=== PATIENT | male | born 1960 | race Caucasian/White ===

== ENCOUNTER → 2020-05-25 09:09 | Outpatient (BNVA) | payer OTHER, SELFPAY | PROVIDERS: PCP Internal Medicine; Referring Provider Internal Medicine; Visit Provider Orthopaedic Surgery | DX: Z76.89 Persons encountering health services in other specified circumstances (principal) ==

== ENCOUNTER → 2020-05-31 12:32 | Outpatient (BNVA) | payer OTHER, SELFPAY | PROVIDERS: PCP Internal Medicine; Visit Provider Orthopaedic Surgery | DX: Z76.89 Persons encountering health services in other specified circumstances (principal) ==

== ENCOUNTER → 2020-06-07 13:31 | Outpatient (BNVA) | payer OTHER, SELFPAY | PROVIDERS: PCP Internal Medicine; Visit Provider Physician Assistant | DX: Z76.89 Persons encountering health services in other specified circumstances (principal) ==

== ENCOUNTER 2020-06-11 15:03 | Outpatient (REF) | payer OTHER, SELFPAY | END 2020-06-11 15:04 | disposition home or self-care (01) | LOC: HO.LNP 15:03 | PROVIDERS: Visit Provider Physician Assistant | DX: M16.31 Unilateral osteoarthritis resulting from hip dysplasia, right hip (principal) | CPT/HCPCS: 94060; 94727; 94729 ==

== ENCOUNTER 2020-07-03 09:57 | Outpatient (REF) | payer OTHER, SELFPAY ==
[2020-07-03 11:05] LABS: MANUAL DIFF FLAG NO
[2020-07-03 11:10] LABS: Basophils Percent Auto 0.5 % (0-2); Eosinophils Absolute Auto 0.1 X10*3/uL (0.0-0.4); Eosinophils Percent Auto 1.6 % (0-4); Imm Gran Abs Auto 0.01 X10*3/uL (0.00-0.03); Imm Gran Pct Auto 0.2 % (0.0-0.4); Lymphocytes Absolute Auto 1.7 X10*3/uL (1.2-4.9); Lymphocytes Percent Auto 37.7 % (20-40); Mean Corpuscular Hemoglobin 29.6 pg (27.0-33.0); Mean Corpuscular Volume 87.2 fL (80-98); Monocytes Absolute Auto 0.4 X10*3/uL (0.1-1.2); Monocytes Percent Auto 8.6 % (2-11); Neutrophils Absolute Auto 2.3 X10*3/uL (2.0-8.3); Neutrophils Percent Auto 51.4 % (45-73); Platelet Count 179 X10*3/uL (160-400); White Blood Count 4.4 X10*3/uL (4.8-10.8)
[2020-07-03 11:44] LABS: Anion Gap 12 (12-20); Blood Urea Nitrogen 15 mg/dL (9-16); Calcium 9.1 mg/dL (8.4-10.2); Carbon Dioxide 27 mmol/L (22-29); Chloride 102 mmol/L (96-108); Estimated Glomerular Filt Rate > 60; Glucose Random 97 mg/dL (60-115); Potassium 4.3 mmol/l (3.3-5.1); Sodium 137 mmol/L (135-145)
[2020-07-10 13:59] LABS: Hematocrit 44.1 % (42-52)
[2020-07-10 14:01] LABS: Mean Platelet Volume 9.4 fL (9.4-12.4); Red Blood Count 5.06 X10*6/uL (4.60-5.80)
== END 2020-07-03 09:58 | disposition home or self-care (01) ==
LOC: HO.LAB 09:57
PROVIDERS: Physician Assistant; PCP Internal Medicine; Visit Provider Orthopaedic Surgery
DX: Z01.812 Encounter for preprocedural laboratory examination (principal)
CPT/HCPCS: 36415; 80048; 85025; 86850

== ENCOUNTER 2020-07-09 06:13 | Inpatient (IN) | payer OTHER, SELFPAY ==
[2020-06-11 11:57] VITALS: BP 153/96; PULSE 72; RESP 20; O2SAT 99; BMI 37.5
--- NOTE | 2020-06-11 12:49 | HO.ANESPROP2 ---
HPI - Anesthesia Eval Consult details Narrative: 59yo M for R KALEIGH PCP Cleared Pt cx'd DOS d/t infection risk. To be rescheduled after abx. [facility] Past Medical History Medical History (Updated 06/11/20 @ 12:50 by Talisha Perry) Arthritis Elevated cholesterol LIANNA on CPAP Seasonal allergies Skin cancer Surgical History Surgical History History of bilateral carpal tunnel release History of total right knee replacement History of vasectomy Hx of colonoscopy Hx of esophagogastroduodenoscopy Hx of nasal septoplasty S/P lumbar microdiscectomy S/P skin cancer resection Social History Social History Are you a primary morning caregiver to a significant other at home: No Do you presently have visiting nurse or other home services: No Smoking Status: Never smoker Use of substances other than those prescribed or required for medical reasons: No Have you been hit, kicked, punched, or otherwise hurt by someone within the past year? If so, by whom?: No Advance Directives: No Advance Directives Information Provided: No Recently lost weight without trying: No Narrative Narrative: No recent illness >4 mets with walking Meds Allergies Allergy/AdvReac Type Severity Reaction Status Date / Time seasonal Allergy Unknown nasal Uncoded 06/08/20 12:56 congestion, affects hearing morphine AdvReac Unknown O2 dropped Uncoded 06/08/20 12:56 Home Medications Medication Instructions Recorded Confirmed Type fexofenadine 180 mg PO DAILY 06/08/20 06/08/20 History ibuprofen [Motrin] 800 mg PO Q12H PRN 06/08/20 06/08/20 History rosuvastatin 1 tab PO BEDTIME 06/08/20 06/08/20 History Exam Exam Date and Time: June 11, 2020 1249 Height,Weight and Vital Signs: Height 5 ft 8 in Weight 112.037 kg Last Vital Signs Pulse 72 06/11/20 11:57 Resp 20 06/11/20 11:57 BP 153/96 H 06/11/20 11:57 Pulse Ox 99 06/11/20 11:57 Pertinent Lab Results Pertinent Lab Results: Laboratory Tests 06/11/20 06/11/20 14:13 14:13 WBC 5.5 Hgb 14.9 Hct 43.9 Plt Count 191 Sodium 140 Potassium 4.5 Chloride 103 BUN 20 H Creatinine 1.01 Narrative Narrative: EKG 06/11/20: NSR, nonspecific T wave abn ECHO 2015: LVEF 60-65% Exercise Stress 2015: no evidence of ischemic ekg changes Airway Mallampati Class: III TM Dist: >3cm Neck ROM: Full Loose/Missing/Broken Teeth: No (Left lower permanent bridge) Heart: RRR Lungs: CTAB Assessment and Plan Assessment Anesthesia Assessment: Anesthesia Plan Discussed and PAT Visit
--- NOTE | 2020-06-11 14:08 | ECG_ITS ---
Test Reason : HIP SURG ANESTHESIA Blood Pressure : / mmHG Vent. Rate : 061 BPM Atrial Rate : 061 BPM P-R Int : 166 ms QRS Dur : 082 ms QT Int : 428 ms P-R-T Axes : 029 042 015 degrees QTc Int : 430 ms Normal sinus rhythm Nonspecific T wave abnormality Inferior leads Borderline ECG When compared with ECG of 10-OCT-2013 21:49, No significant changes seen Referred By: Penelope Mehta Electronically Signed By:KURTIS BATISTA MD
[2020-06-11 14:28] LABS: MANUAL DIFF FLAG NO
[2020-06-11 14:34] LABS: Basophils Percent Auto 0.5 % (0-2); Eosinophils Absolute Auto 0.1 X10*3/uL (0.0-0.4); Eosinophils Percent Auto 1.5 % (0-4); Hematocrit 43.9 % (42-52); Hemoglobin 14.9 g/dl (14.0-18.0); Imm Gran Abs Auto 0.01 X10*3/uL (0.00-0.03); Imm Gran Pct Auto 0.2 % (0.0-0.4); Lymphocytes Percent Auto 35.8 % (20-40); Mean Corpuscular HGB Conc 33.9 g/dl (31.0-36.0); Mean Corpuscular Hemoglobin 30.3 pg (27.0-33.0); Mean Corpuscular Volume 89.2 fL (80-98); Mean Platelet Volume 9.5 fL (9.4-12.4); Monocytes Absolute Auto 0.5 X10*3/uL (0.1-1.2); Monocytes Percent Auto 8.4 % (2-11); Neutrophils Percent Auto 53.6 % (45-73); Platelet Count 191 X10*3/uL (160-400); Red Blood Count 4.92 X10*6/uL (4.60-5.80); Red Cell Distribution Width 12.4 % (11.0-16.0); White Blood Count 5.5 X10*3/uL (4.8-10.8)
[2020-06-11 14:58] LABS: Anion Gap 13 (12-20); Blood Urea Nitrogen 20 mg/dL (9-16); Calcium 8.5 mg/dL (8.4-10.2); Carbon Dioxide 29 mmol/L (22-29); Chloride 103 mmol/L (96-108); Creatinine Clr Calc Pharmacy 96.8; Estimated Glomerular Filt Rate > 60; Glucose Random 92 mg/dL (60-115); Potassium 4.5 mmol/l (3.3-5.1); Sodium 140 mmol/L (135-145)
[2020-06-12 08:31] LABS: MRSA Nasal PCR POSITIVE (Negative); SA Nasal PCR POSITIVE (Negative)
--- NOTE | 2020-06-14 21:49 | HP_ITS ---
DATE OF SERVICE: 06/18/2020 HISTORY OF PRESENT ILLNESS: The patient is scheduled for right total hip by Dr. Singh on 06/18/2020. His past history, previous surgeries include vasectomy, lumbar disk deviated septum, left carpal tunnel, and right total knee replacement. Major illnesses have been dyslipidemia, allergic rhinitis, and degenerative joint disease. REVIEW OF SYSTEMS: HEENT: He is not having any headaches. No problem with his vision or hearing. No sore throat or sinus trouble. CARDIORESPIRATORY: Denies any chest pain, cough, or shortness of breath. GI: No nausea or vomiting. No diarrhea or constipation. No heartburn. : No dysuria. He has nocturia x1. BONE AND JOINT: He complained of pain over the right hip and he has pain with ambulation. ENDOCRINE: No diabetes or thyroid problems. DERMATOLOGIC: No rashes. NEUROLOGIC: No history of syncope or seizures. Operations have included vasectomy, lumbar disk deviated septum, left carpal tunnel, and right total hip replacement. MEDICATIONS: His medications at home have been Crestor 10 mg daily for dyslipidemia, Mucinex for occasional bronchitis, and he has been using some Motrin, but he has stopped that recently. SOCIAL HISTORY: He is . Lives with his . He does not smoke and has a few drinks of alcohol a week. 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 His mother at 80 of GI bleed. Father at 62 of stroke and heart attack. He has 2 daughters and a son alive and well. PHYSICAL EXAMINATION: GENERAL: Shows a 59-year-old man. He is alert, in no acute distress. HEENT: His pupils were equal and reactive. Sclerae, non-icteric. Throat, normal. NECK: Supple without nodes. LUNGS: Clear. HEART: Regular. No murmurs. ABDOMEN: Nontender. No masses. EXTREMITIES: Without cyanosis or edema. He has some limitation of motion with external rotation of the right hip. SKIN: Without rash. GENITALIA AND RECTAL: Done at the time of his physical last August were normal. NEUROLOGIC: Exam was normal. The patient is medically cleared for right total hip, did have a cardiogram, it showed some minor nonspecific ST-T, it is basically unchanged from 08/18/2019. His labs showed a hemoglobin of 14.9, hematocrit of 43.9, white count of 5500, and platelets are 191,000. His electrolytes were normal. BUN 20 and creatinine 1.01. Random sugar was 92 and calcium was 8.5. The patient is medically cleared for right hip replacement by Dr. Singh on 06/18/2020. MD TIMMY Lundberg/SARAH / [id number]
[2020-06-18 06:03] VITALS: BP 140/82; PULSE 63; RESP 18; TEMP 36.2; O2SAT 96
[2020-06-18] MEDS: Lactated Ringers 1,000 ML 100 ML IVCONT (06:38)
[2020-06-18] MEDS: oxyCODONE HCl ER 10 MG TAB.ER.12H PO (06:39)
[2020-06-18 06:47] LABS: SARS COV2 PCR INHOUSE NEGATIVE (Negative)
--- NOTE | 2020-06-18 07:45 | PC.NURSE ---
pt surgery cancelled by dr shah will f/u in a few weeks when healed and will be on abx ptaware of plan of care
--- NOTE | 2020-07-04 09:15 | P.CONAN_ITS ---
Documented by User: Talisha Herbertney 07/04/20 09:21 HPI - Anesthesia Eval Consult details Narrative: 59yo M for Hip Total Replacement right Cx'd 06/18/20 d/t rash/infx risk on operative leg. Completed course of abx. [facility] Past Medical History Medical History Arthritis Elevated cholesterol High cholesterol LIANNA on CPAP Seasonal allergies Skin cancer Family History Family History Father No problems noted. Mother No problems noted. Surgical History Surgical History History of bilateral carpal tunnel release History of total right knee replacement History of total right knee replacement History of vasectomy Hx of colonoscopy Hx of esophagogastroduodenoscopy Hx of nasal septoplasty S/P lumbar microdiscectomy S/P skin cancer resection Social History Social History Are you a primary acute care certified nursing assistant to a significant other at home: No Do you presently have visiting nurse or other home services: No Smoking Status: Never smoker Use of substances other than those prescribed or required for medical reasons: No Have you been hit, kicked, punched, or otherwise hurt by someone within the past year? If so, by whom?: No Advance Directives: No Advance Directives Information Provided: No Recently lost weight without trying: No Current occupational status: retired Narrative Narrative: No recent illness >4 mets with walking Meds Allergies Allergy/AdvReac Type Severity Reaction Status Date / Time morphine Allergy respiratory Verified 07/03/20 11:20 seasonal Allergy Unknown nasal Uncoded 07/03/20 11:20 congestion, affects hearing morphine AdvReac Unknown O2 dropped Uncoded 07/03/20 11:20 Home Medications Medication Instructions Recorded Confirmed Type aspirin 81 mg tablet,delayed 81 mg PO DAILY 05/31/20 07/03/20 History release fexofenadine 180 mg tablet 180 mg PO DAILY 05/31/20 07/03/20 History ibuprofen 800 mg tablet 800 mg PO Q8H 05/31/20 07/03/20 History rosuvastatin 10 mg tablet 10 mg PO BEDTIME 05/31/20 07/03/20 History fexofenadine 180 mg PO DAILY 06/08/20 06/08/20 History ibuprofen [Motrin] 800 mg PO Q12H PRN 06/08/20 06/08/20 History rosuvastatin 1 tab PO BEDTIME 06/08/20 06/08/20 History Exam Exam Date and Time: July 04, 2020914 Height,Weight and Vital Signs: Height 5 ft 8 in Weight 112.037 kg Last Vital Signs Temp 97.2 F 06/18/20 06:03 Pulse 63 06/18/20 06:03 Resp 18 06/18/20 06:03 BP 140/82 H 06/18/20 06:03 Pulse Ox 96 06/18/20 06:03 Pertinent Lab Results Pertinent Lab Results: Laboratory Tests 06/11/20 06/11/20 06/11/20 14:13 14:13 14:13 WBC 5.5 RBC 4.92 Hgb 14.9 Hct 43.9 MCV 89.2 MCH 30.3 MCHC 33.9 RDW 12.4 Plt Count 191 MPV 9.5 Immature Gran % (Auto) 0.2 Neut % (Auto) 53.6 Lymph % (Auto) 35.8 Sunflower % (Auto) 8.4 Eos % (Auto) 1.5 Baso % (Auto) 0.5 Lymph # (Auto) 2.0 Sunflower # (Auto) 0.5 Eos # (Auto) 0.1 Baso # (Auto) 0.0 Abs Immat Gran (auto) 0.01 Absolute Neuts (auto) 3.0 Absolute Nucleated RBC 0.000 Nucleated RBC % (auto) 0.0 Sodium 140 Potassium 4.5 Chloride 103 Carbon Dioxide 29 Anion Gap 13 BUN 20 H Creatinine 1.01 Estim Creat Clear Calc 96.8 Estimated GFR > 60 Random Glucose 92 Calcium 8.5 Nasal Screen MRSA (PCR) Nasal S. aureus Screen Nasal MRSA/S.aureus Interp Coronavirus (PCR) Blood Type O Positive Antibody Screen NEGATIVE 06/11/20 06/18/20 07/03/20 Unknown 05:38 10:50 WBC RBC Hgb Hct MCV MCH MCHC RDW Plt Count MPV Immature Gran % (Auto) Neut % (Auto) Lymph % (Auto) Sunflower % (Auto) Eos % (Auto) Baso % (Auto) Lymph # (Auto) Sunflower # (Auto) Eos # (Auto) Baso # (Auto) Abs Immat Gran (auto) Absolute Neuts (auto) Absolute Nucleated RBC Nucleated RBC % (auto) Sodium Potassium Chloride Carbon Dioxide Anion Gap BUN Creatinine Estim Creat Clear Calc Estimated GFR Random Glucose Calcium Nasal Screen MRSA (PCR) POSITIVE A Nasal S. aureus Screen POSITIVE A Nasal MRSA/S.aureus Interp SEE NOTE Coronavirus (PCR) NEGATIVE Blood Type O Positive Antibody Screen NEGATIVE Narrative Narrative: EKG 06/11/20: NSR, nonspecific T wave abn ECHO 2014: LVEF 60-65% Exercise Stress 2015: no evidence of ischemic ekg changes Airway Mallampati Class: III Neck ROM: Full Loose/Missing/Broken Teeth: No (LL perm bridge) Heart: RRR Lungs: CTAB Other: Exam performed at [facility] 06/11/20. Assessment and Plan Assessment Anesthesia Assessment: Anesthesia Plan Discussed, [facility] Visit (06/11/20) and Chart Reviewed Documented by User: Abelardo Nava MD 07/09/20 07:32 [facility] Past Medical History Medical History Arthritis Elevated cholesterol High cholesterol LIANNA on CPAP Seasonal allergies Skin cancer Family History Family History Father No problems noted. Mother No problems noted. Surgical History Surgical History History of bilateral carpal tunnel release History of total right knee replacement History of total right knee replacement History of vasectomy Hx of colonoscopy Hx of esophagogastroduodenoscopy Hx of nasal septoplasty S/P lumbar microdiscectomy S/P skin cancer resection Social History Social History Are you a primary acute care certified nursing assistant to a significant other at home: No Do you presently have visiting nurse or other home services: No Smoking Status: Never smoker Use of substances other than those prescribed or required for medical reasons: No Have you been hit, kicked, punched, or otherwise hurt by someone within the past year? If so, by whom?: No Advance Directives: No Advance Directives Information Provided: No Recently lost weight without trying: No Current occupational status: retired Meds Allergies Allergy/AdvReac Type Severity Reaction Status Date / Time morphine Allergy respiratory Verified 07/03/20 11:20 seasonal Allergy Unknown nasal Uncoded 07/03/20 11:20 congestion, affects hearing morphine AdvReac Unknown O2 dropped Uncoded 07/03/20 11:20 Home Medications Medication Instructions Recorded Confirmed Type aspirin 81 mg tablet,delayed 81 mg PO DAILY 05/31/20 07/03/20 History release fexofenadine 180 mg tablet 180 mg PO DAILY 05/31/20 07/03/20 History ibuprofen 800 mg tablet 800 mg PO Q8H 05/31/20 07/03/20 History rosuvastatin 10 mg tablet 10 mg PO BEDTIME 05/31/20 07/03/20 History fexofenadine 180 mg PO DAILY 06/08/20 06/08/20 History ibuprofen [Motrin] 800 mg PO Q12H PRN 06/08/20 06/08/20 History rosuvastatin 1 tab PO BEDTIME 06/08/20 06/08/20 History Assessment and Plan Assessment Anesthesia Assessment: Anesthesia Plan Discussed and Chart Reviewed Final Anesthetic Review NPO: Yes ASA Class: III Final Preanesthetic Review: No Changes in Pt Med Stat, Meds/Allgs Chart Reviewed, Consent Obtained/Reviewed and Anes Risks/Benef Reviewed Patient Risk: Intermediate Procedure Risk: Intermediate Anesthetic Plan Anesthetic Plan: GA and Regional Block Disposition: Standard PACU
[2020-07-09] VITALS (19 sets, daily range): BP systolic 110–132; BP diastolic 60–81; PULSE 54–69; RESP 12–20; TEMP 36.1–37; O2SAT 95–100
[2020-07-09 06:51] LABS: COVID-19 Test Negative (Negative); IDNOW Serial# 9DD0AD1C
[2020-07-09] MEDS: oxyCODONE HCl ER 10 MG TAB.ER.12H PO (06:53)
--- NOTE | 2020-07-09 07:02 | PC.NURSE ---
patient has a right lower leg scratch that is scabbed and healed. patient states he was seen on thursday to check the wound. ok to proceed per patient. text instrum just to verify.
[2020-07-09] MEDS: Lactated Ringers 1,000 ML 100 ML IVCONT ×2 (07:09→14:16)
--- NOTE | 2020-07-09 07:15 | PC.NURSE ---
instrum aware ok to proceed
--- NOTE | 2020-07-09 07:58 | PC.NURSE ---
patient receving nerve block.
--- NOTE | 2020-07-09 08:10 | MHC.SHP ---
Pre-Procedural Eval Section A The patient is an INPATIENT: No Changes since office visit: No Cold of Flu in the past 2 weeks, No New Medical Problems, No Changes in Medication and No Patient answered all questions The History & Physical has been completed within 30 days and I have reviewed it.: Yes Section B Chief Complaint: RIGHT TOTAL HIP ARTHROPLASTY Allergies: Allergies Allergy/AdvReac Type Severity Reaction Status Date / Time morphine Allergy respiratory Verified 07/03/20 11:20 seasonal Allergy Unknown nasal Uncoded 07/03/20 11:20 congestion, affects hearing morphine AdvReac Unknown O2 dropped Uncoded 07/03/20 11:20 Plan Patient has been examined and remains a candidate for the planned procedure
--- NOTE | 2020-07-09 08:25 | PC.NURSE ---
called kris mendez rn at [facility] to verify when he last took his asa and plavix and waas 07/04 per visiting rn.
--- NOTE | 2020-07-09 08:26 | PC.NURSE ---
labs being drawn at this time.
--- NOTE | 2020-07-09 08:43 | PC.NURSE ---
patients surgery is delayed due to vancomycin infusing. 2grams takes two hours per pharmacy
--- NOTE | 2020-07-09 11:08 | PM.PRCOR ---
Brief Operative Note Date of procedure: 07/09/20 Pre-op diagnosis: oa right hip Post-op diagnosis: same Procedure: RIGHT KALEIGH Anesthesia: GETA and regional Surgeon: Delisa Singh Electrical Engineering Designer: Penelope Mehta Estimated blood loss (mL): 150 Condition: stable Disposition: PACU
[2020-07-09] MEDS: HYDROmorphone HCl 0.5 MG/0.5 ML SYRINGE 0.25 MG IVPUSH ×4 (11:41→11:56)
[2020-07-09] MEDS: HYDROmorphone HCl 0.5 MG/0.5 ML SYRINGE IVPUSH ×2 (12:01→12:11)
--- NOTE | 2020-07-09 13:07 | OP_ITS ---
SURGEON: Delisa Singh MD PREOPERATIVE DIAGNOSIS: Osteoarthritis/hip dysplasia, right hip. POSTOPERATIVE DIAGNOSIS: Osteoarthritis/hip dysplasia, right hip. PROCEDURE PERFORMED: Right total hip arthroplasty - Maxim Accolade II, size 4 x 132 femur, 58 mm revision Tritanium acetabulum, 36 mm x 0 mm BIOLOX head, 36 mm x 0 acetabular liner. ESTIMATED BLOOD LOSS: COMPLICATIONS: ANESTHESIA: ASSISTANTS: ALFONZO West. SPECIMENS: CLINICAL NOTE: This gentleman has had ongoing problem with pain and discomfort involving his right hip. He had failed nonoperative management. Therefore, after explaining the risks, benefits, and alternatives and answering all his questions, it was mutually agreed upon to carry out the following procedure. DESCRIPTION OF PROCEDURE: Under a fascia diana block as well as general anesthetic, the patient was placed in the left lateral decubitus position with the right hip up. The right hip was then prepped and draped in standard fashion with the right leg free. Surgical time-out was then performed. The patient was identified, procedure confirmed, site confirmed. Medical analogy and history reviewed. Preoperative antibiotics were given. Standard DVT prophylaxis was in place. All other items were discussed and agreed upon. A standard anterolateral approach to the hip was carried out, taken down through subcutaneous tissues. Hemostasis was achieved along the way using electrocautery, brought us down to the level of fascia diana, which was divided along the length of the incision. This brought us to the abductor musculature with the anterior two-thirds were taken through the tendon directly onto the trochanter and elevated off the capsule down to the level of the acetabulum. Capsulectomy was then performed. The hip was dislocated. It was resected according to the preoperative templating. We then turned our attention to the acetabulum. There was an abundant amount of soft tissue, capsular inflammatory tissue as well as labrum, this was all removed. The floor was identified. It was noted that it was superior and lateral and we would have to medialize it somewhat. Starting with a 5 mm reamer, it was sequentially reamed up to a 57 mm depth. This had good coverage anterior and posteriorly, a little uncovered superiorly. However, fully seated, had circumferential bleeding. A trial reduction was performed with the 57 mm trial. This showed good purchase and excellent alignment. Therefore, the 58 mm revision acetabulum was selected and brought up on the table. The acetabulum was thoroughly irrigated. The permanent component was brought up on the table, and was inserted with excellent purchase and fully seated. The 0 degree trial liner was put into place for a 36 mm head. We then turned our attention to the femur. Box osteotome was used to lateralize the canal. The T-reamer was used to sound the canal. It was sequentially broached from a 0 to a 4, where the 4 was just a little bit proud, but it had excellent fit and fill and rotational control and that was what we had templated preoperatively. The reduction was performed with the 132 degree collar and the standard head for 36 mm. It was located, had excellent leg lengths, full range of motion, and stability, and therefore the size 4 Accolade II x 136 femur with the 36 mm standard BIOLOX head and the 36 mm 0 degree acetabular liner was selected and brought up on the table. All the trial components were removed after the hip was dislocated. The acetabulum was thoroughly irrigated. The permanent liner was tapped into place. Turning our attention to the femur. It was thoroughly irrigated. The permanent components were brought up on the table. It was press-fit into place as the broach had been. The Otto taper was cleaned and dried. The head was tapped into place. Final reduction was then performed demonstrating the hip had excellent leg lengths, stability, had full range of motion. Therefore, we proceeded to closure. Wound was thoroughly irrigated. The abductor musculature repaired with #2 Dexon. Fascia idana was closed with #2 Quill suture. Subcutaneous tissue was approximated using interrupted 2-0 Dexon. Skin was closed with jay. Sterile dressing was then applied. The patient's anesthesia was then reversed and transferred supine to the room bed, then taken to recovery room in good condition. Intraoperatively, there was a second unit of tranexamic acid given at the time of closure as there was 150 mL blood loss. No intraoperative transfusions or complications. MD BHUPINDER Shultz/SARAH / [id number]
[2020-07-09] MEDS: Acetaminophen 325 MG TABLET 650 MG PO ×2 (16:06→21:45)
[2020-07-09] MEDS: oxyCODONE HCl Immed Release 5 MG TABLET 10 MG PO ×2 (16:06→21:45)
[2020-07-09] MEDS: Ketorolac Tromethamine 15 MG/ML VIAL IVPUSH ×2 (16:06→21:45)
[2020-07-09] MEDS: 0.9 % Sodium Chloride Flush 3 ML SYRINGE IVFLUSH (21:47)
[2020-07-10] VITALS (8 sets, daily range): BP systolic 107–156; BP diastolic 48–78; PULSE 60–78; RESP 18–71; TEMP 36.3–36.6; O2SAT 98–100; BMI 37.5
[2020-07-10] MEDS: Lactated Ringers 1,000 ML 100 ML IVCONT (02:41)
[2020-07-10] MEDS: Acetaminophen 325 MG TABLET 650 MG PO ×4 (03:23→22:09)
[2020-07-10] MEDS: Ketorolac Tromethamine 15 MG/ML VIAL IVPUSH ×4 (03:23→22:10)
[2020-07-10] MEDS: oxyCODONE HCl Immed Release 5 MG TABLET 10 MG PO ×4 (03:24→22:10)
--- NOTE | 2020-07-10 05:37 | PC.NURSE ---
PATIENT IS POST OP DAY #1RIGHT TOTAL HIP, SLEPT WELL, AQUACEL DSG C-D-I WITH SMALL OLD STAIN AND GENERALIZED HIP AND THIGH EDEMA. SCHEDULED PAIN MEDICATIONS ORDERED SEQUENTIAL STOCKINGS ON BILAT, VSS.
[2020-07-10 06:51] LABS: Hematocrit 31.3 % (42-52); Hemoglobin 10.7 g/dl (14.0-18.0)
--- NOTE | 2020-07-10 07:00 | XR_ITS ---
EXAMINATION: XR HIP, RIGHT CLINICAL INFORMATION: Postop COMPARISON: Previous x-ray most recent January 2020 TECHNIQUE: Two views of the right hip and one view of the pelvis. FINDINGS: There is a new right hip replacement in satisfactory position. No fracture or dislocation is seen. Bones of the pelvis are unremarkable. There are postoperative changes to the soft tissues. XR/XR hip RT w PEL1V IMPRESSION: Satisfactory appearance of right hip replacement.
--- NOTE | 2020-07-10 07:46 | HO.POSTANES ---
Post Anesthesia Evaluation Post Anesthesia Evaluation Vital Signs: Vital Signs Temp Pulse Resp BP Pulse Ox 07/10/20 07:41 97.8 F 60 18 135/63 99 07/10/20 04:00 97.9 F 69 71 H 107/48 L 100 07/09/20 23:55 98.2 F 67 20 132/60 100 07/09/20 19:54 98.1 F 69 20 113/72 100 Anesthesia: General Mental Status: Awake Pain Control: Satisfactory Nausea/Vomiting: None Hydration: Adequate Anesthesia-Related Issues: No Anes. Related Issues
--- NOTE | 2020-07-10 07:57 | PM.PNORT ---
Subjective Subjective Date of Service: 07/10/20 Interval history: POD1 s/p RTHA resting in bed. Pt. states he has significant pain with movement but is manageable when laying in bed. No overnight events. Physical Exam Vital Signs: Vital Signs: Last Vital Signs Temp 97.8 F 07/10/20 07:41 Pulse 60 07/10/20 07:41 Resp 18 07/10/20 07:41 BP 135/63 07/10/20 07:41 Pulse Ox 99 07/10/20 07:41 Body Mass Index 37.5 Const: General: cooperative, healthy appearing and no acute distress Resp: Effort & Inspection: normal respiratory effort and able to speak in complete sentences Cardio: Rate: regular rate Peripheral pulses: Peripheral pulses 2+ throughout GI: Inspection: Yes normal to inspection Palpation (GI): Soft to palpation Skin: General skin exam: no rashes or lesions noted Extrem: Other: No ecchymosis, redness, or drainage. Dressing is clean dry and intact. NVI Progress Note: A&P Assessment and plan (1) Status post right knee replacement: Status: Acute Assessment and Plan: Continue pain mgmnt Begin ASA for dvt ppx begin PT for RT KALEIGH Dispo planning-Pending PT eval, pain mgmnt Fall Risk Details Current Medications: Current Medications Generic Name Dose Route Start Last Admin Trade Name Luis Eq PRN Reason Stop Dose Admin Acetaminophen 650 mg 07/09/20 15:07 07/10/20 03:23 Acetaminophen 325 Mg Tablet PO 650 mg Q6H ALFRED Administration Aspirin 325 mg 07/10/20 22:00 Aspirin 325 Mg Tablet PO BID ALFRED Hydromorphone HCl 0.5 mg 07/09/20 11:55 07/09/20 12:11 Hydromorphone Hcl 0.5 Mg/0.5 Ml Syringe IVPUSH 0.5 mg Q5M PRN Administration Pain, Severe (Pain Scale 7-10) Hydromorphone HCl 0.5 mg 07/09/20 15:07 Hydromorphone Hcl 0.5 Mg/0.5 Ml Syringe IVPUSH Q4H PRN Pain, Severe (Pain Scale 7-10) Ketorolac Tromethamine 15 mg 07/09/20 16:00 07/10/20 03:23 Ketorolac Tromethamine 15 Mg/Ml Vial IVPUSH 15 mg Q6H ALFRED Administration Naloxone HCl 0.2 mg 07/09/20 15:07 Naloxone Hcl 0.4 Mg/Ml Vial IVPUSH Q2M PRN Excessive sedation or RR < 8 Ondansetron HCl 4 mg 07/09/20 15:07 Ondansetron Hcl 4 Mg/2 Ml Vial IVPUSH Q8H PRN Nausea and Vomiting Oxycodone HCl 10 mg 07/09/20 16:00 07/10/20 03:24 Oxycodone Hcl Immed Release 5 Mg Tablet PO 10 mg Q6H ALFRED Administration Sodium Chloride 3 ml 07/09/20 16:00 07/09/20 21:47 0.9 % Sodium Chloride Flush 3 Ml Syringe IVFLUSH 3 ml QSHIFT ALFRED Administration Time Spent With Patient Time: Total time spent is greater than 50% in coordination of care (as documented) at patient's floor/unit and/or counseling patient: Time with patient: 15 - 24 minutes
--- NOTE | 2020-07-10 10:19 | MHC.CM.PN ---
nurse client care consultant note - electronic medical record reviewed case discussed with staff nurse patient lives with his and two adult children patient is active ,independent in all adls and mobility, without any devices. 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 he confirmed his pcp dr zahra coyle and reported that he will be discharged home and requested the [facility] for home physical theap[facility] as he had them the last time. referra iniated to them discharge plan home with his family with the [facility] for home physical thearpy transportation family pcp dr zahra coyle patient to call for hospital discharge follow up orthopedic surgeon isabella up per discharge instructions
[2020-07-10] MEDS: 0.9 % Sodium Chloride Flush 3 ML SYRINGE IVFLUSH ×2 (10:31→17:49)
[2020-07-10] MEDS: HYDROmorphone HCl 0.5 MG/0.5 ML SYRINGE IVPUSH (13:05)
[2020-07-10] MEDS: Aspirin 325 MG TABLET PO (22:09)
[2020-07-11] VITALS: BP 119/58; PULSE 74; RESP 16; O2SAT 98
[2020-07-11] MEDS: 0.9 % Sodium Chloride Flush 3 ML SYRINGE IVFLUSH ×2 (00:14→07:38)
[2020-07-11 03:49] VITALS: BP 134/60; PULSE 70; RESP 14; TEMP 37; O2SAT 100
[2020-07-11] MEDS: oxyCODONE HCl Immed Release 5 MG TABLET 10 MG PO ×2 (03:52→09:24)
[2020-07-11] MEDS: Acetaminophen 325 MG TABLET 650 MG PO ×2 (03:53→09:24)
[2020-07-11] MEDS: Ketorolac Tromethamine 15 MG/ML VIAL IVPUSH ×2 (03:53→09:23)
[2020-07-11 07:16] VITALS: BP 153/77; PULSE 75; RESP 18; TEMP 36.3; O2SAT 99
[2020-07-11 08:15] VITALS: BP 153/77; PULSE 75; O2SAT 99
[2020-07-11] MEDS: Aspirin 325 MG TABLET PO (09:23)
--- NOTE | 2020-07-11 11:06 | MHC.CM.PN ---
NURSE TEMPORARY ADMINISTRATIVE ASSISTANT NOTE EECTRONIC MEDICAL RECORD REVIEWED AND WITH CASE DISCUSSED WITH STAFF NURSE , PATIENT JOSÉ BE DISCHAERGED HOME TODAY PAPERWORK REVIEWED WITH HIM. DISCHARGE HOME WITH AND FAMILY ALFREDA MAZARIEGOS FOR HOME PHYSICA THEKRYSTAL TO START TM[facility] PCP DR IHRO ARZOLA PATIENT TO CALL FOR [facility] FOLLOW UP ORTHOPEDIC SURGICAL FLLOW UP PER DISCHARGE INSTRUCTIONS TRANSPORTATION /FAMILY
--- NOTE | 2020-07-11 15:10 | P.DS_ITS ---
DS: Providers Provider Date of admission: 07/09/20 06:13 Primary care physician: Tom Coyle MD DS: Diagnosis Discharge Diagnosis (1) Status post right knee replacement: Status: Acute Problem details: Mr Feliciano is a 59-year-old gentleman who presented to our office with ongoing right hip pain. He was found have osteoarthritis of the right hip and continued to have difficulty with daily activities therefore he had consented to move forward with right total hip arthroplasty. DS: Medications Discharge Medications Home Medications: Home Medications Medication Instructions Recorded Confirmed aspirin 81 mg tablet,delayed 81 mg PO DAILY 05/31/20 07/03/20 release fexofenadine 180 mg tablet 180 mg PO DAILY 05/31/20 07/03/20 ibuprofen 800 mg tablet 800 mg PO Q8H 05/31/20 07/03/20 rosuvastatin 10 mg tablet 10 mg PO BEDTIME 05/31/20 07/03/20 fexofenadine 180 mg PO DAILY 06/08/20 06/08/20 ibuprofen 800 mg PO Q12H PRN 06/08/20 06/08/20 rosuvastatin 1 tab PO BEDTIME 06/08/20 06/08/20 Previous Rx's Medication Instructions Recorded acetaminophen 650 mg PO Q6H 30 Days #240 tab 07/11/20 aspirin 325 mg PO BID 30 Days #60 tab 07/11/20 docusate sodium [Colace] 100 mg PO BID 30 Days #60 cap 07/11/20 oxycodone 10 mg PO Q6H 7 Days #28 tab 07/11/20 DS: Summary Hospital Course Hospital Course: The patient underwent a successful right total hip arthroplasty he was transferred to PACU and then to the floor where he recovered during his stay his vitals were stable afebrile at 97.3. Labs unremarkable hemoglobin 10.7 hematocrit 31.3. Postop day 1 he was started on aspirin 325 mg p.o. b.i.d. for DVT prophylaxis he also received physical therapy and occupational therapy services twice a day. Prior to discharge his Aquacel dressing was changed his incision was clean dry and intact new Aquacel dressing applied and the plan is to be discharged home with VNA services. Time Spent with Patient Time attestation: Total time spent providing and/or coordinating discharge services: Physical Exam Vital Signs: Vital Signs: Last Vital Signs Temp 97.3 F 07/11/20 07:16 Pulse 75 07/11/20 08:15 Resp 18 07/11/20 07:16 BP 153/77 H 07/11/20 08:15 Pulse Ox 99 07/11/20 08:15 Body Mass Index 37.5 Const: General: cooperative, healthy appearing and no acute distress Resp: Effort & Inspection: normal respiratory effort and able to speak in complete sentences Cardio: Rate: regular rate Peripheral pulses: Peripheral pulses 2+ throughout GI: Inspection: Yes normal to inspection Palpation (GI): Soft to palpation Skin: General skin exam: no rashes or lesions noted Extrem: Other: Right hip incision clean dry and intact. Sloane intact. No erythema, mild swelling. DS: Data Data Completed and Pending Completed studies during hospitalization [Text1]: Pending at discharge 07/09/20 10:39 Surgical [PTH] Routine Labs on day of discharge: 06/11/20 MRSA Nasal Screen Routine 06/11/20 14:08 ECG 12 lead EKG Routine 06/11/20 14:13 Type and Screen Routine Basic Metabolic Panel Routine Complete Blood Count Auto Diff Routine 06/18/20 05:28 Providone-Iodine Solution 5% nasal swab .Both Nares x2 pre-op Surgical prep, hair removal PREOP 06/18/20 05:29 Acetaminophen [Ofirmev] 1,000 mg in 100 ml IV PREOP oxyCODONE HCl ER [OxyCONTIN] 10 mg PO PREOP ONE vancomycin HCL 1,500 mg 0.9 % Sodium Chloride [Ns] 250 ml IV PREOP 06/18/20 05:30 Lactated Ringers [Lr] 1,000 ml IVCONT 100 mls/hr 06/18/20 05:38 SARS COV2 PCR INHOUSE Routine 06/18/20 Breakfast NPO Diet 07/03/20 10:50 Type and Screen Routine 07/09/20 06:11 Acetaminophen [Ofirmev] 1,000 mg in 100 ml IV PREOP Gabapentin [Neurontin] 600 mg PO PREOP ONE oxyCODONE HCl ER [OxyCONTIN] 10 mg PO PREOP ONE 07/09/20 06:11 Providone-Iodine Solution 5% nasal swab .Both Nares x2 pre-op Surgical prep, hair removal PREOP 07/09/20 06:15 Lactated Ringers [Lr] 1,000 ml IVCONT 100 mls/hr 07/09/20 06:17 COVID-19 ID NOW (Garza) Stat 07/09/20 06:49 Gabapentin [Neurontin] 300 mg .ROUTE .STK-MED ONE 07/09/20 06:50 Acetaminophen [Ofirmev] 1,000 mg in 100 ml IV As directed 07/09/20 07:00 vancomycin HCL 2,000 mg 0.9 % Sodium Chloride [Ns] 500 ml IV PREOP 07/09/20 07:23 Lidocaine HCl 2 % MPF [Xylocaine 2 % MPF] 5 ml .ROUTE .STK-MED ONE Rocuronium [place] [Zemuron] 100 mg IV .STK-MED ONE propofoL [Diprivan] 200 mg IVPUSH .STK-MED ONE 07/09/20 07:24 fentaNYL citrate/PF [Sublimaze] 50 mcg .ROUTE .STK-MED ONE 07/09/20 07:40 Midazolam HCl/PF [Versed] 2 mg .ROUTE .STK-MED ONE 07/09/20 09:36 HYDROmorphone HCl [Dilaudid] 2 mg .ROUTE .STK-MED ONE 07/09/20 09:39 Labetalol HCL [Normodyne] 100 mg .ROUTE .STK-MED ONE 07/09/20 09:55 hydrALAZINE HCl [Apresoline] 20 mg .ROUTE .STK-MED ONE 07/09/20 10:39 Surgical [PTH] Routine 07/09/20 10:51 ondansetron HCL [Zofran] 4 mg .ROUTE .STK-MED ONE 07/09/20 10:55 Transfer Order Routine 07/09/20 10:56 Sugammadex Sodium [Bridion] 200 mg IVPUSH .STK-MED ONE 07/09/20 11:06 Continuous pulse oximetry CONT Vital Signs Q1H Vital Signs Q5MIN HYDROmorphone HCl [Dilaudid] 0.25 mg IVPUSH Q5M PRN 07/09/20 11:39 HYDROmorphone HCl [Dilaudid] 0.5 mg .ROUTE .STK-MED ONE 07/09/20 11:53 HYDROmorphone HCl [Dilaudid] 0.5 mg .ROUTE .STK-MED ONE 07/09/20 11:55 HYDROmorphone HCl [Dilaudid] 0.5 mg IVPUSH Q5M PRN 07/09/20 12:02 HYDROmorphone HCl [Dilaudid] 0.5 mg .ROUTE .STK-MED ONE 07/09/20 15:07 Acetaminophen [Tylenol] 650 mg PO Q6H HYDROmorphone HCl [Dilaudid] 0.5 mg IVPUSH Q4H PRN Naloxone HCl [Narcan] 0.2 mg IVPUSH Q2M PRN ondansetron HCL [Zofran] 4 mg IVPUSH Q8H PRN 07/09/20 15:07 Apply ice pack .as needed Incentive Spirometry NOW Reinforce wound dressing NEEDED Straight Urinary Catheterization NEEDED Vital Signs Q4H Occupational Therapy Eval & Treat NEEDED Physical Therapy Eval & Treat NOW 07/09/20 16:00 0.9 % Sodium Chloride Flush [NS Flush] 3 ml IVFLUSH QSHIFT Ketorolac Tromethamine [Toradol] 15 mg IVPUSH Q6H oxyCODONE HCl Immed Release [Roxicodone] 10 mg PO Q6H 07/09/20 19:00 vancomycin HCL 2,000 mg 0.9 % Sodium Chloride [Ns] 500 ml IV POSTOP 07/09/20 19:26 vancomycin HCL 1,000 mg .ROUTE .STK-MED ONE 07/10/20 06:05 Hemoglobin and Hematocrit DAILY@0600 07/10/20 07:00 XR hip RT w PEL1V Routine 07/10/20 07:43 Code Status Routine 07/10/20 22:00 Aspirin 325 mg PO BID Laboratory Last Values WBC 5.5 X10*3/uL (4.8-10.8) 06/11/20 14:13 RBC 4.92 X10*6/uL (4.60-5.80) 06/11/20 14:13 Hgb 10.7 g/dl (14.0-18.0) L D 07/10/20 06:05 Hct 31.3 % (42-52) L D 07/10/20 06:05 MCV 89.2 fL (80-98) 06/11/20 14:13 MCH 30.3 pg (27.0-33.0) 06/11/20 14:13 MCHC 33.9 g/dl (31.0-36.0) 06/11/20 14:13 RDW 12.4 % (11.0-16.0) 06/11/20 14:13 Plt Count 191 X10*3/uL (160-400) 06/11/20 14:13 MPV 9.5 fL (9.4-12.4) 06/11/20 14:13 Immature Gran % (Auto) 0.2 % (0.0-0.4) 06/11/20 14:13 Neut % (Auto) 53.6 % (45-73) 06/11/20 14:13 Lymph % (Auto) 35.8 % (20-40) 06/11/20 14:13 [place] % (Auto) 8.4 % (2-11) 06/11/20 14:13 Eos % (Auto) 1.5 % (0-4) 06/11/20 14:13 Baso % (Auto) 0.5 % (0-2) 06/11/20 14:13 Lymph # (Auto) 2.0 X10*3/uL (1.2-4.9) 06/11/20 14:13 [place] # (Auto) 0.5 X10*3/uL (0.1-1.2) 06/11/20 14:13 Eos # (Auto) 0.1 X10*3/uL (0.0-0.4) 06/11/20 14:13 Baso # (Auto) 0.0 X10*3/uL (0.0-0.2) 06/11/20 14:13 Abs Immat Gran (auto) 0.01 X10*3/uL (0.00-0.03) 06/11/20 14:13 Absolute Neuts (auto) 3.0 X10*3/uL (2.0-8.3) 06/11/20 14:13 Absolute Nucleated RBC 0.000 X10*3/uL (0.0-0.012) 06/11/20 14:13 Nucleated RBC % (auto) 0.0 /100WBC (0.0-0.2) 06/11/20 14:13 Sodium 140 mmol/L (135-145) 06/11/20 14:13 Potassium 4.5 mmol/l (3.3-5.1) 06/11/20 14:13 Chloride 103 mmol/L (96-108) 06/11/20 14:13 Carbon Dioxide 29 mmol/L (22-29) 06/11/20 14:13 Anion Gap 13 (12-20) 06/11/20 14:13 BUN 20 mg/dL (9-16) H 06/11/20 14:13 Creatinine 1.01 mg/dL (0.5-1.4) 06/11/20 14:13 Estim Creat Clear Calc 96.8 06/11/20 14:13 Estimated GFR > 60 06/11/20 14:13 Random Glucose 92 mg/dL (60-115) 06/11/20 14:13 Calcium 8.5 mg/dL (8.4-10.2) 06/11/20 14:13 Nasal Screen MRSA (PCR) POSITIVE (Negative) A 06/11/20 Unknown Nasal S. aureus Screen POSITIVE (Negative) A 06/11/20 Unknown Nasal MRSA/S.aureus Interp SEE NOTE 06/11/20 Unknown Coronavirus (PCR) NEGATIVE (Negative) 06/18/20 05:38 COVID-19 ([facility]) Negative (Negative) 07/09/20 06:17 COVID-19 Clin Com See Note 07/09/20 06:17 Blood Type O Positive 07/03/20 10:50 Antibody Screen NEGATIVE 07/03/20 10:50 Discharge Plan Discharge Patient Disposition: Home Health Service Referrals: [facility] [Outside] - 1 Day (referral to [facility] physical [facility] (they will start tomorrow/if you do not hear from them by 12 noon the day after discharge then please call them at [phone] nicolas coyle please call him for post hospital discharge follow up orthopedic surgeron follow up per discharge instructions transportation famiy ) Penelope Mehta PA-C [Physician [employer]] - (f/u with orthopedics in 2 weeks) Tom Coyle MD [Primary Care Provider] - Discharge Medications: New acetaminophen 325 mg Tablet 650 mg PO Q6H 30 Days Qty: 240 RF: 0 aspirin 325 mg Tablet 325 mg PO BID 30 Days Qty: 60 RF: 0 oxycodone 10 mg tablet 10 mg PO Q6H 7 Days Qty: 28 RF: 0 docusate sodium [Colace] 100 mg capsule 100 mg PO BID 30 Days Qty: 60 RF: 0 Continued fexofenadine 180 mg Tablet 180 mg PO DAILY RF: 0 rosuvastatin 10 mg tablet 1 tab PO BEDTIME RF: 0 rosuvastatin 10 mg tablet 10 mg PO BEDTIME RF: 0 fexofenadine [Jana Allergy] 180 mg tablet 180 mg PO DAILY RF: 0 Held ibuprofen 800 mg Tablet 800 mg PO Q12H PRN (Reason: Pain) RF: 0 Hold Instructions: Resume on 08/15/20. aspirin [Adult Low Dose Aspirin] 81 mg tablet,delayed release (DR/EC) 81 mg PO DAILY RF: 0 Hold Instructions: Resume on 08/15/20. ibuprofen 800 mg tablet 800 mg PO Q8H RF: 0 Hold Instructions: Resume on 08/15/20. Discharge Orders: Discharge Order (Routine); Ordered 07/11/20 Ordered By: Penelope Mehta Diet: regular diet Activity on Discharge: Use cane or walker Discharge Date/Time: 07/11/20 12:50 Activity Restrictions/Additional Instructions: * Physical Therapy for Total hip arthroplasty: no precautions, gait training, ROM, strength * Limit stair climbing * No showering, no tub bath-keep dressing clean, dry and intact * No driving x6 weeks * Continue Aspirin 325mg tabs twice a day x 4 weeks * Follow up with [facility] Orth[facility] in 2 weeks Visit Report Forms: Patient Portal Discharge page Care Plan Goals: Restore function of right hip Health Concerns: None Plan of Treatment: Physical Therapy Pain management DVT prophylaxis
== END 2020-07-11 12:50 | disposition home health service (06) | DRG 324 ==
LOC: HO.SSSA 06:15 → HO.S3 11:16
PROVIDERS: Physician Assistant; Admitting Provider Orthopaedic Surgery; PCP Internal Medicine; Visit Provider Orthopaedic Surgery
PROC: 0SR90JA Replacement of Right Hip Joint with Synthetic Substitute, Uncemented, Open Approach (ICD-10-PCS; CPT 27130; principal; 2020-07-09 07:30)
DX: M16.11 Unilateral primary osteoarthritis, right hip (principal); E78.00 Pure hypercholesterolemia, unspecified; G47.33 Obstructive sleep apnea (adult) (pediatric); Z20.828 Contact with and (suspected) exposure to other viral communicable diseases; Z99.89 Dependence on other enabling machines and devices; Z79.899 Other long term (current) drug therapy
CPT/HCPCS: 36415; 73502; 80048; 85014; 85018; 85025; 86850; 86900; 86901; 87635; 87640; 87641; 88305; 88311; 93005; 97110; 97116; 97162; 97166; 97535; C1776; J0131; J1170; J1885; J2250; J2405; J3010; J3370; U0003

== ENCOUNTER → 2020-07-16 12:56 | Outpatient (BNVA) | payer OTHER, SELFPAY | PROVIDERS: PCP Internal Medicine; Visit Provider Physician Assistant | DX: Z76.89 Persons encountering health services in other specified circumstances (principal) ==

== ENCOUNTER → 2020-07-26 10:15 | Outpatient (BNVA) | payer OTHER, SELFPAY | PROVIDERS: PCP Internal Medicine; Visit Provider Physician Assistant | DX: Z76.89 Persons encountering health services in other specified circumstances (principal) ==

== ENCOUNTER → 2020-08-28 12:22 | Outpatient (BNVA) | payer OTHER, SELFPAY | PROVIDERS: PCP Internal Medicine; Visit Provider Orthopaedic Surgery ==

== ENCOUNTER 2020-08-29 14:49 | Outpatient (REF) | payer SELFPAY ==
[2020-08-30 08:57] LABS: SARS COV2 IgG Negative (Negative)
== END 2020-08-29 14:50 | disposition home or self-care (01) ==
LOC: HO.LNC 14:49
PROVIDERS: Visit Provider Pathology Anatomic Pathology & Clinical Pathology
DX: Z13.89 Encounter for screening for other disorder (principal)
CPT/HCPCS: 36415; 86769

== ENCOUNTER 2020-09-11 08:21 | Outpatient (REF) | payer OTHER, SELFPAY ==
[2020-09-11 11:10] LABS: MANUAL DIFF FLAG NO
[2020-09-11 11:16] LABS: Basophils Percent Auto 0.5 % (0-2); Eosinophils Absolute Auto 0.1 X10*3/uL (0.0-0.4); Eosinophils Percent Auto 2.9 % (0-4); Hematocrit 37.2 % (42-52); Hemoglobin 12.1 g/dl (14.0-18.0); Lymphocytes Absolute Auto 1.3 X10*3/uL (1.2-4.9); Lymphocytes Percent Auto 34.9 % (20-40); Mean Corpuscular HGB Conc 32.5 g/dl (31.0-36.0); Mean Corpuscular Volume 86.1 fL (80-98); Mean Platelet Volume 9.7 fL (9.4-12.4); Monocytes Absolute Auto 0.4 X10*3/uL (0.1-1.2); Monocytes Percent Auto 9.3 % (2-11); Neutrophils Percent Auto 52.4 % (45-73); Platelet Count 202 X10*3/uL (160-400); Red Blood Count 4.32 X10*6/uL (4.60-5.80); Red Cell Distribution Width 12.7 % (11.0-16.0); White Blood Count 3.8 X10*3/uL (4.8-10.8)
[2020-09-11 11:45] LABS: Alanine Aminotransferase 24 U/L (0-40); Alkaline Phosphatase 63 U/L (39-117); Anion Gap 13 (12-20); Aspartate Amino Transferase 24 U/L (5-37); Bilirubin Total 0.4 mg/dL (0.0-1.0); Blood Urea Nitrogen 13 mg/dL (9-16); Calcium 8.4 mg/dL (8.4-10.2); Carbon Dioxide 24 mmol/L (22-29); Chloride 107 mmol/L (96-108); Cholesterol 160 mg/dL; Estimated Glomerular Filt Rate > 60; Glucose Fasting 79 mg/dL (60-99); HDL Cholesterol 47 mg/dL; LDL Cholesterol Calculated 85 mg/dl; Sodium 140 mmol/L (135-145); Total Protein 6.6 g/dL (6.5-8.0); Triglycerides 140 mg/dL
== END 2020-09-11 08:22 | disposition home or self-care (01) ==
LOC: HO.HMGCLDS 08:21
PROVIDERS: PCP Internal Medicine; Visit Provider Internal Medicine
DX: Z00.00 Encounter for general adult medical examination without abnormal findings (principal); E78.5 Hyperlipidemia, unspecified; R53.83 Other fatigue
CPT/HCPCS: 36415; 80053; 80061; 84153; 85025

== ENCOUNTER 2020-10-26 08:51 | Outpatient (REF) | payer OTHER, SELFPAY ==
--- NOTE | ~2020-10-26 | XR_ITS ---
EXAMINATION: XR HIP, RIGHT CLINICAL INFORMATION: M25.551 - Pain in right hip COMPARISON: Radiographs right hip 07/10/2020. TECHNIQUE: AP pelvis x2 views along with AP and frog lateral views of the right hip. There are a total of 4 views. FINDINGS: There is a right hip prosthesis. The hardware is intact. There is no fracture, dislocation, osteolysis, or destructive process. There are degenerative changes in the lower lumbar spine. Incidental whiskering is present at the lateral aspect iliac crests. The SI joints, pubis, and left hip are unremarkable. Bowel gas normal. Surgical clips overlying scrotum. XR/XR hip RT min 2V IMPRESSION: 1. Right hip prosthesis. Harward intact. No osteolysis. 2. Degenerative changes lower lumbar spine.
== END 2020-10-26 08:52 | disposition home or self-care (01) ==
LOC: HO.HOSX 08:51
PROVIDERS: Visit Provider Orthopaedic Surgery
DX: Z47.1 Aftercare following joint replacement surgery (principal); Z96.641 Presence of right artificial hip joint
CPT/HCPCS: 73502

== ENCOUNTER 2021-09-18 09:16 | Outpatient (REF) | payer OTHER, SELFPAY ==
[2021-09-18 11:22] LABS: MANUAL DIFF FLAG NO
[2021-09-18 11:26] LABS: Basophils Percent Auto 0.7 % (0-2); Eosinophils Absolute Auto 0.1 X10*3/uL (0.0-0.4); Eosinophils Percent Auto 1.7 % (0-4); Hematocrit 44.2 % (42.0-52.0); Hemoglobin 14.8 g/dl (14.0-18.0); Imm Gran Abs Auto 0.01 X10*3/uL (0.00-0.03); Imm Gran Pct Auto 0.2 % (0.0-0.4); Lymphocytes Absolute Auto 1.6 X10*3/uL (1.2-4.9); Lymphocytes Percent Auto 38.8 % (20-40); Mean Corpuscular HGB Conc 33.5 g/dl (31.0-36.0); Mean Corpuscular Hemoglobin 29.1 pg (27.0-33.0); Mean Corpuscular Volume 86.8 fL (80.0-98.0); Mean Platelet Volume 9.5 fL (9.4-12.4); Monocytes Absolute Auto 0.4 X10*3/uL (0.1-1.2); Monocytes Percent Auto 10.4 % (2-11); Neutrophils Absolute Auto 1.9 x10*3/uL (2.0-8.3); Neutrophils Percent Auto 48.2 % (45-73); Platelet Count 182 X10*3/uL (160-400); Red Blood Count 5.09 X10*6/uL (4.60-5.80); Red Cell Distribution Width 12.4 % (11.0-16.0)
[2021-09-18 14:05] LABS: Alanine Aminotransferase 32 U/L (0-40); Albumin Level 4.3 g/dL (3.5-5.0); Alkaline Phosphatase 57 U/L (39-117); Anion Gap 10 (12-20); Aspartate Amino Transferase 25 U/L (5-37); Bilirubin Total 0.7 mg/dL (0.0-1.0); Carbon Dioxide 28 mmol/L (22-29); Chloride 104 mmol/L (96-108); Cholesterol 199 mg/dL; Estimated Glomerular Filt Rate > 60; Glucose Fasting 98 mg/dL (60-99); HDL Cholesterol 41 mg/dL; LDL Cholesterol Calculated 129 mg/dl; Potassium 4.1 mmol/L (3.3-5.1); Sodium 138 mmol/L (135-145); Total Protein 7.2 g/dL (6.5-8.0); Triglycerides 149 mg/dL
[2021-09-18 15:06] LABS: Blood Urea Nitrogen 14 mg/dL (9-16); Calcium 9.2 mg/dL (8.4-10.2)
== END 2021-09-18 09:17 | disposition home or self-care (01) ==
LOC: HO.HMGCLDS 09:16
PROVIDERS: PCP Internal Medicine; Visit Provider Internal Medicine
DX: Z00.00 Encounter for general adult medical examination without abnormal findings (principal); Z12.5 Encounter for screening for malignant neoplasm of prostate; I26.99 Other pulmonary embolism without acute cor pulmonale; R53.83 Other fatigue; E78.00 Pure hypercholesterolemia, unspecified
CPT/HCPCS: 36415; 80053; 80061; 84153; 85025

== ENCOUNTER 2021-10-18 09:37 | Outpatient (REF) | payer OTHER, SELFPAY ==
--- NOTE | ~2021-10-18 | XR_ITS ---
EXAMINATION: XR SHOULDER, RIGHT XR SHOULDER, LEFT CLINICAL INFORMATION: Bilateral shoulder pain. COMPARISON: Reports from right shoulder radiographs dated 03/10/2011 and left shoulder MRI dated 10/11/2007. TECHNIQUE: AP, scapular Y, and axillary views of the right and left shoulder. FINDINGS: RIGHT SHOULDER: No acute fracture or dislocation. Mild acromioclavicular and glenohumeral osteoarthritis. Corticated probable unfused osteophyte adjacent to the acromioclavicular joint. No concerning lytic or blastic osseous lesion. LEFT SHOULDER: No acute fracture or dislocation. [id number] acromioclavicular and mild glenohumeral osteoarthritis. No concerning lytic or blastic osseous lesion. No abnormal soft tissue calcification. XR/XR shoulder RT min 2V IMPRESSION: RIGHT SHOULDER: Mild acromioclavicular and glenohumeral osteoarthritis. LEFT SHOULDER: [id number] acromioclavicular and mild glenohumeral osteoarthritis.
--- NOTE | ~2021-10-18 | XR_ITS ---
EXAMINATION: XR SHOULDER, RIGHT XR SHOULDER, LEFT CLINICAL INFORMATION: Bilateral shoulder pain. COMPARISON: Reports from right shoulder radiographs dated 03/10/2011 and left shoulder MRI dated 10/11/2007. TECHNIQUE: AP, scapular Y, and axillary views of the right and left shoulder. FINDINGS: RIGHT SHOULDER: No acute fracture or dislocation. Mild acromioclavicular and glenohumeral osteoarthritis. Corticated probable unfused osteophyte adjacent to the acromioclavicular joint. No concerning lytic or blastic osseous lesion. LEFT SHOULDER: No acute fracture or dislocation. [id number] acromioclavicular and mild glenohumeral osteoarthritis. No concerning lytic or blastic osseous lesion. No abnormal soft tissue calcification. XR/XR shoulder LT min 2V IMPRESSION: RIGHT SHOULDER: Mild acromioclavicular and glenohumeral osteoarthritis. LEFT SHOULDER: [id number] acromioclavicular and mild glenohumeral osteoarthritis.
--- NOTE | ~2021-10-18 | XR_ITS ---
EXAMINATION: XR PELVIS CLINICAL INFORMATION: This is a 61-year-old male who status post right hip replacement. Pain. COMPARISON: Comparison is made to a previous study dated 10/26/2020. TECHNIQUE: AP view of the pelvis. FINDINGS: The patient is status post bipolar right hip prosthesis. No periprosthetic lucency is demonstrated. On the single view of the prosthesis appears to be anatomic. Minimal osteoarthritic changes are noted in the left hip. No fracture or dislocation is seen. There is a possible portal venous with radiopaque density superimposed over the lower abdomen. Clinical correlation is suggested. Degenerative changes are noted in the lower lumbar spine. XR/XR pelvis 1-2V IMPRESSION: 1. The patient is status post right hip prosthesis. 2. Minimal osteophytic changes in the left hip.
== END 2021-10-18 09:38 | disposition home or self-care (01) ==
LOC: HO.HOSX 09:37
PROVIDERS: Visit Provider Orthopaedic Surgery
DX: R29.898 Other symptoms and signs involving the musculoskeletal system (principal); M25.511 Pain in right shoulder; M25.512 Pain in left shoulder; Z96.641 Presence of right artificial hip joint
CPT/HCPCS: 72170; 73030

== ENCOUNTER 2021-12-20 10:22 | Day surgery (SDC) | payer OTHER, SELFPAY ==
[2021-12-16 09:59] VITALS: BMI 42.5
--- NOTE | 2021-12-19 10:17 | P.CONAN_ITS ---
Documented by User: Talisha Perry NP 12/19/21 10:21 HPI - Anesthesia Eval Consult details Narrative: 61yo M for Colonoscopy PMFSH Active Problems Active Problems: All Active Problems (Updated 10/18/21 @ 11:16 by Enoch Gonzalez MD) Shoulder weakness (Acute) Status post total hip replacement, right (Acute) Past Medical History Medical History Arthritis Elevated cholesterol High cholesterol LIANNA on CPAP Osteoarthritis of right hip joint due to dysplasia Seasonal allergies Skin cancer Family History Family History Father No problems noted. Mother No problems noted. Surgical History Surgical History (Updated 12/20/21 @ 11:19 by Tess Cam RN) H/O total hip arthroplasty History of bilateral carpal tunnel release History of total right knee replacement History of total right knee replacement History of vasectomy Hx of colonoscopy Hx of esophagogastroduodenoscopy Hx of nasal septoplasty S/P lumbar microdiscectomy S/P skin cancer resection Status post right knee replacement Social History Social History Are you a primary childcare center administrator to a significant other at home: No Do you presently have visiting nurse or other home services: No Patient Tobacco Use Status: Never used Tobacco Use of substances other than those prescribed or required for medical reasons: No Are you DNR?: No Advance Directives: No Advance Directives Information Provided: Yes Recently lost weight without trying: No service: Yes Current occupational status: employed and retired Meds Allergies Allergy/AdvReac Type Severity Reaction Status Date / Time morphine Allergy Intermediate respiratory Verified 12/16/21 09:58 rate dropped seasonal Allergy Unknown nasal Uncoded 07/03/20 11:20 congestion, affects hearing Home Medications Medication Instructions Recorded Confirmed Last Taken Type rosuvastatin 10 mg tablet 10 mg PO BEDTIME 05/31/20 07/03/20 Unknown History Exam Exam Date and Time: December 19, 2021 1017 Height,Weight and Vital Signs: Height 5 ft 7.5 in Weight 125.191 kg Pertinent Lab Results Pertinent Lab Results: Laboratory Tests 09/18/21 09/18/21 09:23 09:23 WBC 4.0 L Hgb 14.8 Hct 44.2 Plt Count 182 Sodium 138 Potassium 4.1 Chloride 104 Carbon Dioxide 28 BUN 14 Creatinine 0.91 Assessment and Plan Assessment Anesthesia Assessment: Chart Reviewed Documented by User: Jose Layton MD 12/20/21 11:36 [facility] Past Medical History Medical History Arthritis Elevated cholesterol High cholesterol LIANNA on CPAP Osteoarthritis of right hip joint due to dysplasia Seasonal allergies Skin cancer Family History Family History Father No problems noted. Mother No problems noted. Family history of problems with anesthesia: No Surgical History Surgical History (Updated 12/20/21 @ 11:19 by Tess Cam, KEESHA) H/O total hip arthroplasty History of bilateral carpal tunnel release History of total right knee replacement History of total right knee replacement History of vasectomy Hx of colonoscopy Hx of esophagogastroduodenoscopy Hx of nasal septoplasty S/P lumbar microdiscectomy S/P skin cancer resection Status post right knee replacement History of Problems with Anesthesia: No Social History Social History Are you a primary childcare center administrator to a significant other at home: No Do you presently have visiting nurse or other home services: No Patient Tobacco Use Status: Never used Tobacco Use of substances other than those prescribed or required for medical reasons: No Are you DNR?: No Advance Directives: No Advance Directives Information Provided: Yes Recently lost weight without trying: No service: Yes Current occupational status: employed and retired Meds Allergies Allergy/AdvReac Type Severity Reaction Status Date / Time morphine Allergy Intermediate respiratory Verified 12/16/21 09:58 rate dropped seasonal Allergy Unknown nasal Uncoded 07/03/20 11:20 congestion, affects hearing Home Medications Medication Instructions Recorded Confirmed Last Taken Type rosuvastatin 10 mg tablet 10 mg PO BEDTIME 05/31/20 07/03/20 Unknown History Exam Airway Mallampati Class: III TM Dist: >3cm Neck ROM: Full Loose/Missing/Broken Teeth: No Heart: [id number] Lungs: cta b/l Assessment and Plan Assessment Anesthesia Assessment: Anesthesia Plan Discussed Final Anesthetic Review Family History of Problems with Anesthesia: No History of Problems with Anesthesia: No NPO: Yes ASA Class: II Final Preanesthetic Review: No Changes in Pt Med Stat, Meds/Allgs Chart Reviewed, Consent Obtained/Reviewed and Anes Risks/Benef Reviewed Patient Risk: Intermediate Procedure Risk: Intermediate Assessment/Block/Sedation in SS: Assess/Block/Sedation-SS Anesthetic Plan Anesthetic Plan: MAC: and Agree w/ Assess. and Plan Disposition: Standard PACU
[2021-12-20 11:25] VITALS: BP 136/85; PULSE 62; RESP 16; TEMP 36.7; O2SAT 97
[2021-12-20] MEDS: Lactated Ringers 1,000 ML 100 ML IVCONT (11:34)
--- NOTE | 2021-12-20 11:40 | MHC.SHP ---
Pre-Procedural Eval Section A Date of Service: 12/20/21 The patient is an INPATIENT: No Changes since office visit: No Cold of Flu in the past 2 weeks, No New Medical Problems, No Changes in Medication and No Patient answered all questions The History & Physical has been completed within 30 days and I have reviewed it.: Yes Section B Chief Complaint: screening Allergies: Allergies Allergy/AdvReac Type Severity Reaction Status Date / Time morphine Allergy Intermediate respiratory Verified 12/16/21 09:58 rate dropped seasonal Allergy Unknown nasal Uncoded 07/03/20 11:20 congestion, affects hearing Plan I have reviewed the history and physical and performed a pertinent physical examination on my patient. No changes have occurred unless specified.
[2021-12-20 12:15] VITALS: BP 94/52; PULSE 58; RESP 16; TEMP 36.6; O2SAT 98
--- NOTE | 2021-12-20 12:17 | P.BOP_ITS ---
Brief Operative Note Date of Service: 12/20/21 Pre-op diagnosis: screening Post-op diagnosis: same Procedure: colonoscopy Surgeon: Eligio Guillen Anesthesia: MAC Was an Crusher And Binder Operator used for this Procedure?: No Estimated blood loss (mL): 5 Pathology: other Condition: stable Disposition: PACU
[2021-12-20 12:30] VITALS: BP 117/86; PULSE 56; RESP 18; O2SAT 99
[2021-12-20 12:45] VITALS: BP 128/75; PULSE 56; RESP 18; TEMP 36.7; O2SAT 99
--- NOTE | 2021-12-20 23:38 | OP_ITS ---
SURGEON: Eligio Guillen MD INDICATIONS: Colon cancer screening. PREOPERATIVE DIAGNOSIS: POSTOPERATIVE DIAGNOSIS: PROCEDURE PERFORMED: Colonoscopy to the terminal ileum with snare polypectomy and biopsy. ESTIMATED BLOOD LOSS: COMPLICATIONS: ANESTHESIA: ASSISTANTS: SPECIMENS: MEDICATIONS: Monitored anesthesia care. DESCRIPTION OF PROCEDURE: History and physical performed. The risks and benefits of the procedure were explained to the patient. Informed consent was obtained. The patient was placed in left lateral decubitus position. A digital rectal exam was performed and was found to be normal. The Olympus pediatric video colonoscope was introduced into the rectum and advanced to the cecum without difficulty. The cecum was identified by transillumination, palpation, and identification of ileocecal valve. Examination was performed. The scope was removed. He tolerated the procedure well and was taken to recovery in stable condition. FINDINGS: The terminal ileum was examined and appeared normal. Multiple polyps were present, 3 were removed with a snare. All measured 10 mm or less. The 10 mm polyp was in the cecum. Two transverse colon polyps measured less than 10 mm and a final polyp at 20 cm was removed with biopsy forceps, this measured less than 5 mm. The quality of prep was good. Retroflexed examination showed moderate-sized internal hemorrhoids. IMPRESSION: Colon polyps. RECOMMENDATION: Follow up biopsy results. MD HARINI Benoit/SARAH / [id number]
== END 2021-12-20 13:28 | disposition home or self-care (01) ==
PROVIDERS: PCP Internal Medicine; Visit Provider Internal Medicine Gastroenterology
PROC: 0DJD8ZZ Inspection of Lower Intestinal Tract, Via Natural or Artificial Opening Endoscopic (ICD-10-PCS; CPT 45378; principal; 2021-12-20 11:30)
DX: Z12.11 Encounter for screening for malignant neoplasm of colon (principal); Z86.010 Personal history of colon polyps; D12.0 Benign neoplasm of cecum; D12.3 Benign neoplasm of transverse colon; K63.5 Polyp of colon; K64.8 Other hemorrhoids; K21.9 Gastro-esophageal reflux disease without esophagitis; M16.11 Unilateral primary osteoarthritis, right hip; M47.9 Spondylosis, unspecified; G47.33 Obstructive sleep apnea (adult) (pediatric); E78.00 Pure hypercholesterolemia, unspecified; J30.2 Other seasonal allergic rhinitis; Z85.828 Personal history of other malignant neoplasm of skin; Z79.899 Other long term (current) drug therapy; Z99.89 Dependence on other enabling machines and devices; Z88.8 Allergy status to other drugs, medicaments and biological substances; Z96.651 Presence of right artificial knee joint
CPT/HCPCS: 45385; 45380; 88305

== ENCOUNTER 2023-06-12 11:34 | Emergency (ER) | payer OTHER, SELFPAY ==
--- NOTE | ~2023-06-12 | XR_ITS ---
EXAMINATION: XR SHOULDER, RIGHT CLINICAL INFORMATION: Right shoulder pain COMPARISON: 10/18/2021 TECHNIQUE: AP external rotation, Grashey, scapular Y, and axillary views of the right shoulder. FINDINGS: The bones and soft tissues are normal. No fracture. Glenohumeral joint is unremarkable in acromioclavicular joint with spurring but maintained anatomic with normal joint space. No abnormal soft tissue calcifications. XR/XR shoulder RT min 2V IMPRESSION: Degenerative changes in the right AC joint.
[2023-06-12 12:24] VITALS: BP 160/79; PULSE 67; RESP 18; TEMP 36.8; O2SAT 95; BMI 40.7
--- NOTE | 2023-06-12 12:25 | ED_ITS ---
HPI - General Adult General Chief complaint: Extremity Injury, Upper Stated complaint: R SHOULDER INJ Time Seen by Provider: 06/12/23 12:48 Source: patient Mode of arrival: ambulatory Limitations: no limitations History of Present Illness HPI narrative: Patient is a 62-year-old male presenting to the emergency department for evaluation of sudden-onset right shoulder pain 1 hour prior to arrival. He reports wall leaf blowing he attempted to place a backpack over his shoulder and he felt a sudden popping sensation and initiation of the pain. pain is exacerbated with With any movement of the shoulder joint, has point tenderness over the AC joint. denies numbness, tingling, cold sensation to the distal extremity or hand. Full AROM to the digits wrist and elbow. Related Data Home Medications Medication Instructions Recorded Confirmed rosuvastatin 10 mg tablet 10 mg PO BEDTIME 05/31/20 07/03/20 Previous Rx's Medication Instructions Recorded docusate sodium 100 mg capsule 100 mg PO BID 30 days #60 caps 07/11/20 (Colace) oxycodone 5 mg tablet 5 mg PO Q6H PRN pain #10 tabs 06/12/23 Allergies Allergy/AdvReac Type Severity Reaction Status Date / Time morphine Allergy Intermediate respiratory Verified 06/12/23 12:28 rate dropped seasonal Allergy Unknown nasal Uncoded 07/03/20 11:20 congestion, affects hearing Review of Systems Review of Systems: Yes all other systems are reviewed and are negative [facility] Past Medical History Attestation statement: The following information was validated with the patient. Source: old records reviewed Medical History Osteoarthritis of right hip joint due to dysplasia High cholesterol Arthritis Seasonal allergies Skin cancer LIANNA on CPAP Elevated cholesterol Surgical History H/O total hip arthroplasty Status post right knee replacement History of total right knee replacement S/P skin cancer resection History of bilateral carpal tunnel release S/P lumbar microdiscectomy Hx of nasal septoplasty History of vasectomy Hx of colonoscopy History of total right knee replacement Hx of esophagogastroduodenoscopy Family History Family History Father No problems noted. Mother No problems noted. Social History Social History Are you a primary director of career services to a significant other at home: No Do you presently have visiting nurse or other home services: No Patient Tobacco Use Status: Never used Tobacco service: Yes Current occupational status: employed and retired Physical Exam ED Vital Signs: Vital Signs - 24 hr 06/12/23 12:24 06/12/23 12:37 Temperature 98.2 F 98.3 F Pulse Rate 67 68 Respiratory Rate 18 16 Blood Pressure 160/79 H 165/85 H Pulse Oximetry 95 98 Oxygen Delivery Method Room Air Room Air BMI result Body Mass Index 40.7 Appearance: Alert.?Oriented to person, place and time. No acute distress.?Normal affect. Neck: Normal inspection.? Neck supple.?? CVS: Heart sounds normal. Normal heart rate and rhythm.? Pulses normal.?? Respiratory: No respiratory distress.? Lung sounds clear to auscultation bilaterally?? Skin: Skin warm and dry.? Normal skin color.? Extremities: No upper extremity edema, obvious deformity, 2+ radial pulse bilaterally. No erythema warmth. Has point tenderness over the right AC joint. No obvious deformity. Neuro: Moves all extremities spontaneously. Sensation intact bilaterally. Ambulates with normal steady gait. Course Course Course Narrative: This is a rapid medical exam: Additional HPI, ROS, PE not included below will be deferred to primary provider. Patient is a 62-year-old male presenting to the emergency department with complaint of right shoulder pain which began 1 hour ago. Reports he was leaf-blowing his yard and went to throw the backpack over his shoulder when he felt a pop sensation and pain. Reports has been unable to lift his right arm since. Denies any numbness or tingling, full ROM to fingers of right hand. Did not take any OTC medications prior to arrival. Plan: x-ray, medicate with Tylenol/ibuprofen Medications Administered Discontinued Medications Generic Name Dose Route Start Last Admin Trade Name Luis Eq PRN Reason Stop Dose Admin Acetaminophen 975 mg 06/12/23 12:27 06/12/23 12:30 Acetaminophen 325 Mg Tablet PO 06/12/23 12:28 975 mg ONCE ONE Administration Ibuprofen 600 mg 06/12/23 12:27 06/12/23 12:30 Ibuprofen 600 Mg Tablet PO 06/12/23 12:28 600 mg ONCE ONE Administration Oxycodone HCl 5 mg 06/12/23 13:53 06/12/23 14:13 Oxycodone Hcl Immed Release 5 Mg Tablet PO 06/12/23 13:54 5 mg ONCE ONE Administration Medical Decision Making Medical Decision Making MDM Narrative: Patient is a 62-year-old male who presents emergency department for evaluation of right shoulder pain after injury prior to arrival. No obvious deformity upon examination, has point tenderness over the AC joint, the extremity is neurovascularly intact distally. XR imaging was obtained which reveals no acut e fracture dislocation, There are degenerative changes to the AC joint. medicated with oxycodone while in the emergency department with some improvement. advised outpatient follow-up with primary care provider /Orthopedics. Reviewed worrisome signs and symptoms that would warrant re- evaluation emergency department. All questions answered. Differential Diagnosis Differential Diagnoses: The differential diagnosis associated with the presentation includes ( see narrative above for further detail) Independent Interpretation I performed an independent interpretation of an: Plain X-Ray ( I personally interpreted XR imaging and agree with radiologist impression, no evidence of acu te fracture or dislocation.) Radiology Impression Discussion of test interpretation with radiology: I have reviewed the radiologist's reading. Radiologist Impression: XR/XR shoulder RT min 2V IMPRESSION: Degenerative changes in the right AC joint. External Record Review External record reviewed: Outpatient record and Other ([facility]) Prescription Management I considered prescription management with: Pain Medication Discharge Plan Discharge Clinical Impression: Acromioclavicular joint arthritis Qualifiers: Laterality: right Qualified Code(s): M19.011 - Primary osteoarthritis, right shoulder Patient Disposition: Home, Self-Care Additional Instructions: a prescription for oxycodone was sent to your pharmacy this is for severe pain unrelieved by acetaminophen. This is a narcotic medication, can be addictive, it can make you drowsy. He should not drive, drink alcohol, or work while taking this medication. Please contact Orthopedics to arrange for a follow-up visit, in addition to follow-up with your primary care provider for persistent symptoms. He can return back to emergency department any new or worsening symptoms or concerns. Prescriptions: New oxycodone 5 mg tablet 5 mg PO Q6H PRN (Reason: pain) Qty: 10 0RF Rx Instructions: Partial Fill upon patient request. No Action docusate sodium [Colace] 100 mg capsule 100 mg PO BID 30 Days Qty: 60 0RF rosuvastatin 10 mg tablet 10 mg PO BEDTIME
[2023-06-12] MEDS: Acetaminophen 325 MG TABLET 975 MG PO (12:30)
[2023-06-12] MEDS: Ibuprofen 600 MG TABLET PO (12:30)
[2023-06-12 12:37] VITALS: BP 165/85; PULSE 68; RESP 16; TEMP 36.8; O2SAT 98
--- NOTE | 2023-06-12 12:40 | PC.NURSE ---
vss and up to date. pt to xray at this time.
[2023-06-12] MEDS: oxyCODONE HCl Immed Release 5 MG TABLET PO (14:13)
--- NOTE | 2023-06-12 14:14 | PC.NURSE ---
medication administered per provider order.
== END 2023-06-12 15:24 | disposition home or self-care (01) ==
PROVIDERS: Emergency Provider Emergency Medicine; PCP Internal Medicine
DX: M19.011 Primary osteoarthritis, right shoulder (principal); M25.511 Pain in right shoulder; Z79.899 Other long term (current) drug therapy
CPT/HCPCS: 73030; 99283

== ENCOUNTER 2023-06-18 10:01 | Outpatient (AMB) | payer OTHER, SELFPAY ==
--- NOTE | 2023-06-18 10:07 | A.OFFVIS_ITS ---
Intake Intake Visit Reasons: New Prob- right shoulder injury 06/12/23 Intake Note: Aquilino is a 62 year old right hand dominant male who presents today as a new patient with complaints of right shoulder pain. Patient reports that on 06/12/23 while doing yardwork he went to put on a leaf blowing backpack when he felt a pop in the right shoulder with immediate onset of pain. He was given a temporary script for Oxycodone. Patient reports that he is having continued constatn pain. Denies numbness and tingling. He is taking ibuprofen and tylenol with mild relief. ALso utilized ice application with temporary releif. He was given a sling but he is very uncomfotable in this and finds no releif with immobilization. 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 He says while leaf blowing on 06/12/23, he attempted to put a backpack over his shoulder and felt a painful popping sensation. He was seen in the ED and given a sling & a prescription for Oxycodone. He complains today of pain with any use of his shoulder. He finds mild relief from Tylenol, NSAIDs, or icing. He has not been using his sling, he found it uncomfortable and that it did not help his pain. 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 [facility] Medical History Osteoarthritis of right hip joint due to dysplasia High cholesterol Arthritis Seasonal allergies Skin cancer LIANNA on CPAP Elevated cholesterol Surgical History H/O total hip arthroplasty Status post right knee replacement History of total right knee replacement S/P skin cancer resection History of bilateral carpal tunnel release S/P lumbar microdiscectomy Hx of nasal septoplasty History of vasectomy Hx of colonoscopy History of total right knee replacement Hx of esophagogastroduodenoscopy Family History Father No problems noted. Mother No problems noted. 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 Review of Systems Const All systems reviewed & are unremarkable except as noted in HPI and below Physical Exam Const General: no acute distress, alert and awake Orientation/consciousness: patient oriented x3 HEENT Head: Yes normocephalic and Yes atraumatic Eyes EOM: EOMs intact bilaterally Resp Effort & Inspection: normal respiratory effort and able to speak in complete sentences Cardio Jugular venous distension: no JVD Skin General skin exam: turgor normal Rashes: no rashes Neuro General: patient oriented x3 Extrem Other: Right Shoulder: + drop arm 4/5 EC TTP bicipital groove passive ROM: 45/90/120/S1 Psych Appearance: grossly normal Affect: normal affect Attitude: cooperative Results Reviewed Results Reviewed: I personally reviewed relevant radiographs Degenerative changes in the right AC joint. Assessment & Plan Assessment & Plan (1) Internal derangement of right shoulder: Code(s): M24.811 - Other specific joint derangements of right shoulder, not elsewhere classified Plan This is a 62 year old man with right shoulder and S/P injury on 06/12/23. He has pain with daily activity, and only mild relief from OTC medication or ice. 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 His exam and history is concerning for internal derangement. An MRI was ordered. Orders: Orders MR shoulder RT wo con 06/18/23 M24.811 - Other specific joint derangements of right shoulder, not elsewhere classified Coding Level of Care Code Est Pt Level 4 (56584) Diagnoses Internal derangement of right shoulder M24.811
== END 2023-06-18 10:50 | disposition home or self-care (01) ==
PROVIDERS: PCP Internal Medicine; Visit Provider Orthopaedic Surgery
DX: M24.811 Other specific joint derangements of right shoulder, not elsewhere classified (principal)
CPT/HCPCS: 99214

== ENCOUNTER → 2023-06-18 10:01 | Outpatient (BNVA) | payer OTHER, SELFPAY | PROVIDERS: PCP Internal Medicine; Visit Provider Orthopaedic Surgery ==

== ENCOUNTER 2023-06-26 12:13 | Outpatient (AMB) | payer OTHER, SELFPAY ==
[2023-06-26 12:28] VITALS: BMI 40.7
--- NOTE | 2023-06-26 12:28 | A.OFFVIS_ITS ---
Intake Vital Signs 06/26/23 12:28 Height 5 ft 7 in Weight 260 lb BMI 40.7 Intake Visit Reasons: OV-Review MRI RT shoulder Intake Note: Aquilino is a 62 year old right hand dominant male who presents today for an MRI review of the right shoulder. Allergies morphine Allergy (Intermediate, Verified 06/12/23 12:28) respiratory rate dropped seasonal Allergy (Unknown, Uncoded 07/03/20 11:20) nasal congestion, affects hearing HPI OV-Review MRI RT shoulder HPI Details Aquilino is a 62 year old man who presents for an MRI review of his right shoulder. He complains today of pain with any use of his shoulder, overhead activity and at night are more painful. He says he only sleeps for ~2 hours at a time at night before the pain wakes him up. He finds mild relief from Tylenol, NSAIDs, or icing. He says he tripped and fell yesterday, catching himself with his right arm. This made his pain worse. 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 [facility] Medical History Osteoarthritis of right hip joint due to dysplasia High cholesterol Arthritis Seasonal allergies Skin cancer LIANNA on CPAP Elevated cholesterol Surgical History H/O total hip arthroplasty Status post right knee replacement History of total right knee replacement S/P skin cancer resection History of bilateral carpal tunnel release S/P lumbar microdiscectomy Hx of nasal septoplasty History of vasectomy Hx of colonoscopy History of total right knee replacement Hx of esophagogastroduodenoscopy Family History Father No problems noted. Mother No problems noted. 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 Review of Systems Const All systems reviewed & are unremarkable except as noted in HPI and below Physical Exam Vital Signs: BMI result Body Mass Index 40.7 Const General: no acute distress, alert and awake Orientation/consciousness: patient oriented x3 HEENT Head: Yes normocephalic and Yes atraumatic Eyes EOM: EOMs intact bilaterally Resp Effort & Inspection: normal respiratory effort and able to speak in complete sentences Cardio Jugular venous distension: no JVD Skin General skin exam: turgor normal Rashes: no rashes Neuro General: patient oriented x3 Extrem Other: 40deg ER Passive ROM is full but active abduction to 70 and 4-/5 with empty can testing Psych Appearance: grossly normal Affect: normal affect Attitude: cooperative Results Reviewed Results Reviewed: I personally reviewed relevant MR images 1. Moderate central cuff tendinopathy with full-thickness tear anterior and supraspinatus tendon. 2. Moderate to advanced AC degenerative change 3. Subscapularis tendinopathy with intrasubstance degeneration 4. Mild fraying and irregularity mid posterior labrum Assessment & Plan Assessment & Plan (1) Internal derangement of right shoulder: Code(s): M24.811 - Other specific joint derangements of right shoulder, not elsewhere classified Plan: This is a 62 year old man with a right full-thickness supraspinatus tendon tear, in a setting of moderate-severe ACJ OA, S/P injury on 06/12/23. He has pain with daily activity, and only mild relief from OTC medication or ice. 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 I discussed his diagnosis and treatment options. I recommend a right shoulder RTC repair. I discussed the risks, benefits, and alternatives including, but not limited to, the risk of pain, infection, stiffness, need for further surgery as well as potential medical complications such as blood clots, pulmonary embolism and cardiac complications. I discussed the recovery timeline and process as well as the importance of PT. Aquilino is a good candidate for this surgery, and he wishes to proceed with this decision. He will speak with Denise to schedule this procedure. Plan Scribed for Enoch Gonzalez MD by Marv Rabago, medical clinic manager, on 06/26/23 at 12:45 PM, EST. Coding Level of Care Code Est Pt Level 4 (77088) Diagnoses Internal derangement of right shoulder M24.811
== END 2023-06-26 13:16 | disposition home or self-care (01) ==
PROVIDERS: PCP Internal Medicine; Visit Provider Orthopaedic Surgery
DX: M24.811 Other specific joint derangements of right shoulder, not elsewhere classified (principal)
CPT/HCPCS: 99214

== ENCOUNTER → 2023-06-26 12:13 | Outpatient (BNVA) | payer OTHER, SELFPAY | PROVIDERS: PCP Internal Medicine; Visit Provider Orthopaedic Surgery ==

== ENCOUNTER 2023-06-30 08:51 | Day surgery (SDC) | payer OTHER, SELFPAY ==
--- NOTE | 2023-06-29 09:35 | HO.ANESPROP2 ---
Documented by User: Talisha Perry NP 06/29/23 09:36 HPI - Anesthesia Eval Consult details Narrative: 62yo M for Right Arthroscopic Rotator Cuff Repair PMFSH Active Problems Active Problems: All Active Problems (Updated 06/18/23 @ 10:29 by Enoch Gonzalez MD) Internal derangement of right shoulder (Acute) Shoulder weakness (Acute) Status post total hip replacement, right (Acute) Past Medical History Medical History 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 Mother No problems noted. Family history of problems with anesthesia: No Surgical History Surgical History H/O total hip arthroplasty Status post right knee replacement History of total right knee replacement S/P skin cancer resection History of bilateral carpal tunnel release S/P lumbar microdiscectomy Hx of nasal septoplasty History of vasectomy Hx of colonoscopy History of total right knee replacement Hx of esophagogastroduodenoscopy History of Problems with Anesthesia: No Social History Social History Are you a primary director medicare sales to a significant other at home: No Do you presently have visiting nurse or other home services: No Patient Tobacco Use Status: Never used Tobacco service: Yes Current occupational status: employed and retired 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 Meds Allergies Allergy/AdvReac Type Severity Reaction Status Date / Time morphine Allergy Intermediate respiratory Verified 06/12/23 12:28 rate dropped seasonal Allergy Unknown nasal Uncoded 07/03/20 11:20 congestion, affects hearing Home Medications Medication Instructions Recorded Confirmed Last Taken Type rosuvastatin 10 mg tablet 10 mg PO BEDTIME 05/31/20 07/03/20 Unknown History Assessment and Plan Assessment Anesthesia Assessment: Chart Reviewed Final Anesthetic Review Family History of Problems with Anesthesia: No History of Problems with Anesthesia: No Documented by User: Addison García MD 06/30/23 08:35 [facility] Past Medical History Medical History 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 Mother No problems noted. Surgical History Surgical History H/O total hip arthroplasty Status post right knee replacement History of total right knee replacement S/P skin cancer resection History of bilateral carpal tunnel release S/P lumbar microdiscectomy Hx of nasal septoplasty History of vasectomy Hx of colonoscopy History of total right knee replacement Hx of esophagogastroduodenoscopy Social History Social History Are you a primary director medicare sales to a significant other at home: No Do you presently have visiting nurse or other home services: No Patient Tobacco Use Status: Never used Tobacco service: Yes Current occupational status: employed and retired 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 Meds Allergies Allergy/AdvReac Type Severity Reaction Status Date / Time morphine Allergy Intermediate respiratory Verified 06/12/23 12:28 rate dropped seasonal Allergy Unknown nasal Uncoded 07/03/20 11:20 congestion, affects hearing Home Medications Medication Instructions Recorded Confirmed Last Taken Type rosuvastatin 10 mg tablet 10 mg PO BEDTIME 05/31/20 07/03/20 Unknown History Exam Airway Mallampati Class: II TM Dist: >3cm Neck ROM: Limited Heart: rrr Lungs: cta Assessment and Plan Assessment Anesthesia Assessment: Anesthesia Plan Discussed Final Anesthetic Review NPO: Yes ASA Class: III Final Preanesthetic Review: No Changes in Pt Med Stat, Meds/Allgs Chart Reviewed, Consent Obtained/Reviewed and Anes Risks/Benef Reviewed Patient Risk: Intermediate Procedure Risk: Intermediate Anesthetic Plan Anesthetic Plan: GA and Neuraxial Block: Disposition: Standard PACU
[2023-06-30 09:02] VITALS: BMI 42.6
[2023-06-30 09:15] VITALS: BP 159/89; PULSE 69; RESP 16; TEMP 36; O2SAT 95
--- NOTE | 2023-06-30 09:35 | MHC.SHP ---
Pre-Procedural Eval Section A Date of Service: 06/30/23 The patient is an INPATIENT: No Changes since office visit: No Cold of Flu in the past 2 weeks, No New Medical Problems, No Changes in Medication and No Patient answered all questions The History & Physical has been completed within 30 days and I have reviewed it.: Yes Section B Chief Complaint: Other specific joint derangements of right shoulde Allergies: Allergies Allergy/AdvReac Type Severity Reaction Status Date / Time morphine Allergy Intermediate respiratory Verified 06/12/23 12:28 rate dropped seasonal Allergy Unknown nasal Uncoded 07/03/20 11:20 congestion, affects hearing Plan I have reviewed the history and physical and performed a pertinent physical examination on my patient. No changes have occurred unless specified. Time Spent With Patient Time: Total time managing care of this patient today ____ minutes.
[2023-06-30] MEDS: Lactated Ringers 1,000 ML 100 ML IVCONT (09:42)
--- NOTE | 2023-06-30 13:41 | PM.OP ---
Brief Operative Note Date of Service: 06/30/23 Pre-op diagnosis: Right rtc tear Post-op diagnosis: same Procedure: Right rtc repair Implants: Feliz and Nephew medial row double loaded x 3 Feliz [employer] Nephew knotless lateral row 5.5 x 2 Surgeon: Enoch Gonzalez MD Anesthesia: GETA and regional Was an Small Business Consultant used for this Procedure?: Yes Small Business Consultant: Penelope Mehta Estimated blood loss (mL): 20 IV fluids (mL): 1,000 Pathology: none sent Condition: stable Disposition: PACU
[2023-06-30 14:03] VITALS: BP 108/56; PULSE 69; RESP 17; TEMP 36.3; O2SAT 95
[2023-06-30 14:05] VITALS: BP 109/65; PULSE 64; RESP 16; O2SAT 96
[2023-06-30 14:10] VITALS: BP 115/60; PULSE 60; RESP 17; O2SAT 95
[2023-06-30 14:20] VITALS: BP 138/72; PULSE 61; RESP 17; O2SAT 95
[2023-06-30 14:35] VITALS: BP 130/76; PULSE 58; RESP 16; TEMP 36.7; O2SAT 98
--- NOTE | 2023-07-10 16:20 | W.PM.OPN ---
Operative Note Operative Note Date of Service: 07/30/23 Narrative: Brief Operative Note Date of Service: 06/30/23 Pre-op diagnosis: Right rtc tear Post-op diagnosis: same Procedure: Right rtc repair Implants: Feliz and Nephew medial row double loaded x 3 Feliz [employer] Nephew knotless lateral row 5.5 x 2 Surgeon: Enoch Gonzalez MD Anesthesia: GETA and regional Was an Zone Maintenance Technician used for this Procedure?: Yes Zone Maintenance Technician: Penelope Mehta Estimated blood loss (mL): 20 IV fluids (mL): 1,000 Pathology: none sent Condition: stable Disposition: PACU Procedure in detail: Patient was brought to the operating room and placed the the beach chair position. All bony prominences were well padded and the limb was prepped and draped in standard sterile fashion. A time out was called to identify proper site, proper procedure and proper surgeon. IV antibiotics per weight were administered. I began by making a posterolateral stab incision with a 15 blade. A blunt trochar was placed into the glenohumeral joint and I insufflated the joint with saline and a 30 degree arthroscope was placed. I established an outside- in anterior portal just distal to the biceps tendon. I then began my inspection of the glenohumeral joint. There was a small Type 1 SLAP tear at the biceps anchor. There were minimal cartilage changes at the inferior glenoid without humeral head changes. There was a full thickness undersurface RTC tear. The subcapularis was intact. I debrided the loose cartilage of the glenoid and the degenerative labral tearing. I then removed the trochar and entered the subacromial space. A direct lateral portal was then established and I performed a bursectomy. The cuff was then examined. There was a full thickness tear of the supra and infraspinatus with mild retraction. The tear was mobile. I placed two medial row double loaded anchors after using a tap just adjacent to the articular cartilage and then brought the suture limbs ( 8) through the medial cuff. I then debrided the bare area down to bleeding bone and, using a cross bridge configuration, brought 4 limbs to each of two lateral 5.0 anchors. This re-approximated the cuff anatomy anatomically. I performed and anterior decompression with a nikole. Once I was satisfied with the repair final images were captured and I removed all instrumentation. Portals were closed with nylon. Patient was placed in an abduction sling, extubated and brought to the recovery room in stable condition. There were no known complications.
== END 2023-06-30 15:49 | disposition home or self-care (01) ==
PROVIDERS: PCP Internal Medicine; Visit Provider Orthopaedic Surgery
PROC: (CPT 29827; principal; 2023-06-30 11:00)
DX: M24.811 Other specific joint derangements of right shoulder, not elsewhere classified (principal); E78.00 Pure hypercholesterolemia, unspecified; G47.33 Obstructive sleep apnea (adult) (pediatric); Z99.89 Dependence on other enabling machines and devices; E66.9 Obesity, unspecified; Z68.41 Body mass index [BMI] 40.0-44.9, adult
CPT/HCPCS: 29827; C1713; J0171; J0665; J0690; J1100; J1885; J2371; J2405; J2704

== ENCOUNTER → 2023-06-30 08:51 | Outpatient (BNV) | payer OTHER, SELFPAY | PROVIDERS: PCP Internal Medicine; Visit Provider Orthopaedic Surgery | DX: S43.431A Superior glenoid labrum lesion of right shoulder, initial encounter (principal) | CPT/HCPCS: 29827 ==

== ENCOUNTER 2023-07-06 15:14 | Outpatient (AMB) | payer OTHER, SELFPAY ==
--- NOTE | 2023-07-06 15:20 | A.OFFVIS_ITS ---
Intake Intake Visit Reasons: PO Rt RTC Repair 06/30/23 NE Intake Note: Aquilino a 62 year old male presents today for a post operative right RTC repair, DOS 06/30/23 NE. Patient reports he is doing well, states currently he has little to no pain. His pain increases with moving of his arm such as hanging his arm or removing sling for hygiene purposes. Allergies morphine Allergy (Intermediate, Verified 07/06/23 15:22) respiratory rate dropped seasonal Allergy (Unknown, Uncoded 07/06/23 15:22) nasal congestion, affects hearing HPI PO Rt RTC Repair 06/30/23 NE HPI Details 62-year-old male who returns to the [facility] today for post-op right RTC repair, 06/30/[address] Gonzalez. He states he has minimal pain in his shoulder which is aggravated with moving his arm such as hanging his arm or removing the sling for hygiene purposes. He is doing well overall and has no concerns today. FORMERLY [facility] Medical History Osteoarthritis of right hip joint due to dysplasia High cholesterol Arthritis Seasonal allergies Skin cancer LIANNA on CPAP Elevated cholesterol Surgical History H/O total hip arthroplasty Status post right knee replacement History of total right knee replacement S/P skin cancer resection History of bilateral carpal tunnel release S/P lumbar microdiscectomy Hx of nasal septoplasty History of vasectomy Hx of colonoscopy History of total right knee replacement Hx of esophagogastroduodenoscopy Family History Father No problems noted. Mother No problems noted. 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 No erythema or drainage. NVI. Assessment & Plan Assessment & Plan (1) S/P right rotator cuff repair: Code(s): Z98.890 - Other specified postprocedural states Plan Sutures removed today, steri strips applied. He will continue wearing the sling for another 4 weeks. He will begin physical therapy on July 08 to work on ROM and periscapular stabilization. He will see us back in 4 weeks, sooner if needed. Patient Instructions: Scribed for Penelope Mehta PA-C, by Rob Evangelista medical operations supervisor, on 07/06/2023 at 3:30 PM EST. I, Penelope Mehta PA-C, have personally reviewed and agree with the information entered by the scribe. Coding Level of Care Code Global (55223) Diagnoses S/P right rotator cuff repair Z98.890
== END 2023-07-06 15:50 | disposition home or self-care (01) ==
PROVIDERS: PCP Internal Medicine; Visit Provider Physician Assistant
DX: Z98.890 Other specified postprocedural states (principal)
CPT/HCPCS: 99024

== ENCOUNTER → 2023-07-06 15:14 | Outpatient (BNVA) | payer OTHER, SELFPAY | PROVIDERS: PCP Internal Medicine; Visit Provider Physician Assistant ==

== ENCOUNTER 2023-08-17 08:45 | Outpatient (AMB) | payer OTHER, SELFPAY ==
--- NOTE | 2023-08-17 08:53 | MHC.OFFVIS ---
Intake Intake Visit Reasons: PO Rt RTC Repair 06/30/23 NE Intake Note: Aquilino a 62 year old male presents today for a post operative right RTC repair, DOS 06/30/23 NE. Patient reports he is doing great, no pain or discomfort. Allergies morphine Allergy (Intermediate, Verified 08/17/23 08:53) respiratory rate dropped seasonal Allergy (Unknown, Uncoded 07/06/23 15:22) nasal congestion, affects hearing HPI PO Rt RTC Repair 06/30/23 NE HPI Details 62-year-old male who returns to the office today for post-op right RTC repair, 06/30/[address] Gonzalez. He states he has no pain or discomfort and is doing well overall. He continues to work with physical therapy as instructed. He has no other concerns today. [facility] Medical History Osteoarthritis of right hip joint due to dysplasia High cholesterol Arthritis Seasonal allergies Skin cancer LIANNA on CPAP Elevated cholesterol Surgical History H/O total hip arthroplasty Status post right knee replacement History of total right knee replacement S/P skin cancer resection History of bilateral carpal tunnel release S/P lumbar microdiscectomy Hx of nasal septoplasty History of vasectomy Hx of colonoscopy History of total right knee replacement Hx of esophagogastroduodenoscopy Family History Father No problems noted. Mother No problems noted. 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 Forward flexion to 115 degrees, external rotation to 80 degrees and internal rotation till back pocket. He is able to activate the RTC. NVI. Assessment & Plan Assessment & Plan (1) S/P right rotator cuff repair: Code(s): Z98.890 - Other specified postprocedural states Plan He can begin to discontinue the sling. He will continue working with physical therapy for continued ROM, periscapular stabilization and initiate some gentle non resisted RTC activation. He will remain out of work for the next 6 weeks at which point he will see Dr. Gonzalez for a follow-up, sooner if needed. Patient Instructions: Scribed for Penelope Mehta PA-C, by Rob Evangelista medical dosimetrist, on 08/2023 at 9:00 AM EST. I, Penelope Mehta PA-C, have personally reviewed and agree with the information entered by the scribe. Coding Level of Care Code Global (98287) Diagnoses S/P right rotator cuff repair Z98.890
== END 2023-08-17 09:08 | disposition home or self-care (01) ==
PROVIDERS: PCP Internal Medicine; Visit Provider Physician Assistant
DX: Z98.890 Other specified postprocedural states (principal)
CPT/HCPCS: 99024

== ENCOUNTER → 2023-08-17 08:45 | Outpatient (BNVA) | payer OTHER, SELFPAY | PROVIDERS: PCP Internal Medicine; Visit Provider Physician Assistant ==

== ENCOUNTER 2023-09-19 07:33 | Outpatient (REF) | payer OTHER, SELFPAY ==
[2023-09-19 11:00] LABS: MANUAL DIFF FLAG NO
[2023-09-19 11:04] LABS: Basophils Percent Auto 0.8 % (0-2); Eosinophils Absolute Auto 0.1 X10*3/uL (0.0-0.4); Eosinophils Percent Auto 1.5 % (0-4); Hematocrit 42.8 % (42.0-52.0); Hemoglobin 14.3 g/dl (14.0-18.0); Imm Gran Abs Auto 0.01 X10*3/uL (0.00-0.03); Imm Gran Pct Auto 0.3 % (0.0-0.4); Lymphocytes Absolute Auto 1.5 X10*3/uL (1.2-4.9); Lymphocytes Percent Auto 39.1 % (20-40); Mean Corpuscular HGB Conc 33.4 g/dl (31.0-36.0); Mean Corpuscular Hemoglobin 29.7 pg (27.0-33.0); Mean Corpuscular Volume 88.8 fL (80.0-98.0); Mean Platelet Volume 9.4 fL (9.4-12.4); Monocytes Absolute Auto 0.4 X10*3/uL (0.1-1.2); Neutrophils Absolute Auto 1.9 x10*3/uL (2.0-8.3); Neutrophils Percent Auto 48.3 % (45-73); Platelet Count 176 X10*3/uL (160-400); Red Blood Count 4.82 X10*6/uL (4.60-5.80); Red Cell Distribution Width 12.9 % (11.0-16.0); White Blood Count 3.9 X10*3/uL (4.8-10.8)
[2023-09-19 11:23] LABS: Alanine Aminotransferase 33 U/L (0-40); Albumin Level 4.1 g/dL (3.5-5.0); Alkaline Phosphatase 52 U/L (39-117); Anion Gap 15 (12-20); Aspartate Amino Transferase 25 U/L (5-37); Bilirubin Total 0.5 mg/dL (0.0-1.0); Blood Urea Nitrogen 17 mg/dL (9-16); Calcium 9.3 mg/dL (8.4-10.2); Carbon Dioxide 25 mmol/L (22-29); Chloride 104 mmol/L (96-108); Cholesterol 177 mg/dL (<200); Estimated Glomerular Filt Rate > 60; Glucose Fasting 92 mg/dL (60-99); HDL Cholesterol 43 mg/dL (>40); LDL Cholesterol Calculated 108 mg/dL (<100); Potassium 4.3 mmol/L (3.3-5.1); Sodium 140 mmol/L (135-145); Total Protein 7.2 g/dL (6.5-8.0); Triglycerides 130 mg/dL (<150)
[2023-09-19 11:42] LABS: Prostate Specific Antigen 0.96 ng/mL (<0.05-4.0)
== END 2023-09-19 07:34 | disposition home or self-care (01) ==
LOC: HO.HMGCLDS 07:33
PROVIDERS: PCP Internal Medicine; Visit Provider Internal Medicine
DX: Z00.00 Encounter for general adult medical examination without abnormal findings (principal); Z12.5 Encounter for screening for malignant neoplasm of prostate; R53.83 Other fatigue; E78.5 Hyperlipidemia, unspecified
CPT/HCPCS: 36415; 80053; 80061; 84153; 85025

== ENCOUNTER 2023-10-05 08:17 | Outpatient (AMB) | payer OTHER, SELFPAY ==
--- NOTE | 2023-10-05 08:18 | A.OFFVIS_ITS ---
Intake Intake Visit Reasons: OV- Rt RTC Repair 06/30/23 NE Intake Note: Aquilino a 62 year old right hand dominant male presents today for a post operative right RTC repair, DOS 06/30/23 NE. At his last visit he was given a out of work note for another 6 weeks. Pt states he is feeling well and denies any concerns at this time. Allergies morphine Allergy (Intermediate, Verified 10/05/23 08:24) respiratory rate dropped seasonal Allergy (Unknown, Uncoded 10/05/23 08:24) nasal congestion, affects hearing HPI OV- Rt RTC Repair 06/30/23 NE HPI Details Aquilino is a 63 year old man who presents ~3 months S.P right RTC repair. He says he is doing well, without complaints. He would like to discuss his RTW status. [facility] Medical History Osteoarthritis of right hip joint due to dysplasia High cholesterol Arthritis Seasonal allergies Skin cancer LIANNA on CPAP Elevated cholesterol Surgical History (Updated 10/05/23 @ 08:27 by Priscilla Noriega MA) S/P right rotator cuff repair (06/30/23) H/O total hip arthroplasty Status post right knee replacement History of total right knee replacement S/P skin cancer resection History of bilateral carpal tunnel release S/P lumbar microdiscectomy Hx of nasal septoplasty History of vasectomy Hx of colonoscopy History of total right knee replacement Hx of esophagogastroduodenoscopy Family History Father No problems noted. Mother No problems noted. 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 Review of Systems Const All systems reviewed & are unremarkable except as noted in HPI and below Physical Exam Const General: no acute distress, alert and awake Orientation/consciousness: patient oriented x3 HEENT Head: Yes normocephalic and Yes atraumatic Eyes EOM: EOMs intact bilaterally Resp Effort & Inspection: normal respiratory effort and able to speak in complete sentences Cardio Jugular venous distension: no JVD Skin General skin exam: turgor normal Rashes: no rashes Neuro General: patient oriented x3 Extrem Other: 35/90/135/S1 Portals c/d/i Psych Appearance: grossly normal Affect: normal affect Attitude: cooperative Assessment & Plan Assessment & Plan (1) S/P right rotator cuff repair: Onset Date: 06/30/23 Code(s): Z98.890 - Other specified postprocedural states Plan: Doing very well with no pain. No ROM restrictions. Cautioned to be careful with lifting, pushing,pulling. RTW without restrictions f/u as needed. Plan Prepared for Enoch Gonzalez MD by Marv Rabago, quality engineer medical device, on 10/05/23 at 8:30 AM, EST. Coding Level of Care Code Global (42805) Diagnoses S/P right rotator cuff repair Z98.890
== END 2023-10-05 08:37 | disposition home or self-care (01) ==
PROVIDERS: PCP Internal Medicine; Visit Provider Orthopaedic Surgery
DX: S43.431D Superior glenoid labrum lesion of right shoulder, subsequent encounter (principal)
CPT/HCPCS: 99212

== ENCOUNTER → 2023-10-05 08:17 | Outpatient (BNVA) | payer OTHER, SELFPAY | PROVIDERS: PCP Internal Medicine; Visit Provider Orthopaedic Surgery ==

== ENCOUNTER 2023-10-06 10:00 | Outpatient (RCR) | payer OTHER, SELFPAY ==
--- NOTE | 2023-07-08 10:50 | MHC.PT.EP ---
[facility] [place] Office [place] Office [place] Office [address] [phone] F: [phone] F: [phone] F: [phone] F: [phone] Physical Therapy Plan of Care Date of Evaluation: 07/08/23 Date of Surgery: 06/30/2023 Diagnosis: s/p massive RTC repair (supraspinatus with subacromial decompression) Assessment: Patient is a pleasant 62 y.o. 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 Patient impairments include pain, limited ROM, weakness, impaired skin integrity. Patient current functional limitations are unable to perform any ADLs; bathing, reaching, putting on clothes, toileting. Patient will benefit from skilled PT to address aforementioned impairments and functional limitations to meet established goals. Frequency and Duration: The patient will be seen 2-3x/week for 8 weeks Short Term Goals: 4 weeks Patient demonstrates consistency and independence with HEP to self manage symptoms. Intermediate Goals: 8 weeks Treatment Plan: Modalities to reduce pain, spasms and effusion. Manual therapy to restore motion and function. Therapeutic exercise to improve strength and flexibility. Neuromuscular re-education for posture and balance. Therapeutic activities to return to functional activities of daily living. Electronically signed by: Amy Reza, PT, DPT Please sign and return to therapist. Thank you for your referral.
--- NOTE | 2023-10-06 13:44 | MHC.PT.DC ---
[facility] [place] Office [place] Office [place] Office [address]omen[address] [phone] F: [phone] F: [phone] F: [phone] F: [phone] Physical Therapy Discharge Report Diagnosis: s/p massive RTC repair (supraspinatus with subacromial decompression) Date of Surgery: 06/30/2023 Date of Evaluation: 07/08/23 Date of Discharge: 10/06/23 Treatments to Date: 24 Cancellations to Date: No Shows to Date: Discharge Status: Improved Function Independent with HEP Discharge Summary: Aquilino feels ready for discharge from PT this session as he was cleared by ortho MD to return to work. 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 He does show weakness still into abduction and ER with limited ROM into ER. We discuss continuing with HEP to progress all these areas for ROM, strength and endurance. Electronically signed by: Amy Reza, PT, DPT Please sign and return to therapist. Thank you for your referral.
== END 2023-10-06 13:46 | disposition home or self-care (01) ==
LOC: HO.PT 10:00
PROVIDERS: PCP Internal Medicine; Visit Provider Physician Assistant
DX: Z98.890 Other specified postprocedural states (principal)
CPT/HCPCS: 97014; 97110; 97140; 97161; 97530

== ENCOUNTER 2024-09-12 11:04 | Outpatient (REF) | payer OTHER, SELFPAY ==
--- NOTE | ~2024-09-12 | XR_ITS ---
CLINICAL HISTORY: M25.562 - Pain in left knee AP Bilateral Standing Knees, 2 views left knee Comparison: None Findings: Marginal osteophyte formation is seen about the knee. Mild femorotibial joint space narrowing and severe lateral patellofemoral joint space narrowing is present. No acute fracture or dislocation is identified. Small joint effusion is present. Right knee arthroplasty is present without evidence of hardware failure or loosening. IMPRESSION: 1. Significant degenerative changes in the left knee, most prominent at the lateral patellofemoral compartment. 2. Small joint effusion. 3. Right knee arthroplasty without evidence of hardware failure or loosening. This document has been electronically signed by: Yo Jung on 09/14/2024 09:15:53
== END 2024-09-12 11:05 | disposition home or self-care (01) ==
LOC: HO.HOSX 11:04
PROVIDERS: Visit Provider Orthopaedic Surgery
DX: M25.562 Pain in left knee (principal); M25.561 Pain in right knee; M17.12 Unilateral primary osteoarthritis, left knee
CPT/HCPCS: 20610; 73562; J0665; J1100; J2003

== ENCOUNTER 2024-09-12 11:06 | Outpatient (AMB) | payer OTHER, SELFPAY ==
[2024-09-12 11:13] VITALS: BMI 42.3
--- NOTE | 2024-09-12 11:13 | A.OFFVIS_ITS ---
Vital Signs 09/12/24 11:13 Height 5 ft 7 in Weight 270 lb BMI 42.3 Intake Visit Reasons: New prob- LT knee pain Intake Note: Aquilino is a 64 year old male who presents today for evaluation of left knee pain that began 07/24/24 when he fell down the stairs at his house. Patient states while snow blowing a few weeks back his left knee buckled, causing a shooting pain. Patient reports pain located on the medial aspect of his knee. Patient shares pain is worse when he kneels. He deniesnumbness or tingling. Patient has tried ice, Tylenol, and Motrin with minimal relief. Patient reports left knee swelling radiating to his left ankle for a month now. He is wondering if this is related to his left knee pain. Denies prior injuries or surgeries to the left knee. Allergies morphine Allergy (Intermediate, Verified 10/05/23 08:24) respiratory rate dropped seasonal Allergy (Unknown, Uncoded 10/05/23 08:24) nasal congestion, affects hearing HPI HPI New prob- LT knee pain: Details: Aquilino is a 64 year old male who presents today for evaluation of left knee pain that began 07/24/24 when he fell down the stairs at his house. Patient states while snow blowing a few weeks back his left knee buckled, causing a shooting pain. Patient reports pain located on the medial aspect of his knee. Patient shares pain is worse when he kneels. He deniesnumbness or tingling. Patient has tried ice, Tylenol, and Motrin with minimal relief. Patient reports left knee swelling radiating to his left ankle for a month now. He is wondering if this is related to his left knee pain. Denies prior injuries or surgeries to the left knee. He does state that he has had pain off and on for years in his left knee but this is been more acute and has lasted for a long time. [facility] Medical History (Updated 09/12/24 @ 13:52 by Enoch Gonzalez MD) Osteoarthritis of right hip joint due to dysplasia High cholesterol Arthritis Seasonal allergies Skin cancer LIANNA on CPAP Elevated cholesterol Surgical History (Updated 10/05/23 @ 08:27 by Priscilla Noriega CMA) S/P right rotator cuff repair (06/30/23) H/O total hip arthroplasty Status post right knee replacement History of total right knee replacement S/P skin cancer resection History of bilateral carpal tunnel release S/P lumbar microdiscectomy Hx of nasal septoplasty History of vasectomy Hx of colonoscopy History of total right knee replacement Hx of esophagogastroduodenoscopy Family History Father No problems noted. Mother No problems noted. 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 5- 120 degrees of motion. Office Procedures Joint Inj/Aspir; Non-Pain Clin Joint Injection/Drain Details: Injected 1 mL of Decadron and 3 mL 1% lidocaine and 3 mL of 0.25% Marcaine. Site was prepped using aseptic technique. Patient tolerated the procedure well. Shoulders, Hips, Knees, Knee Large Joint Injection 91012: Left Knee Coding Procedure code (CPT) selection complete Results Reviewed Results Reviewed: I personally reviewed relevant radiographs. Right total knee arthroplasty in expected post operative position with no hardware complications or evidence of loosening Left knee with tricompartmental severe OA Assessment & Plan Assessment & Plan (1) Osteoarthritis of left knee: Code(s): M17.12 - Unilateral primary osteoarthritis, left knee Category: Medical Plan: This is a 64-year-old gentleman with left knee osteoarthritis. It is severe and it has been going on for years although the last 6 weeks he has had persistent swelling. I aspirated 60 cc of normal-appearing joint fluid and injected the steroid cocktail. I will see him back in 3 months' time. Orders: Orders XR knee LT 3V Today M25.562 - Pain in left knee XR knee RT 1V Today M25.569 - Pain in unspecified knee Coding Level of Care Code Est Pt Level 3 (41560) Diagnoses Osteoarthritis of left knee M17.12 CPT Codes Shoulders, Hips, Knees, - Knee Large Joint Injection 21585: Left Knee ([id number])
== END 2024-09-12 12:46 | disposition home or self-care (01) ==
PROVIDERS: PCP Internal Medicine; Visit Provider Orthopaedic Surgery
DX: M17.12 Unilateral primary osteoarthritis, left knee (principal)
CPT/HCPCS: 20610; 99213

== ENCOUNTER → 2024-09-12 11:17 | Outpatient (BNV) | payer OTHER, SELFPAY | PROVIDERS: Visit Provider Radiology Vascular & Interventional Radiology | DX: M25.562 Pain in left knee (principal) | CPT/HCPCS: 73562 ==

== ENCOUNTER 2024-10-01 07:16 | Outpatient (REF) | payer OTHER, SELFPAY ==
[2024-10-01 07:41] LABS: MANUAL DIFF FLAG NO
[2024-10-01 08:08] LABS: Basophils Percent Auto 0.6 % (0-2); Eosinophils Absolute Auto 0.1 X10*3/uL (0.0-0.4); Eosinophils Percent Auto 1.1 % (0-4); Hematocrit 40.4 % (42.0-52.0); Hemoglobin 13.4 g/dl (14.0-18.0); Imm Gran Abs Auto 0.01 X10*3/uL (0.00-0.03); Imm Gran Pct Auto 0.2 % (0.0-0.4); Lymphocytes Absolute Auto 1.6 X10*3/uL (1.2-4.9); Lymphocytes Percent Auto 30.5 % (20-40); Mean Corpuscular HGB Conc 33.2 g/dl (31.0-36.0); Mean Corpuscular Hemoglobin 29.1 pg (27.0-33.0); Mean Corpuscular Volume 87.8 fL (80.0-98.0); Monocytes Absolute Auto 0.5 X10*3/uL (0.1-1.2); Monocytes Percent Auto 8.6 % (2-11); Neutrophils Absolute Auto 3.1 x10*3/uL (2.0-8.3); Platelet Count 178 X10*3/uL (160-400); Red Cell Distribution Width 13.1 % (11.0-16.0); White Blood Count 5.3 X10*3/uL (4.8-10.8)
[2024-10-01 09:11] LABS: Alanine Aminotransferase 39 U/L (0-40); Alkaline Phosphatase 52 U/L (39-117); Anion Gap 12 (12-20); Aspartate Amino Transferase 27 U/L (5-37); Bilirubin Total 0.5 mg/dL (0.0-1.0); Blood Urea Nitrogen 18 mg/dL (9-16); Carbon Dioxide 23 mmol/L (22-29); Chloride 109 mmol/L (96-108); Cholesterol 145 mg/dL (<200); Estimated Glomerular Filt Rate > 60; Glucose Fasting 92 mg/dL (60-99); HDL Cholesterol 40 mg/dL (>40); LDL Cholesterol Calculated 88 mg/dL (<100); Potassium 4.4 mmol/L (3.3-5.1); Sodium 140 mmol/L (135-145); Total Protein 7.3 g/dL (6.5-8.0); Triglycerides 89 mg/dL (<150)
[2024-10-01 09:22] LABS: Prostate Specific Antigen Scr 1.28 ng/mL (<0.05-4.0)
== END 2024-10-01 07:17 | disposition home or self-care (01) ==
LOC: HO.LAB 07:16
PROVIDERS: PCP Internal Medicine; Visit Provider Internal Medicine
DX: Z00.00 Encounter for general adult medical examination without abnormal findings (principal); Z12.5 Encounter for screening for malignant neoplasm of prostate; R53.83 Other fatigue; E78.5 Hyperlipidemia, unspecified
CPT/HCPCS: 36415; 80053; 80061; 84153; 85025

== ENCOUNTER 2024-10-17 14:01 | Emergency (ER) | payer OTHER, SELFPAY ==
[2024-10-17 14:17] VITALS: BP 182/90; PULSE 70; RESP 18; TEMP 36.6; O2SAT 98; BMI 42.0
--- NOTE | 2024-10-17 14:19 | ED.LOWEXIN ---
HPI - Extremity Injury (Lower) General Chief Complaint: Extremity Injury, Lower Stated Complaint: l knee pain Time Seen by Provider: 10/17/24 20:16 Source: patient Limitations: no limitations History of Present Illness ED Provider: Rae Berry PA-C HPI Narrative: 64 yo male here for acute on chronic knee pain that began on 07/24/24. saw [facility] ortho dr. briscoe 3 wks ago, had joint aspiration and cortisone injection. at that time. states he has a knee replacement scheduled in may. worsening pain/swelling to knee. called ortho office, cannot get appointment until 11/07/24. Related Data Home Medications ?Medication ?Instructions ?Recorded ?Confirmed rosuvastatin 10 mg tablet 10 mg PO BEDTIME 05/31/20 07/03/20 losartan 50 mg tablet mg PO DAILY 09/12/24 Previous Rx's ?Medication ?Instructions ?Recorded acetaminophen 325 mg tablet 650 mg (2 x 325 mg) PO Q6H PRN 06/30/23 Pain, Mild (Pain Scale 1-3) 30 days #240 tabs oxycodone 5 mg tablet 5 mg PO Q6H PRN pain, moderate #14 10/17/24 tabs Allergies Allergy/AdvReac Type Severity Reaction Status Date / Time morphine Allergy Intermediate respiratory Verified 10/17/24 14:20 rate dropped seasonal Allergy Unknown nasal Uncoded 10/17/24 14:20 congestion, affects hearing Review of Systems Review of Systems: Yes all other systems are reviewed and are negative Constitutional: Constitutional: Denies fatigue and Denies fever(s) Cardiovascular: Cardiovascular: Denies chest pain and Denies dyspnea Respiratory: Respiratory: Denies dyspnea Musculoskeletal: Musculoskeletal: Reports arthralgias and Reports joint swelling Integumentary/Breasts: Skin/Breast: Denies erythema Endocrine: Endocrine: Denies fatigue [facility] Past Medical History Attestation statement: The following information was validated with the patient. Medical History (Updated 10/18/24 @ 00:00 by Bari Milton) Osteoarthritis of right hip joint due to dysplasia High cholesterol Arthritis Seasonal allergies Skin cancer LIANNA on CPAP Elevated cholesterol Surgical History (Updated 10/05/23 @ 08:27 by Priscilla Noriega CMA) S/P right rotator cuff repair (06/30/23) H/O total hip arthroplasty Status post right knee replacement History of total right knee replacement S/P skin cancer resection History of bilateral carpal tunnel release S/P lumbar microdiscectomy Hx of nasal septoplasty History of vasectomy Hx of colonoscopy History of total right knee replacement Hx of esophagogastroduodenoscopy Family History Family History Father No problems noted. Mother No problems noted. 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 Physical Exam Vital Signs: Vital Signs: Last Vital Signs Temp 97.9 F 10/17/24 23:32 Pulse 71 10/17/24 23:32 Resp 16 10/17/24 23:32 BP 154/88 H 10/17/24 23:32 Pulse Ox 98 10/17/24 23:32 O2 Del Method Room Air 10/17/24 23:32 BMI result Body Mass Index 42.0 Const: Other: Alert Orientation/consciousness: patient oriented x3 Resp: Effort & Inspection: normal respiratory effort Cardio: Other: Normal peripheral perfusion Skin: Other: Warm dry no rash Neuro: Other: Antalgic gait General: patient oriented x3, no focal motor deficits and CN's II-XI intact bilaterally Extrem: Other: The left knee is swollen, most prominent laterally, minimal flexion and extension no overlying warmth or erythema noted Psych: Other: Calm cooperative Course Course Course Narrative: This is a Rapid Medical Examination (RME) performed by Jamie Palmer PA-C in triage. Full HPI, ROS, assessment and treatment plan per primary provider in the Main ED. 64 yo male here for acute on chronic knee pain that began on 07/24/24. saw [facility] ortho dr. briscoe 3 wks ago, had joint aspiration and cortisone injection. at that time. states he has a knee replacement scheduled in may. worsening pain/swelling to knee. called ortho office, cannot get appointment until 11/07/24. +ambulating with limping gait. Plan: labs, xr Medications Administered Discontinued Medications Generic Name Dose Route Start Last Admin Trade Name Freq PRN Reason Stop Dose Admin Lidocaine/Epinephrine 20 ml 10/17/24 21:21 10/17/24 21:58 Lidocaine Hcl 2% Pf/Epi 1:200 20 Ml Vial INFILTRATI 10/17/24 21:22 20 ml ONCE ONE Administration Oxycodone HCl 10 mg 10/17/24 23:16 10/17/24 23:30 Oxycodone Hcl Immed Release 5 Mg Tablet PO 10/17/24 23:17 10 mg ONCE ONE Administration Medical Decision Making Medical Decision Making MDM Narrative: 64 yo male here for acute on chronic knee pain that began on 07/24/24. saw [facility] ortho dr. briscoe 3 wks ago, had joint aspiration and cortisone injection. at that time. states he has a knee replacement scheduled in may. worsening pain/swelling to knee. called ortho office, cannot get appointment until 11/07/24. Problem: Acute on chronic knee pain , significant degenerative changes/arthritis History: Per patient I have considered the following differential diagnoses: Arthritis, septic effusion, gout, fracture, dislocation Plan: Patient was here actively asking for the knee to be tapped to alleviate his discomfort. He refused x-rays. I agree that would be of no value there was no traumatic injury. I have agreed to tap the joint, I told him that we would not be doing a cortisone injection, he can have only so many in a certain time frame, he understands. Given we are going to tap the joint, we will we will send for synovial fluid studies. I have no suspicion for a septic joint, he does have some range of motion, there was no overlying warmth or erythema. Screening labs were obtained. Given we do not have concern for a septic joint, the patient will be discharged after the procedure, he will be contacted if you requires treatment. I have independently reviewed the following tests: Labs: No leukocytosis, not anemic, no electrolyte abnormality Lab Data 10/17/24 15:13 10/17/24 15:13 Labs: Lab Results 10/17/24 10/17/24 Range/Units 15:13 23:30 WBC 5.2 (4.8-10.8) X10*3/uL RBC 4.81 (4.60-5.80) X10*6/uL Hgb 14.4 (14.0-18.0) g/dl Hct 41.8 L (42.0-52.0) % MCV 86.9 (80.0-98.0) fL MCH 29.9 (27.0-33.0) pg MCHC 34.4 (31.0-36.0) g/dl RDW 13.0 (11.0-16.0) % Plt Count 188 (160-400) X10*3/uL MPV 8.9 L (9.4-12.4) fL Immature Gran % (Auto) 0.4 (0.0-0.4) % Neut % (Auto) 62.2 (45-73) % Lymph % (Auto) 25.6 (20-40) % [place] % (Auto) 10.0 (2-11) % Eos % (Auto) 1.2 (0-4) % Baso % (Auto) 0.6 (0-2) % Lymph # (Auto) 1.3 (1.2-4.9) X10*3/uL [place] # (Auto) 0.5 (0.1-1.2) X10*3/uL Eos # (Auto) 0.1 (0.0-0.4) X10*3/uL Baso # (Auto) 0.0 (0.0-0.2) X10*3/uL Abs Immat Gran (auto) 0.02 (0.00-0.03) X10*3/uL Absolute Neuts (auto) 3.2 (2.0-8.3) x10*3/uL Absolute Nucleated RBC 0.000 (0.0-0.012) X10*3/uL Nucleated RBC % (auto) 0.0 (0.0-0.2) /100WBC ESR 18 H (0-15) MM/HR Sodium 141 (135-145) mmol/L Potassium 4.4 (3.3-5.1) mmol/L Chloride 107 (96-108) mmol/L Carbon Dioxide 27 (22-29) mmol/L Anion Gap 11 L (12-20) BUN 16 (9-16) mg/dL Creatinine 0.84 (0.5-1.4) mg/dL Estim Creat Clear Calc 112.4 Estimated GFR > 60 Random Glucose 96 (60-115) mg/dL Uric Acid 4.7 (3.4-7.0) mg/dL Calcium 9.4 (8.4-10.2) mg/dL Total Bilirubin 0.5 (0.0-1.0) mg/dL AST 28 (5-37) U/L ALT 30 (0-40) U/L Alkaline Phosphatase 57 (39-117) U/L C-Reactive Protein 0.17 (< or = 0.50) mg/dL Total Protein 7.9 (6.5-8.0) g/dL Albumin 4.3 (3.5-5.0) g/dL Synovial Source left knee Synovial WBC 0.323 X10*3/uL Synovial RBC 0.011 X10*6/uL Synovial Neutrophils 13 % Synovial Lymphocytes 37 % Synovial Monocytes 40 % Synovial Other Cells 10 Synovial Glucose 92 Synovial Total Protein TNP Synovial Uric Acid TNP Procedures Joint Aspiration/Injection Joint Asp./Inject. 1: Time Out Performed: No Side of body: left Joint Aspirated: knee Ultrasound Guidance: Yes Skin Prep: sterile prep and drape Local Anesthetic: lidocaine 1% Amount of anesthesia used (mL): 10 Needle Size Used: 18G Fluid Obtained: bloody Total fluid obtained (mL): 10 Patient Tolerated Procedure: no complications Complications: none Additional Comments: performed by Vickey العراقي MD Discharge Plan Discharge Clinical Impression: Knee effusion, left Patient Disposition: Home, Self-Care Instructions: Swollen Joint (ED), Joint Aspiration (DC) Additional Instructions: As you know you have significant arthritic changes of the left knee. Some of the synovial fluid was removed, to help ease your discomfort. Take the oxycodone as needed for pain, to note this medication can be constipating, make sure you take a stool softener and/or [id number] MiraLax to help prevent constipation. I would alternate the use of the oxycodone with your 800 mg ibuprofen, taken together with a 1000 mg of Tylenol. The Tylenol and the ibuprofen can be dosed every 8 hours. The oxycodone can be dosed every 6 hours. Continue to follow up with your orthopedic surgeon We sent the joint fluid aspirate for assessment, you will be contacted if there are any acute abnormalities. Prescriptions: New oxycodone 5 mg tablet 5 mg PO Q6H PRN (Reason: pain, moderate) Qty: 14 0RF Rx Instructions: Partial Fill upon patient request. No Action acetaminophen 325 mg tablet 650 mg PO Q6H PRN (Reason: Pain, Mild (Pain Scale 1-3)) 30 Days Qty: 240 0RF rosuvastatin 10 mg tablet 10 mg PO BEDTIME losartan 50 mg tablet PO DAILY Interventions: ED Discharge Assessment Last Done: 10/17/24 23:32 Discharge Date/Time: 10/17/24 23:35 Print Language: Namibian
[2024-10-17 15:18] LABS: MANUAL DIFF FLAG NO
[2024-10-17 15:24] LABS: Basophils Percent Auto 0.6 % (0-2); Eosinophils Absolute Auto 0.1 X10*3/uL (0.0-0.4); Eosinophils Percent Auto 1.2 % (0-4); Hematocrit 41.8 % (42.0-52.0); Hemoglobin 14.4 g/dl (14.0-18.0); Imm Gran Abs Auto 0.02 X10*3/uL (0.00-0.03); Imm Gran Pct Auto 0.4 % (0.0-0.4); Lymphocytes Absolute Auto 1.3 X10*3/uL (1.2-4.9); Lymphocytes Percent Auto 25.6 % (20-40); Mean Corpuscular HGB Conc 34.4 g/dl (31.0-36.0); Mean Corpuscular Hemoglobin 29.9 pg (27.0-33.0); Mean Corpuscular Volume 86.9 fL (80.0-98.0); Mean Platelet Volume 8.9 fL (9.4-12.4); Monocytes Absolute Auto 0.5 X10*3/uL (0.1-1.2); Neutrophils Absolute Auto 3.2 x10*3/uL (2.0-8.3); Neutrophils Percent Auto 62.2 % (45-73); Platelet Count 188 X10*3/uL (160-400); Red Blood Count 4.81 X10*6/uL (4.60-5.80); White Blood Count 5.2 X10*3/uL (4.8-10.8)
[2024-10-17 15:43] LABS: Alanine Aminotransferase 30 U/L (0-40); Albumin Level 4.3 g/dL (3.5-5.0); Anion Gap 11 (12-20); Aspartate Amino Transferase 28 U/L (5-37); Bilirubin Total 0.5 mg/dL (0.0-1.0); Blood Urea Nitrogen 16 mg/dL (9-16); C Reactive Protein 0.17 mg/dL (< or = 0.50); Calcium 9.4 mg/dL (8.4-10.2); Carbon Dioxide 27 mmol/L (22-29); Chloride 107 mmol/L (96-108); Creatinine Clr Calc Pharmacy 112.4; Estimated Glomerular Filt Rate > 60; Glucose Random 96 mg/dL (60-115); Potassium 4.4 mmol/L (3.3-5.1); Sodium 141 mmol/L (135-145); Total Protein 7.9 g/dL (6.5-8.0); Uric Acid 4.7 mg/dL (3.4-7.0)
[2024-10-17 16:08] LABS: Erythrocyte Sedimentation Rate 18 MM/HR (0-15)
[2024-10-17 17:34] LABS: Alkaline Phosphatase 57 U/L (39-117)
[2024-10-17 20:17] VITALS: BP 158/86; PULSE 69; RESP 16; TEMP 36.8; O2SAT 97
[2024-10-17] MEDS: Lidocaine HCl 2% PF/Epi 1:200 20 ML VIAL INFILTRATI (21:58)
[2024-10-17 22:45] VITALS: BP 154/88; PULSE 71; RESP 16; TEMP 36.6; O2SAT 98
[2024-10-17] MEDS: oxyCODONE HCl Immed Release 5 MG TABLET 10 MG PO (23:30)
[2024-10-17 23:32] VITALS: BP 154/88; PULSE 71; RESP 16; TEMP 36.6; O2SAT 98
[2024-10-17 23:40] LABS: Source Synovial Fluid left knee
[2024-10-18 00:02] LABS: RBC Synovial Fluid 0.011 X10*6/uL; WBC Synovial Fluid 0.323 X10*3/uL
[2024-10-18 00:40] LABS: Lymphocytes Synovial Fluid 37 %; Monocytes Synovial Fluid 40 %; Neutrophils Synovial Fluid 13 %; Other Cells Synovial Fluid 10
[2024-10-18 00:41] LABS: BF Shift QC OK YES
[2024-10-18 11:58] LABS: Glucose Synovial Fluid 92
== END 2024-10-17 23:35 | disposition home or self-care (01) ==
PROVIDERS: Physician Assistant Medical; Emergency Provider Emergency Medicine; PCP Internal Medicine
DX: M25.462 Effusion, left knee (principal); M25.562 Pain in left knee; E78.00 Pure hypercholesterolemia, unspecified; Z79.02 Long term (current) use of antithrombotics/antiplatelets; Z79.899 Other long term (current) drug therapy
CPT/HCPCS: 20611; 36415; 80053; 82945; 84157; 84550; 84560; 85025; 85652; 86140; 87070; 87073; 87205; 89051; 89060; 99283; 99284; J2004

== ENCOUNTER 2024-11-07 09:49 | Outpatient (AMB) | payer OTHER, SELFPAY ==
--- NOTE | 2024-11-07 10:01 | A.OFFVIS_ITS ---
Intake Visit Reasons: OV- LT knee pain, last inj 09/12/24 Intake Note: Aquilino is a 64 year old male who presents today for a follow up of his left knee OA. He was last seen on 09/12/24 where he reported an onset of pain 07/24/24 when he fell down the stairs at his house. At this visit the knee was aspirated and injected. He was seen at [facility] ED on 10/17/24 with complaints of increasing pain and swelling. He is accompanied by his Carol. He reports his knee was drained in the ED. He went to the ED because his leg locked up. He has done, ice, elevation, compression, and tylenol to help with the pain. He reports it is swollen and he falls at times. [employer] Impaired Required: No Allergies morphine Allergy (Intermediate, Verified 11/07/24 10:05) respiratory rate dropped seasonal Allergy (Unknown, Uncoded 11/07/24 10:05) nasal congestion, affects hearing Medication List - Last Reconciled 11/07/24 by Paulina Laboy RN acetaminophen 650 mg (2 x 325 mg) PO Q6H PRN 30 days losartan mg PO DAILY oxycodone 5 mg PO Q6H PRN rosuvastatin 10 mg PO BEDTIME HPI HPI OV- LT knee pain, last inj 09/12/24: Details: Aquilino is a 64-year-old gentleman with left knee osteoarthritis. He has had worsening swelling and pain. He went to the ED and frustrated because there was a long wait and he had an aspiration which was painful and require multiple sticks. Now he continues to describe pain. He would like to discuss knee replacement. He had a steroid injection 2 months ago. [facility] Medical History (Updated 10/18/24 @ 00:00 by Bari Milton) Osteoarthritis of right hip joint due to dysplasia High cholesterol Arthritis Seasonal allergies Skin cancer LIANNA on CPAP Elevated cholesterol Surgical History (Updated 10/05/23 @ 08:27 by Priscilla Noriega CMA) S/P right rotator cuff repair (06/30/23) H/O total hip arthroplasty Status post right knee replacement History of total right knee replacement S/P skin cancer resection History of bilateral carpal tunnel release S/P lumbar microdiscectomy Hx of nasal septoplasty History of vasectomy Hx of colonoscopy History of total right knee replacement Hx of esophagogastroduodenoscopy Family History Father No problems noted. Mother No problems noted. 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 He is wearing a compression stocking He has no calf tenderness to palpation. He has reasonable knee range of motion with no obvious restrictions. Office Procedures Joint Inj/Aspir; Non-Pain Clin Joint Injection/Drain Details: Aspiration left knee Obtained 40 cc of normal-appearing synovial fluid via superolateral approach Prep: site was prepped using aseptic technique Shoulders, Hips, Knees, Knee Large Joint Injection : Left Knee Coding Procedure code (CPT) selection complete Results Reviewed Results Reviewed: I personally reviewed relevant radiographs. Severe left knoo tricompartmental OA RIght total knee arthroplasty in expected post operative position with no hardware complications or evidence of loosening Assessment & Plan Assessment & Plan (1) Osteoarthritis of left knee: Code(s): M17.12 - Unilateral primary osteoarthritis, left knee Category: Medical Plan: 64-year-old with a swollen arthritic left knee. We have discussed arthroplasty in the past and he is ready to proceed forward. He understands the procedure as he has had a right knee replacement done. We discussed surgery and I do recommend a minimum of 3 months from prior steroid injection prior to any knee replacement. He is little frustrated because he wants to have it done sooner but we need to make sure we do are appropriate preoperative clearances and I think that if his swelling and inflammation were less he would have an easier postop recovery as well. I will have him talk to Rayna her central scheduler and proceed forward from there. Coding Level of Care Code Est Pt Level 4 (91198) Diagnoses Osteoarthritis of left knee M17.12 CPT Codes Shoulders, Hips, Knees, - Knee Large Joint Injection 00628: Left Knee ([id number])
== END 2024-11-07 11:15 | disposition home or self-care (01) ==
LOC: HO.HOS 09:50
PROVIDERS: PCP Internal Medicine; Visit Provider Orthopaedic Surgery
DX: M17.12 Unilateral primary osteoarthritis, left knee (principal)
CPT/HCPCS: 20610; 99214

== ENCOUNTER → 2024-11-07 09:49 | Outpatient (BNVA) | payer OTHER, SELFPAY | PROVIDERS: PCP Internal Medicine; Visit Provider Orthopaedic Surgery | DX: M17.12 Unilateral primary osteoarthritis, left knee (principal) | CPT/HCPCS: 20610 ==

== ENCOUNTER 2024-12-05 10:23 | Outpatient (AMB) | payer OTHER, SELFPAY ==
[2024-12-05 10:24] VITALS: BP 142/82; PULSE 78; RESP 16; TEMP 36.6; O2SAT 98; BMI 44.3
--- NOTE | 2024-12-05 10:24 | A.OFFPC_ITS ---
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 Accompanied by: Self / Same As Patient Allergies morphine Allergy (Intermediate, Verified 12/05/24 10:42) respiratory rate dropped seasonal Allergy (Unknown, Uncoded 12/05/24 10:42) nasal congestion, affects hearing Medication List - Last Reconciled 12/05/24 by Kenia Solo PA-C acetaminophen 650 mg (2 x 325 mg) PO Q6H PRN 30 days losartan mg PO DAILY oxycodone 5 mg PO Q6H PRN rosuvastatin 10 mg PO BEDTIME Tobacco use date assessed: 12/05/24 Dental Screening Dental Screen Date: 12/05/24 Did you have a dental visit in the last 12 months?: Yes Did you have a dental problem in the last 6 months where you did not have access to dental care?: No Was dental information given to patient?: Patient has dentist HPI establish care HPI Details The patient is a 64-year-old male presenting to establish a new primary care provider due to his primary care provider Dr. Almaraz is retiring in January of 2025. Patient reports he has a follow-up appointment next month for a preoperative evaluation related to scheduled left knee joint replacement due to osteoarthritis. His history of hypertension is managed with losartan, and hyperlipidemia is controlled with rosuvastatin. He has undergone previous o rthopedic surgeries, including knee replacements and hip surgery. He experiences left knee pain managed with Tylenol, within the setting of osteoarthritis progression. His laboratory assessments revealed mild anemia and increased ESR levels, with lipid profiles and PSA within normal limits. A colonoscopy was done in 2021 following polyp detection. Further tests such as A1c and others are pending. The patient's history includes the removal of a melanoma lesion, and he reports seasonal allergies. Social History - Established care with a new primary ca re provider following the [facility] of Dr. Saeed. 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 Mother No problems noted. 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 1. Little interest or pleasure in doing things: not at all 2. Feeling down, depressed, or hopeless: not at all 3. Trouble falling or staying asleep, or sleeping too much: not at all 4. Feeling tired or having little energy: not at all 5. Poor appetite or overeating: not at all 6. Feeling bad about yourself - or that you are a failure or have let yourself or your family down: not at all 7. Trouble concentrating on things, such as reading the newspaper or watching television: not at all 8. Moving or speaking so slowly that other people could have noticed. Or the opposite - being so fidgety or restless that you have been moving around a lot more than usual: not at all 9. Thoughts that you would be better off or of hurting yourself in some way: not at all Total score: 0 Depression Screening Interpretation: Negative Depression Screening Done: Yes 25415 - PHQ-9 Billing: Yes Source: Developed by Drs. Aquilino Samano, Twila Rondon, Chris Snider and colleagues, with an educational angelia from [employer]. Thrive Questionnaire Date Thrive assessed: 12/05/24 I am a: Patient What is your living situation today?: I have a steady place to live Within the past 12 months, did the food you bought not last and you didn't have the money to get more?: Never true Within the past 12 months, did you worry whether your food would run out before you got money to buy more?: Never true Do you have trouble paying for medicines?: No Do you have trouble getting transportation to medical appointments?: No Do you have trouble paying your heating and electricity bill?: No Do you have trouble taking care of your child, family member or friend?: No Do you have trouble with day-to-day activities such as bathing, preparing meals, shopping, managing finances, etc.?: No Are you currently unemployed and looking for a job?: No Are you interested in more education?: No Please select the resources that you would like help with: None THRIVE Score: 0 AUDIT C Alcohol Use Questionnaire (AUDIT-C) 1. How often do you have a drink containing alcohol?: 2-4 times a month 2. How many drinks containing alcohol do you have on a typical day when you are drinking?: 1 or 2 3. How often do you have six or more drinks on one occasion?: Never Total Score: 2 Score Reviewed/Action Taken: No SOFÍA-7 AMB Questionnaire SOFÍA-7 Date SOFÍA - 7 assessed: 12/05/24 Feeling nervous, anxious, or on edge: 0 = Not at all Not being able to stop or control worryin = Not at all Worrying too much about different things: 0 = Not at all Trouble relaxin = Not at all Being so restless that it is hard to sit still: 0 = Not at all Becoming easily annoyed or irritable: 0 = Not at all Feeling afraid as if something awful might happen: 0 = Not at all Total SOFÍA-7 score (0-4 normal; 5-9 mild; 10-14 moderate; 15-21 severe): 0 Source: Developed by Twila Velasquez, Chris Snider and colleagues, with an educational angelia from [employer]. SOFÍA-7 Assessment Billing SOFÍA-7 Assessment Tool: SOFÍA-7 Assessment 00741 Review of Systems Const Details: - Cardiovascular: Denies chest pain or dizziness. - Respiratory: Denies shortness of breath. - Gastrointestinal: Denies unintentional weight change, hematochezia, or abdominal pain. - Musculoskeletal: Reports chronic pain in the left knee, managed with Tylenol. - General: Denies any new symptoms or concerns. Physical exam (Primary Care) Vital Signs: Last Vital Signs Temp 97.9 F 12/05/24 10:24 Pulse 78 12/05/24 10:24 Resp 16 12/05/24 10:24 BP 142/82 H 12/05/24 10:24 Pulse Ox 98 12/05/24 10:24 Oxygen Delivery Method Room Air 12/05/24 10:24 Care Plan Goal for BP management: <130/90 patient will continue 50 mg of losartan and keep a blood pressure diary of his blood pressure 2 hours after he takes his blood pressure medications losartan and bring it at his next visit. If blood pressure remains elevated we will increase the losartan patient agreeable with this. BMI result Body Mass Index 44.3 BMI Assessment/Plan discussion: High BMI High, discussed plan: lifestyle, weight reduction, dietary, physical activity and alcohol moderation Tobacco/Smoking Status: Tobacco use Status Tobacco use date assessed 12/05/24 12/05/24 10:34 Patient Tobacco Use Status Never used Tobacco 12/05/24 10:34 PHQ-9: PHQ-9 Score PHQ-9: Total score 0 12/05/24 10:44 Depression Screening Interpretation: Negative Thrive Assessment: Date of Thrive Assessment Date Thrive assessed 12/05/24 12/05/24 10:34 Const Other: Appearance: Alert. Oriented X3. No acute distress. Head: Normal external exam. Normocephalic. Atraumatic. Eyes: Pupils are equal, round, and reactive to light. Extraocular movements intact. Conjunctiva and sclera normal. Eyelids normal. Ears: External auditory canal normal. Tympanic membranes normal. Throat: Pharynx normal. Uvula midline. Moist mucous membranes. Neck: Normal inspection. Neck supple. Full range of motion. No adenopathy. Thyroid Normal. No meningeal signs. No neck mass noted. Cardiovascular: Normal heart rate and rhythm. Heart sound normal. No murmurs noted. Pulses normal throughout. Respiratory: No respiratory distress. Painless inspiration. Breath sounds normal. No wheezes/rales/rhonchi noted. Chest nontender. No accessory muscle usage noted or decreased air movement noted. Abdomen: Soft and nontender. Bowel sounds normal in all 4 quadrants. No distention noted. No organomegaly noted. No visible injury noted. Back: No costovertebral angle tenderness. Full range of motion noted. Skin: Skin warm and dry. Normal skin color. Normal skin turgor. No rashes/lesions/lacerations noted. Extremities: No lower extremity edema. Extremities exhibit normal range of motion. Extremities nontender. Reports chronic pain to his left knee. Neuro: Oriented X 3. No motor deficit. No sensory deficit. Reflexes normal. Results Reviewed Results Reviewed: - Labs: Mild anemia, elevated ESR of 18, normal LDL of 88, normal cholesterol of 145, normal triglycerides of 89, and normal HDL of 40. - Tests and Diagnostics: Normal PSA. Coding Level of Care Code New Pt Level 4 (27062) Complex EM visit Add On G2211 Diagnoses Establishing care with new doctor, encounter for Z76.89 Skin cancer C44.90 Seasonal allergies J30.2 High cholesterol E78.00 LIANNA on CPAP G47.33; Z99.89 Osteoarthritis of left knee M17.12 Arthritis M19.90 Anemia D64.9 Hypertension I10 Additional Codes SOFÍA-7 Assessment Billing - SOFÍA-7 Assessment Tool: SOFÍA-7 Assessment 16842 ([id number]) PHQ-9 - 24003 - PHQ-9 Billing: Yes ([id number]) Assessment & Plan Assessment & Plan (1) Establishing care with new doctor, encounter for: Code(s): Z76.89 - Persons encountering health services in other specified circumstances Category: Medical (2) Skin cancer: Comment: melanoma Right abdominal skin wall removed Code(s): C44.90 - Unspecified malignant neoplasm of skin, unspecified Category: Medical Plan: Routine follow-ups advised post melanomectomy without complication. Condition is chronic and stable will continue to monitor. (3) Seasonal allergies: Code(s): J30.2 - Other seasonal allergic rhinitis Category: Medical Plan: Manage symptoms with antihistamines as needed. Condition is chronic and stable continue to monitor. (4) High cholesterol: Code(s): E78.00 - Pure hypercholesterolemia, unspecified Category: Medical Plan: Continue current rosuvastatin dosage, as levels are controlled. Condition is chronic and stable will continue to monitor. (5) LIANNA on CPAP: Comment: CPAP nightly Code(s): G47.33 - Obstructive sleep apnea (adult) (pediatric); Z99.89 - Dependence on other enabling machines and devices Category: Medical Plan: Pt to continue using CPAP. Condition is chronic and stable will continue to monitor. (6) Osteoarthritis of left knee: Code(s): M17.12 - Unilateral primary osteoarthritis, left knee Category: Medical Plan: Plan involves preparing for upcoming knee replacement, ensuring necessary pre-op evaluations with labs, chest X-ray, and EKG. Condition is chronic and stable will continue to monitor. (7) Arthritis: Code(s): M19.90 - Unspecified osteoarthritis, unspecified site Category: Medical Plan: Plan involves preparing for upcoming knee replacement, ensuring necessary pre-op evaluations with labs, chest X-ray, and EKG. Condition is chronic and stable will continue to monitor. (8) Anemia: Code(s): D64.9 - Anemia, unspecified Category: Medical Plan: Additional tests planned for anemia, with B12 evaluation pending. Condition is chronic and stable will continue to monitor. (9) Hypertension: Code(s): I10 - Essential (primary) hypertension Category: Medical Plan: <130/90. Patient currently on losartan 50 mg daily. Patient to monitor his bl ood pressure over the next month and return in 1 month for blood pressure check with his diary. If blood pressure continues to remain above 130/90 losartan will be increased. Patient agreeable to this. Condition is chronic and stable continue to monitor. Plan Plan Patient was informed and verbally consented to the use of an ambient scribe for clinic note documentation during this visit. 1. Osteoarthritis Of The Left Knee Plan involves preparing for upcoming knee replacement, ensuring necessary pre-op evaluations with labs, chest X-ray, and EKG. 2. Essential Hypertension Management continues with losartan; monitor blood pressure regularly. 3. Hyperlipidemia Continue current rosuvastatin dosage, as levels are controlled. 4. History Of Melanoma Routine follow-ups advised post melanomectomy without complication. 5. Mild Anemia Additional tests planned for anemia, with B12 evaluation pending. 6. Seasonal Allergic Rhinitis Manage symptoms with antihistamines as needed. During the consultation, I explained the plan for ongoing management of osteoarthritis of the left knee, with surgery scheduled for February 28, 2025. The risks, benefits, and alternatives of left knee replacement were discussed, and the preoperative evaluation plan was detailed, including necessary blood work, chest X-ray, and EKG. The patient was informed about additional studies needed to evaluate for anemia, including vitamin B12 and folate levels. Our discussion included the continuation of current medications for hypertension and hyperlipidemia. Follow-up dermatology evaluations were recommended for the history of melanoma. The importance of regular blood pressure checks and continued lipid monitoring was emphasized. The necessity of managing seasonal allergies with antihistamines was also addressed. Orders: Orders ECG 12 lead EKG Today Z01.818 - Encounter for other preprocedural examination Vitamin D 25-OH Total Today Z00.00 - Encounter for general adult medical examination without abnormal findings Hemoglobin A1c Today Z00.00 - Encounter for general adult medical examination without abnormal findings TSH reflex Free T4 Today Z00.00 - Encounter for general adult medical examination without abnormal findings Vitamin B12 and Folate Today Z00.00 - Encounter for general adult medical examination without abnormal findings Complete Blood Count Auto Diff Today Z00.00 - Encounter for general adult medical examination without abnormal findings Comprehensive Met. Panel Today Z00.00 - Encounter for general adult medical examination without abnormal findings Liver Panel Today Z00.00 - Encounter for general adult medical examination without abnormal findings Magnesium Today Z00.00 - Encounter for general adult medical examination without abnormal findings XR chest 2V Today Z01.818 - Encounter for other preprocedural examination, Z76.89 - Persons encountering health services in other specified circumstances Medications: Changed From losartan PO DAILY To losartan 50 mg PO DAILY Discontinued oxycodone Partial Fill upon patient request. Discontinued Reason: Doctor's Order 5 mg PO Q6H PRN 14 tabs 0RF pain, moderate Patient Instructions: - Proceed with scheduled chest X-ray and EKG as discussed. - Continue medications for blood pressure and cholesterol as prescribed. - Use Tylenol sparingly as needed for knee pain. - Take prescribed antihistamines for allergy relief. - Follow up with pre-op lab work as scheduled before the next appointment. - Ensure routine follow-ups for any dermatological concerns.
== END 2024-12-05 11:04 | disposition home or self-care (01) ==
LOC: HO.HMCSH 10:23
PROVIDERS: PCP Internal Medicine; Visit Provider Physician Assistant Medical
DX: Z76.89 Persons encountering health services in other specified circumstances (principal); C44.90 Unspecified malignant neoplasm of skin, unspecified; J30.2 Other seasonal allergic rhinitis; E78.00 Pure hypercholesterolemia, unspecified; G47.33 Obstructive sleep apnea (adult) (pediatric); Z99.89 Dependence on other enabling machines and devices; M17.12 Unilateral primary osteoarthritis, left knee; M19.90 Unspecified osteoarthritis, unspecified site; D64.9 Anemia, unspecified; I10 Essential (primary) hypertension

== ENCOUNTER → 2024-12-05 10:23 | Outpatient (BNVA) | payer OTHER, SELFPAY | PROVIDERS: PCP Internal Medicine; Visit Provider Physician Assistant Medical | DX: Z76.89 Persons encountering health services in other specified circumstances (principal); C43.59 Malignant melanoma of other part of trunk; J30.2 Other seasonal allergic rhinitis; E78.00 Pure hypercholesterolemia, unspecified; G47.33 Obstructive sleep apnea (adult) (pediatric); M17.12 Unilateral primary osteoarthritis, left knee; D64.9 Anemia, unspecified; I10 Essential (primary) hypertension; Z79.899 Other long term (current) drug therapy; Z99.89 Dependence on other enabling machines and devices | CPT/HCPCS: 96127 ==

== ENCOUNTER → 2025-01-11 09:46 | Outpatient (REF) | payer OTHER, SELFPAY ==
--- NOTE | ~2025-01-11 | XR_ITS ---
EXAMINATION: XR CHEST CLINICAL INFORMATION: Z76.89 - Persons encountering health services in other specified circums... COMPARISON: None available. TECHNIQUE: 2 views of the chest were obtained. FINDINGS: The cardiac, hilar, and mediastinal contours are normal. The lungs are clear bilaterally. There is no pneumothorax or pleural effusion. There is no focal osseous or soft tissue abnormality. XR/XR chest 2V IMPRESSION: No active pulmonary disease. Electronically signed by: Romero Chun MD 01/12/2025 07:53 AM EDT
--- NOTE | 2025-01-11 09:52 | ECG_ITS ---
Test Reason : PREOP Blood Pressure : */* mmHG Vent. Rate : 70 BPM Atrial Rate : 70 BPM P-R Int : 194 ms QRS Dur : 72 ms QT Int : 412 ms P-R-T Axes : 51 53 71 degrees QTcB Int : 444 ms Sinus rhythm with occasional Premature ventricular complexes Nonspecific ST abnormality Abnormal ECG When compared with ECG of 11-Jun-2020 15:24, Premature ventricular complexes are now Present Referred By: Kenia Solo Electronically Signed By: JACQUELIN CELIS
[2025-01-11 10:11] LABS: MANUAL DIFF FLAG NO
--- OUTSIDE RECORDS SUMMARY | 2025-01-11 10:18 | XMS_ITS ---
Author Organization [facility] Address [address] [place] [address] Care Team Providers Care Forensic Ballistics Expert Name Role Phone PRINCESS BRANTLEY Primary Care Provider Eligio Jordan Jr [phone] Allergies Allergen (clinical drug ingredient) Drug/Non Drug Allergy documented on EMR Reaction Allergy Type Onset Date Status morphine Morphine Unknown Drug Allergy Active Seasonal (uncoded) stop breathing Allergy Active REASON FOR VISIT Patient presents today for a discuss colonoscopy Medications Medication SIG (Take, Route, Frequency, Duration) Notes Start Date End Date Status Losartan Potassium 50 MG Oral for 90 Days Active Naproxen 500mg Not-T aking Multivitamin Active Rosuvastatin Calcium 10 MG Oral for 90 Active Problems Problem Type SNOMED Code ICD Code Onset Dates Problem Status W/U Status Risk Notes Problem Screening colonoscopy (827154118) Encounter for screening colonoscopy (Z12.11) Active confirmed Problem Pre-procedure evaluation check (002158954) Encounter for other preprocedural examination (Z01.818) Active confirmed Problem Personal history of adenomatous and serrated colon polyps (Z86.0101) Active confirmed Vital Signs Temperature 97.7 degrees Fahrenheit 12/22/19 25 Blood pressure systolic 001 mm Hg 12/22/19 25 Blood pressure diastolic 01 mm Hg 025 Height 67.5 in 12/21/2024 Weight 281.4 lbs 12/21/2024 BMI 43.42 kg/m2 12/21/2024 Encounters Encounter Location Date Provider Diagnosis [facility] [address] [place] [address] 12/21/2024 Eligio Guillen Jr Encounter for screening colonoscopy Z12.11 ; Encounter for other preprocedural examination Z01.818 and Personal history of adenomatous and serrated colon polyps Z86.0101 Assessments Encounter Date Diagnosis (ICD Code) Assessment Notes Treatment Notes Treatment Clinical Notes Section Notes 12/21/2024 Encounter for screening colonoscopy (ICD-10 - Z12.11) We discussed colonoscopy today. We discussed risks and benefits of the procedure today. He understands these and agrees to proceed. This will be scheduled at his convenience. 12/21/2024 Encounter for other preprocedural examination (ICD-10 - Z01.818) We discussed colonoscopy today. We discussed risks and benefits of the procedure today. He understands these and agrees to proceed. This will be scheduled at his convenience. 12/21/2024 Personal history of adenomatous and serrated colon polyps (ICD-10 - Z86.0101) We discussed colonoscopy today. We discussed risks and benefits of the procedure today. He understands these and agrees to proceed. This will be scheduled at his convenience. Plan Of Treatment Future Test Test Name Order Date COLONOSCOPY 12/21/2024 Next Appt Details Follow Up: 1 Year, Reason: Provider Name:Eligio chase Jr, 06/02/2025 07:30:00 AM, [address] [place] [address], [id number], Progress Notes * ANTIONETTE STRANGEDOB:1960 (64 yo M)Acc No.[id number]:12/21/2024 Progress Notes Patient:?ANTIONETTE STRANGE Provider:?Eligio Guillen MD :1960???Age:64 Y???Sex:Male Emanuel e:12/21/2024 Address:[address] [place] [address] Pcp:PRINCESS BRANTLEY Subjective: * Chief Complaints: * ???1. Patient presents today for a discuss colonoscopy. * HPI: ???New symptom(s):? The patient is a pleasant 64-year-old man seen today in consultation. He has a history of colon polyps and last underwent colonoscopy with removal of multiple adenomas in December 2021. 5-year follow-up is due. He has no complaints of rectal bleeding or change in his bowel habits. Weight and appetite have been stable. * ROS:?General/Constitutional:?Change in appetite?denies.?Fatigue?denies.?ENT:?Patient denies?difficulty swallowing.?Respiratory:?Patient denies?shortness of breath.?Cardiovascular:?Patient denies?chest pain.?Gastrointestinal:?Comments?See HPI for details.?Genitourinary:?Difficulty urinating?denies.?Incontinence?denies.?Musculoskeletal:?Patient denies?muscle aches.?Skin:?Patient denies?pruritis.?Neurologic:?Patient denies?low back pain.?Psychiatric:?Patient denies?mental or physical abuse.? * Medical History:?Elevated ch olesterol, Arthritis involving the back and hip, Denies TX,DM,CVA,Lung disease,renal disease, Sleep apnea-cpap machine. * Surgical History:?back surge ry , deviated septum repair , carpal tunnel bilateral , vasectomy , right knee replacement on 10/10/13 , skin cancer abd removed , right hip replacement , left knee replacement . * Family History:?Father: dece ased, troke , emphysema, diagnosed with Heart disease.?Mother: , mother passed from G.I bleed.?Maternal Grand Mother: stomach cancer.?Siblings: diagnosed with Diabetes.? No family history of colon cancer or liver cancer.? Mother side grandmother had stomach cancer. * Social History:?Tobacco Use:?Tobacco Use/Smoking?Are you a: nonsmoker.?Drugs/Alcohol:?Alcohol Screen?Points: 2, Interpretation: Negative.?Miscellaneous:?Marital status: . 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 * Medications:?Taking Multivit interiano , Taking Rosuvastatin Calcium 10 MG Tablet Oral , Taking Losartan Potassium 50 MG Tablet Oral , Not-Taking/PRN Naproxen 500mg , Discontinued MiraLax (colon prep) 17 GM/SCOOP Powder mixed with Gatorade or Crystal Light Orally begin at 5:00 p.m. the day before the procedure , Medication List reviewed and reconciled with the patient * Allergies:?Seasonal: stop br eathing, Morphine. Objective: * Vitals:?Wt:281.4lbs, Ht: 67. 5 in, BMI:43.42Index, BP:001/01mm Hg, Temp:97.7, Wt- k.64. * Examination: ???General Examination: ?GENERAL APPEARANCE:?in no acute distress.?HEAD:?normocephalic.?EYES:?sclera non-icteric.?ORAL CAVITY:?mucosa moist.?NECK/THYROID:?no lymphadenopathy.?SKIN:?anicteric.?HEART:?S1, S2 normal, no murmurs.?LUNGS:?clear to auscultation bilaterally.?CHEST:?normal shape and expansion.?ABDOMEN:?soft, nontender, nondistended, bowel sounds present, no organomegaly .?EXTREMITIES:?no clubbing, cyanosis, or edema.?PSYCH:?cognitive function intact.? Assessment: * Assessment: 1.?Encounter for other prepr ocedural examination - Z01.818 (Primary)???2.?Encounter for screening colonoscopy - Z12.11???3.?Personal history of adenomatous and serrated colon polyps - Z86.0101??? We discussed colonoscopy tod ay. We discussed risks and benefits of the procedure today. He understands these and agrees to proceed. This will be scheduled at his convenience. Plan: * Treatment: * Procedure Codes:?3017F COLOR ECTAL CA SCREEN DOC REV, G9903 Pt scrn tbco id as non user, G8785 BP SCR NOT PRFRM REC REASON NOS * Preventive Medicine:? ??Counseling:?Care goal follow-up plan:?Above Normal BMI Follow-up?Dietary management education, guidance, and counseling,?BMI management provided?Yes.? * Follow Up:?1 Year * * Sign off status: Completed true * Provider:?Eligio Guillen MD Date:?0 12/21/2024 Generated for Donald perez/Jose/eTransmitting on:?01/11/2025 10:17 AM EDT History and Physical Notes * HPI (History of Present Illness) Category Sub-Category Detail Notes Category Not es New symptom(s) The patient i s a pleasant 64-year-old man seen today in consultation. He has a history of colon polyps and last underwent colonoscopy with removal of multiple adenomas in December 2021. 5-year follow-up is due. He has no complaints of rectal bleeding or change in his bowel habits. Weight and appetite have been stable. Examination Category Sub-Category Detail Notes Category Not es General Examination GENERAL APPEARANCE: in no acute di stress HEAD: normocephalic EYES: sclera non-icteric NECK/THYROID: no lymphadenopathy HEART: S1, S2 normal, no mu rmurs CHEST: normal shape and exp ansion LUNGS: clear to auscultatio n bilaterally ABDOMEN: soft, nontender, non distended, bowel sounds present, no organomegaly SKIN: anicteric EXTREMITIES: no clubbing, cyanosi s, or edema PSYCH: cognitive function i ntact ORAL CAVITY: mucosa moist
[2025-01-11 10:43] LABS: Basophils Absolute Auto 0.1 X10*3/uL (0.0-0.2); Basophils Percent Auto 0.9 % (0-2); Eosinophils Absolute Auto 0.2 X10*3/uL (0.0-0.4); Hematocrit 40.9 % (42.0-52.0); Hemoglobin 14.2 g/dl (14.0-18.0); Imm Gran Abs Auto 0.01 X10*3/uL (0.00-0.03); Imm Gran Pct Auto 0.2 % (0.0-0.4); Lymphocytes Absolute Auto 1.6 X10*3/uL (1.2-4.9); Lymphocytes Percent Auto 28.7 % (20-40); Mean Corpuscular HGB Conc 34.7 g/dl (31.0-36.0); Mean Corpuscular Hemoglobin 29.8 pg (27.0-33.0); Mean Corpuscular Volume 85.7 fL (80.0-98.0); Monocytes Absolute Auto 0.8 X10*3/uL (0.1-1.2); Monocytes Percent Auto 14.6 % (2-11); Neutrophils Absolute Auto 2.8 x10*3/uL (2.0-8.3); Neutrophils Percent Auto 52.6 % (45-73); Platelet Count 175 X10*3/uL (160-400); Red Blood Count 4.77 X10*6/uL (4.60-5.80); Red Cell Distribution Width 12.6 % (11.0-16.0); White Blood Count 5.4 X10*3/uL (4.8-10.8)
[2025-01-11 10:53] LABS: Estimated Average Glucose 111 mg/dL; Hemoglobin A1C 136.2442 umol/L; Hemoglobin A1c % 5.5 % (<6.0); Total Hemoglobin (HGBA1C) 3731.0388 umol/L
[2025-01-11 12:26] LABS: Folate 12.1 ng/mL (> or = 4.0); Vitamin B12 376 pg/mL (200-900)
[2025-01-11 14:11] LABS: Alanine Aminotransferase 33 U/L (0-40); Albumin Level 4.4 g/dL (3.5-5.0); Alkaline Phosphatase 54 U/L (39-117); Anion Gap 11 (12-20); Aspartate Amino Transferase 30 U/L (5-37); Bilirubin Direct 0.2 mg/dL (0.0-0.5); Bilirubin Total 0.7 mg/dL (0.0-1.0); Blood Urea Nitrogen 14 mg/dL (9-16); Calcium 9.2 mg/dL (8.4-10.2); Carbon Dioxide 28 mmol/L (22-29); Chloride 103 mmol/L (96-108); Estimated Glomerular Filt Rate > 60; Glucose Random 96 mg/dL (60-115); Magnesium 2.2 mg/dL (1.6-2.6); Potassium 4.1 mmol/L (3.3-5.1); Sodium 138 mmol/L (135-145); Total Protein 7.3 g/dL (6.5-8.0)
[2025-01-11 14:31] LABS: TSH reflex Free T4 0.73 uIU/mL (0.32-4.0); Vitamin D 25-OH Total 31.4 ng/mL (>30)
== END ==
LOC: HO.CARD 09:46
PROVIDERS: PCP Internal Medicine; Visit Provider Physician Assistant Medical
DX: Z01.818 Encounter for other preprocedural examination (principal); Z76.89 Persons encountering health services in other specified circumstances; Z13.1 Encounter for screening for diabetes mellitus
CPT/HCPCS: 36415; 71046; 80053; 82248; 82306; 82607; 82746; 83036; 83735; 84443; 85025; 93005

== ENCOUNTER → 2025-01-11 09:52 | Outpatient (BNV) | payer OTHER, SELFPAY | PROVIDERS: PCP Internal Medicine; Visit Provider Internal Medicine | DX: I49.3 Ventricular premature depolarization (principal) | CPT/HCPCS: 93010 ==

== ENCOUNTER → 2025-01-11 10:11 | Outpatient (BNV) | payer OTHER, SELFPAY | PROVIDERS: PCP Internal Medicine; Visit Provider Radiology Diagnostic Radiology | DX: Z76.89 Persons encountering health services in other specified circumstances (principal) | CPT/HCPCS: 71046 ==

== ENCOUNTER → 2025-01-30 08:45 | Outpatient (BNVA) | payer OTHER, SELFPAY | PROVIDERS: PCP Internal Medicine | DX: Z01.818 Encounter for other preprocedural examination (principal) ==

== ENCOUNTER 2025-02-14 09:20 | Outpatient (AMB) | payer OTHER, SELFPAY ==
[2025-02-14 09:21] VITALS: BP 137/63; PULSE 88; RESP 16; TEMP 36.6; O2SAT 97; BMI 44.6
--- NOTE | 2025-02-14 09:21 | MHC.PC.OV ---
Vital Signs 02/14/25 09:21 Height 5 ft 7 in Weight 285 lb BMI 44.6 BP 137/63 Respiration 16 Pulse 88 Pulse Source Pulse Oximeter Temp 97.9 F Temp Source Temporal Artery Scan Pulse Oximetry (%) 97 Oxygen Delivery Method Room Air Intake Visit Reasons: TKR Vp Mobile Products Required: No Accompanied by: Self / Same As Patient Allergies morphine Allergy (Intermediate, Verified 02/14/25 09:36) respiratory rate dropped seasonal Allergy (Unknown, Uncoded 02/14/25 09:36) nasal congestion, affects hearing Medication List - Last Reconciled 02/14/25 by Fercho Watkins MD acetaminophen ER 650 mg PO Q12H PRN ibuprofen 600 mg PO Q8H PRN losartan 50 mg PO DAILY multivitamin with iron 1 tab PO DAILY rosuvastatin 10 mg PO BEDTIME walker Folding Front wheeled walker Tobacco use date assessed: 02/14/25 Dental Screening Dental Screen Date: 12/05/24 HPI TKR HPI Details Patient presents for a preop clearance for a total left knee replacement. Procedure under General Anesthesia. 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 Mother No problems noted. 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 1. Little interest or pleasure in doing things: not at all 2. Feeling down, depressed, or hopeless: not at all 3. Trouble falling or staying asleep, or sleeping too much: not at all 4. Feeling tired or having little energy: not at all 5. Poor appetite or overeating: not at all 6. Feeling bad about yourself - or that you are a failure or have let yourself or your family down: not at all 7. Trouble concentrating on things, such as reading the newspaper or watching television: not at all 8. Moving or speaking so slowly that other people could have noticed. Or the opposite - being so fidgety or restless that you have been moving around a lot more than usual: not at all 9. Thoughts that you would be better off or of hurting yourself in some way: not at all Total score: 0 Depression Screening Interpretation: Negative Depression Screening Done: Yes 39357 - PHQ-9 Billing: Yes Source: Developed by Drs. Aquilino Samano, Twila Rondon, Chris Snider and colleagues, with an educational angelia from [employer]. Thrive Questionnaire Date Thrive assessed: 12/05/24 I am a: Patient What is your living situation today?: I have a steady place to live Within the past 12 months, did the food you bought not last and you didn't have the money to get more?: Never true Within the past 12 months, did you worry whether your food would run out before you got money to buy more?: Never true Do you have trouble paying for medicines?: No Do you have trouble getting transportation to medical appointments?: No Do you have trouble paying your heating and electricity bill?: No Do you have trouble taking care of your child, family member or friend?: No Do you have trouble with day-to-day activities such as bathing, preparing meals, shopping, managing finances, etc.?: No Are you currently unemployed and looking for a job?: No Are you interested in more education?: No Please select the resources that you would like help with: None THRIVE Score: 0 AUDIT C Alcohol Use Questionnaire (AUDIT-C) 1. How often do you have a drink containing alcohol?: 2-4 times a month 2. How many drinks containing alcohol do you have on a typical day when you are drinking?: 1 or 2 3. How often do you have six or more drinks on one occasion?: Never Total Score: 2 Score Reviewed/Action Taken: No SOFÍA-7 AMB Questionnaire SOFÍA-7 Date SOFÍA - 7 assessed: 12/05/24 Feeling nervous, anxious, or on edge: 0 = Not at all Not being able to stop or control worryin = Not at all Worrying too much about different things: 0 = Not at all Trouble relaxin = Not at all Being so restless that it is hard to sit still: 0 = Not at all Becoming easily annoyed or irritable: 0 = Not at all Feeling afraid as if something awful might happen: 0 = Not at all Total SOFÍA-7 score (0-4 normal; 5-9 mild; 10-14 moderate; 15-21 severe): 0 Source: Developed by Drs. Aquilino Samano, Twila Rondon, Chris Snider and colleagues, with an educational angelia from [employer]. SOFÍA-7 Assessment Billing SOFÍA-7 Assessment Tool: SOFÍA-7 Assessment 50641 Physical exam (Primary Care) Vital Signs: Last Vital Signs Temp 97.9 F 02/14/25 09:21 Pulse 88 02/14/25 09:21 Resp 16 02/14/25 09:21 BP 137/63 02/14/25 09:21 Pulse Ox 97 02/14/25 09:21 Oxygen Delivery Method Room Air 02/14/25 09:21 BMI result Body Mass Index 44.6 Tobacco/Smoking Status: Tobacco use Status Tobacco use date assessed 02/14/25 02/14/25 09:27 Patient Tobacco Use Status Never used Tobacco 02/14/25 09:27 PHQ-9: PHQ-9 Score PHQ-9: Total score 0 02/14/25 09:27 Depression Screening Interpretation: Negative Thrive Assessment: Date of Thrive Assessment Date Thrive assessed 12/05/24 02/14/25 09:27 Coding Level of Care Code Est Pt Level 4 (86859) Complex EM visit Add On G2211 Diagnoses Osteoarthritis of left knee M17.12 Additional Codes SOFÍA-7 Assessment Billing - SOFÍA-7 Assessment Tool: SOFÍA-7 Assessment 85488 ([id number]) PHQ-9 - 76025 - PHQ-9 Billing: Yes ([id number]) Assessment & Plan Assessment & Plan (1) Osteoarthritis of left knee: Code(s): M17.12 - Unilateral primary osteoarthritis, left knee Category: Medical Plan: Proceed to surgery for knee repalacement. BW revd and EKG revd. Continue meds upto the day of surgery. Post op care as per surgeon Plan History of Present Illness - The patient is a 64-year-old male presenting with preoperative evaluation for right knee replacement. - He has a history of right knee osteoarthritis, with a previous knee replacement 13 years ago. - The patient also has a history of right hip osteoarthritis, with a hip replacement performed 5 years ago. - He underwent a rotator cuff repair on the right shoulder 2 years ago. - He was treated for skin cancer approximately 8 years ago. - The patient has a history of anemia, which has been corrected. - He regularly donates blood every two months. - The patient is up to date on his colonoscopy, although the next one was postponed due to surgery and is scheduled for May. - He has no history of tobacco use. 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 - Tobacco use: Denies any history of tobacco use. Review of Systems - Respiratory: Denies dyspnea or wheezing. Physical Exam General: Cooperative and healthy appearing Nutritional Appearance: Well nourished Orientation/consciousness: Patient oriented x3 Limitations: No limitations Head: Normal to inspection General: Appearance normal, both eyes and all related structures Neck: Normal visual inspection Chest: Normal palpation of entire chest wall Respiratory: No shortness of breath, no wheezing ormal respiratory effort Neurology: Patient oriented x3 Results - Labs: Blood work reviewed, anemia corrected. - Tests: EKG reviewed and normal. Plan 1. Right Knee Osteoarthritis - Plan for right knee replacement surgery on February 28 at [facility] under Dr. Gonzalez. - Preoperative instructions include taking medications up to the night before surgery and holding them on the morning of surgery. - Postoperative care to include physical therapy at home for two weeks. Discussion Notes I discussed with the patient the plan for his upcoming right knee replacement surgery, including the date, location, and surgeon. We reviewed the preoperative instructions, emphasizing the importance of medication management before surgery. Postoperative care was also discussed, including the arrangement for physical therapy at home. The patient was informed about the follow-up visit in six months. Patient Instructions - Take medications up to the night before surgery, hold them on the morning of surgery. - Arrange for physical therapy at home for two weeks post-surgery. - Follow up in six months for a postoperative evaluation.
--- OUTSIDE RECORDS SUMMARY | 2025-02-14 09:45 | XMS_ITS | Patient Health Record ---
Author Organization [facility] Address [address] [place] [address] Care Team Providers Care Curing Oven Attendant Name Role Phone PRINCESS BRANTLEY Primary Care Provider Eligio Jordan Jr [phone] Allergies Allergen (clinical drug ingredient) Drug/Non Drug Allergy documented on EMR Reaction Allergy Type Onset Date Status morphine Morphine Unknown Drug Allergy Active Seasonal (uncoded) stop breathing Allergy Active Reason For Referral No Information Medications Medication SIG (Take, Route, Frequency, Duration) Notes Start Date End Date Status Losartan Potassium 50 MG Oral for 90 Days Active Naproxen 500mg Not-T aking Multivitamin Active Rosuvastatin Calcium 10 MG Oral for 90 Active Immunizations Vaccine Route Administration Date Status Comme nts Influenza Unknown 04/26/2024 Administered Influenza Unknown 11/21/2021 Refused Problems Problem Type SNOMED Code ICD Code Onset Dates Problem Status W/U Status Risk Notes Problem Screening colonoscopy (223028052) Encounter for screening colonoscopy (Z12.11) Active confirmed Problem Pre-procedure evaluation check (366521919) Encounter for other preprocedural examination (Z01.818) Active confirmed Problem 450066719 Gastroesophageal reflux disease without esophagitis (K21.9) Active confirmed Problem Personal history of adenomatous and serrated colon polyps (Z86.0101) Active confirmed Vital Signs Temperature 97.7 degrees Fahrenheit 12/21/2024 Blood pressure diastolic 01 mm Hg 12/21/2024 Height 67.5 in 12/21/2024 Blood pressure systolic 001 mm Hg 12/21/2024 Weight 281.4 lbs 12/21/2024 BMI 43.42 kg/m2 12/21/2024 Encounters Encounter Location Date Provider Diagnosis [facility] [address] [place] [address] 12/21/2024 Eligio Guillen Jr Encounter for screening colonoscopy Z12.11 ; Encounter for other preprocedural examination Z01.818 and Personal history of adenomatous and serrated colon polyps Z86.0101 [facility] [address] [place] [address] 12/27/2024 Eligio Guillen Jr Assessments Encounter Date Diagnosis (ICD Code) Assessment [...] Future Test Test Name Order Date COLONOSCOPY 09/02/2011 UPPER GI ENDOSCOPY 10/05/2013 COLONOSCOPY 11/21/2021 COLONOSCOPY 12/21/2024 Next Appt Details Provider Name:Eligio chase Jr, 06/02/2025 07:30:00 AM, [address] [place] [address] , [place], [place], [phone], Insurance Providers Payer Name Payer Address Payer Phone Subscriber Number Group Number Insured Name Patient Relationship to Insured Coverage Start Date Coverage End Date [facility] [address] [place] [phone] [id number] ANTIONETTE STRANGE Self - patient is the insured Medical (General) History Medical History History ICD Code elevated cholesterol arthritis involving the back and hip Denies ID,DM,CVA,Lung disease,renal dise ase sleep apnea-cpap machine Surgical History Surgery Date(Month/Year) left knee replacement right hip replacement skin cancer abd removed right knee replacement on 10/10/13 vasectomy carpal tunnel bilateral deviated septum repair back surgery
== END 2025-02-14 09:41 | disposition home or self-care (01) ==
LOC: HO.HMCSH 09:20
PROVIDERS: PCP Internal Medicine; Visit Provider Internal Medicine
DX: M17.12 Unilateral primary osteoarthritis, left knee (principal)

== ENCOUNTER → 2025-02-14 09:20 | Outpatient (BNVA) | payer OTHER, SELFPAY | PROVIDERS: PCP Internal Medicine; Visit Provider Internal Medicine | DX: Z01.818 Encounter for other preprocedural examination (principal); M17.12 Unilateral primary osteoarthritis, left knee; Z13.31 Encounter for screening for depression | CPT/HCPCS: 96127 ==

== ENCOUNTER 2025-02-23 08:47 | Outpatient (AMB) | payer OTHER, SELFPAY ==
--- NOTE | 2025-02-23 08:57 | A.OFFVIS_ITS ---
Vital Signs 02/23/25 08:58 Height 5 ft 7 in Weight 285 lb BMI 44.6 Intake Visit Reasons: L TKA w/NE 02/28/25 Intake Note: Winston is a 64 year old male who presents today for a Total Joint Pre-Op. He is currently booked for a Left Total Knee Arthroplasty with Dr. Gonzalez on 02/28/25. Allergies morphine Allergy (Intermediate, Verified 02/23/25 09:04) respiratory rate dropped seasonal Allergy (Unknown, Uncoded 02/23/25 09:04) nasal congestion, affects hearing Medication List - Last Reconciled 02/23/25 by Penelope Mehta PA-C acetaminophen ER 650 mg PO Q12H PRN ibuprofen 600 mg PO Q8H PRN losartan 50 mg PO DAILY multivitamin with iron 1 tab PO DAILY rosuvastatin 10 mg PO BEDTIME walker Folding Front wheeled walker HPI Comments Details: Mr Feliciano presents to the office today for preop visit. He is scheduled for left total knee arthroplasty with Dr. Gonzalez. He continues to have ongoing pain and difficulty with ambulation in the left knee, which is affecting his quality of life; therefore, he has elected to move forward with surgery. He had prior hip replacement with Dr. Gonzalez and right total hip arthroplasty with Dr. Singh. Both without complications. 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 Mother No problems noted. 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 Cognitive needs: No Hearing needs: No Vision needs: Yes (rx glasses) Review of Systems Const All systems reviewed & are unremarkable except as noted in HPI and below Physical Exam Vital Signs: BMI result Body Mass Index 44.6 Const General: cooperative, healthy appearing, comfortable, no acute distress, well developed and alert Orientation/consciousness: patient oriented x3 HEENT Head: Yes normal to inspection, Yes normocephalic and Yes atraumatic Eyes General: appearance normal, both eyes and all related structures Neck Neck: Yes normal visual inspection and Yes no lymphadenopathy Resp Effort & Inspection: normal respiratory effort and able to speak in complete sentences Cardio Rate: regular rate Peripheral pulses: Peripheral pulses 2+ throughout GI Inspection: Yes normal to inspection Palpation (GI): Soft to palpation Skin General skin exam: no rashes or lesions noted Neuro General: patient oriented x3 Extrem Other: Left knee normal to inspection. Full range of motion Calf supple and nontender neurovascularly intact Psych Appearance: grossly normal Mental Status: mental status grossly normal Assessment & Plan Assessment & Plan (1) Osteoarthritis of left knee: Code(s): M17.12 - Unilateral primary osteoarthritis, left knee Category: Medical Plan: I discussed in detail the procedure and what to expect pre and post operatively. We discussed the risks, benefits and alternatives to the surgery as well as the rehabilitation course. The risks; which include, but are not limited to infection, bleeding, nerve injury, ongoing pain, swelling, and stiffness, perioperative risk of injury to bones and soft tissues, and blood clots. I?ve answered all questions and with their understanding they have consented to move forward with Left total knee arthroplasty with Dr. Gonzalez Patient does have a walker at home Patient is going to attend the [facility] physical therapy facility closer to home. A physical therapy order was given today and advised to make an appointment to be scheduled after his 03/16/2025 postop appointment. Patient can not take Celebrex due to a history of hematochezia Despite the patient's allergy to morphine he can tolerate oxycodone. Orders: Orders Type and Screen 25 Days Z01.818 - Encounter for other preprocedural examination Complete Blood Count Auto Diff Today Z01.818 - Encounter for other preprocedural examination Basic Metabolic Panel Today Z01.818 - Encounter for other preprocedural examination PT Evaluation and Treatment Today Z96.652 - Presence of left artificial knee joint Coding Level of Care Code Est Pt Level 3 (63597) Complex EM visit Add On G2211 Diagnoses Osteoarthritis of left knee M17.12
[2025-02-23 08:58] VITALS: BMI 44.6
--- OUTSIDE RECORDS SUMMARY | 2025-02-23 08:59 | XMS_ITS | Patient Health Record ---
Author Organization [facility] Address [address] [place] [address] Care Team Providers Care Property Management Assistant Name Role Phone PRINCESS BRANTLEY Primary Care Provider Eligio Jordan Jr [phone] Allergies Allergen (clinical drug ingredient) Drug/Non Drug [...] W/U Status Risk Notes Problem Screening colonoscopy (926670069) Encounter for screening colonoscopy (Z12.11) Active confirmed Problem Pre-procedure evaluation check (677935086) Encounter for other preprocedural examination (Z01.818) Active confirmed Problem 019103581 Gastroesophageal reflux disease without esophagitis (K21.9) Active confirmed Problem Personal history of adenomatous and serrated colon polyps (Z86.0101) Active confirmed Vital Signs Temperature 97.7 degrees Fahrenheit 12/21/2024 Blood pressure diastolic 01 mm Hg 12/21/2024 Height 67.5 in 12/21/2024 Blood pressure systolic 001 mm Hg 12/21/2024 Weight 281.4 lbs 12/21/2024 BMI 43.42 kg/m2 12/21/2024 Encounters Encounter Location Date Provider Diagnosis [facility] [address] [place] [address] 12/21/2024 Eligio Guillen Jr Encounter for screening colonoscopy Z12.11 ; Encounter for other preprocedural examination Z01.818 and Personal history of adenomatous and serrated colon polyps Z86.0101 [facility] [address] [place] [address] 12/27/2024 Eligio Guillen Jr Assessments Encounter Date [...] Next Appt Details Provider Name:Eligio chase Jr, 05/23/2025 07:30:00 AM, [address] [place] [address] , [place], [place], [phone], Insurance Providers Payer Name Payer Address Payer Phone Subscriber Number Group Number Insured Name Patient Relationship to Insured Coverage Start Date Coverage End Date [facility] [address] [place] [phone] [id number] ANTIONETTE STRANGE Self - patient is the insured Medical (General) History Medical History History ICD Code elevated cholesterol arthritis involving the back and hip Denies SD,DM,CVA,Lung disease,renal dise ase sleep apnea-cpap machine Surgical History Surgery Date(Month/Year) left knee replacement right hip replacement skin cancer abd removed right knee replacement on 10/10/13 vasectomy carpal tunnel bilateral deviated septum repair back surgery
== END 2025-02-23 09:28 | disposition home or self-care (01) ==
LOC: HO.HOS 08:47
PROVIDERS: PCP Internal Medicine; Visit Provider Physician Assistant
DX: M17.12 Unilateral primary osteoarthritis, left knee (principal)
CPT/HCPCS: 99024

== ENCOUNTER 2025-02-28 07:00 | Day surgery (SDC) | payer OTHER, SELFPAY ==
[2025-01-31 12:21] VITALS: BP 149/73; PULSE 66; RESP 17; O2SAT 96; BMI 44.8
--- NOTE | 2025-01-31 12:38 | HO.ANESPROP2 ---
Documented by User: Talisha Perry NP 02/23/25 10:09 HPI - Anesthesia Eval Consult details Narrative: 64yo M for Left Knee Replacement Total, 02/28/25 No recent illness No CP/SOB with limited activity d/t knee pain. Swimming with 3 yo grandson without CV issue s/p R TKA 2011 LIANNA: CPAP QHS 1 x obtunded after anesthesia requiring mask vent support - did not require reintubation s/p microdisc laminectomy at L4-5. 02/23/25: Per ortho provider, pt expressed anxiety regarding spinal anesthesia at preop surgical appointment. [facility] Active Problems Active Problems: All Active Problems Osteoarthritis of left knee (Acute) Internal derangement of right shoulder (Acute) Shoulder weakness (Acute) Status post total hip replacement, right (Acute) Hypertension (Acute) Anemia (Acute) Pre-op evaluation (Acute) Establishing care with new doctor, encounter for (Acute) Skin cancer (Acute) Seasonal allergies (Acute) Arthritis (Acute) High cholesterol (Acute) LIANNA on CPAP (Acute) S/P right rotator cuff repair (Acute 06/30/23) Past Medical History Medical History Hx of melanoma of skin Hypertension Anemia Pre-op evaluation Establishing care with new doctor, encounter for 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 Mother No problems noted. Family history of problems with anesthesia: No Surgical History Surgical History S/P right rotator cuff repair (06/30/23) H/O total hip arthroplasty S/P skin cancer resection History of bilateral carpal tunnel release S/P lumbar microdiscectomy Hx of nasal septoplasty History of vasectomy Hx of colonoscopy (~12/20/21) History of total right knee replacement Hx of esophagogastroduodenoscopy History of Problems with Anesthesia: No Social History Social History Household Members Other:: Daughter Housing: House Are you a primary resident care technician to a significant other at home: No Do you presently have visiting nurse or other home services: No Alcohol intake: current Alcohol intake frequency: a few times a month Patient Tobacco Use Status: Never used Tobacco Use of substances other than those prescribed or required for medical reasons: No Have you been hit, kicked, punched, or otherwise hurt by someone within the past year? 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 Cognitive needs: No Hearing needs: No Vision needs: Yes (rx glasses) Meds Allergies Allergy/AdvReac Type Severity Reaction Status Date / Time morphine Allergy Intermediate respiratory Verified 02/23/25 09:04 rate dropped seasonal Allergy Unknown nasal Uncoded 02/23/25 09:04 congestion, affects hearing Home Medications ?Medication ?Instructions ?Recorded ?Confirmed ?Last Taken ?Type ibuprofen 600 mg tablet 600 mg PO Q8H PRN Pain 01/30/25 02/14/25 Unknown History acetaminophen 650 mg 650 mg PO Q12H PRN Pain 01/31/25 02/14/25 Unknown History tablet,extended release multivitamin with iron 1 tab PO DAILY 01/31/25 02/14/25 Unknown History Exam Height,Weight and Vital Signs: Height 5 ft 7 in Weight 129.727 kg Last Vital Signs Pulse 66 01/31/25 12:21 Resp 17 01/31/25 12:21 BP 149/73 H 01/31/25 12:21 Pulse Ox 96 01/31/25 12:21 O2 Del Method Room Air 01/31/25 12:21 Narrative Narrative: EKG 01/2025 Vent. Rate : 70 BPM Atrial Rate : 70 BPM P-R Int : 194 ms QRS Dur : 72 ms QT Int : 412 ms P-R-T Axes : 51 53 71 degrees QTcB Int : 444 ms Sinus rhythm with occasional Premature ventricular complexes Nonspecific ST abnormality Abnormal ECG When compared with ECG of 11-Jun-2020 15:24, Premature ventricular complexes are now Present Airway Mallampati Class: II TM Dist: >3cm Neck ROM: Full Loose/Missing/Broken Teeth: Yes (Left lower permanent bridge, ? 1 x crown) Heart: RRR Lungs: CTAB Assessment and Plan Assessment Anesthesia Assessment: Chart Reviewed Final Anesthetic Review Family History of Problems with Anesthesia: No History of Problems with Anesthesia: No Documented by User: Daniela Cary NP 02/27/25 10:25 HPI - Anesthesia Eval Consult details Narrative: 64yo M for Left Knee Replacement Total, 02/28/25 No recent illness No CP/SOB with limited activity d/t knee pain. Swimming with 3 yo grandson without CV issue s/p R TKA 2011 s/p R rotator cuff repair 2022 LIANNA: CPAP QHS 1 x obtunded after anesthesia requiring mask vent support - did not require reintubation s/p microdisc laminectomy at L4-5. 02/23/25: Per ortho provider, pt expressed anxiety regarding spinal anesthesia at preop surgical appointment. 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 Mother No problems noted. Surgical History Surgical History S/P right rotator cuff repair (06/30/23) H/O total hip arthroplasty S/P skin cancer resection History of bilateral carpal tunnel release S/P lumbar microdiscectomy Hx of nasal septoplasty History of vasectomy Hx of colonoscopy (~12/20/21) History of total right knee replacement Hx of esophagogastroduodenoscopy Social History Social History Household Members Other:: Daughter Housing: House Are you a primary resident care technician to a significant other at home: No Do you presently have visiting nurse or other home services: No Alcohol intake: current Alcohol intake frequency: a few times a month Patient Tobacco Use Status: Never used Tobacco Use of substances other than those prescribed or required for medical reasons: No Have you been hit, kicked, punched, or otherwise hurt by someone within the past year? 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 Cognitive needs: No Hearing needs: No Vision needs: Yes (rx glasses) Meds Allergies Allergy/AdvReac Type Severity Reaction Status Date / Time morphine Allergy Intermediate respiratory Verified 02/23/25 09:04 rate dropped seasonal Allergy Unknown nasal Uncoded 02/23/25 09:04 congestion, affects hearing Home Medications ?Medication ?Instructions ?Recorded ?Confirmed ?Last Taken ?Type ibuprofen 600 mg tablet 600 mg PO Q8H PRN Pain 01/30/25 02/14/25 Unknown History acetaminophen 650 mg 650 mg PO Q12H PRN Pain 01/31/25 02/14/25 Unknown History tablet,extended release multivitamin with iron 1 tab PO DAILY 01/31/25 02/14/25 Unknown History Documented by User: Linette Benson MD 02/28/25 07:31 [facility] Past Medical History Medical History Hx of melanoma of skin Hypertension Anemia Pre-op evaluation Establishing care with new doctor, encounter for 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 Mother No problems noted. Surgical History Surgical History S/P right rotator cuff repair (06/30/23) H/O total hip arthroplasty S/P skin cancer resection History of bilateral carpal tunnel release S/P lumbar microdiscectomy Hx of nasal septoplasty History of vasectomy Hx of colonoscopy (~12/20/21) History of total right knee replacement Hx of esophagogastroduodenoscopy Social History Social History Household Members Other:: Daughter Housing: House Are you a primary resident care technician to a significant other at home: No Do you presently have visiting nurse or other home services: No Alcohol intake: current Alcohol intake frequency: a few times a month Patient Tobacco Use Status: Never used Tobacco Use of substances other than those prescribed or required for medical reasons: No Have you been hit, kicked, punched, or otherwise hurt by someone within the past year? 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 Cognitive needs: No Hearing needs: No Vision needs: Yes (rx glasses) Meds Allergies Allergy/AdvReac Type Severity Reaction Status Date / Time morphine Allergy Intermediate respiratory Verified 02/23/25 09:04 rate dropped seasonal Allergy Unknown nasal Uncoded 02/23/25 09:04 congestion, affects hearing Home Medications ?Medication ?Instructions ?Recorded ?Confirmed ?Last Taken ?Type ibuprofen 600 mg tablet 600 mg PO Q8H PRN Pain 01/30/25 02/14/25 Unknown History acetaminophen 650 mg 650 mg PO Q12H PRN Pain 01/31/25 02/14/25 Unknown History tablet,extended release multivitamin with iron 1 tab PO DAILY 01/31/25 02/14/25 Unknown History Assessment and Plan Assessment Anesthesia Assessment: Anesthesia Plan Discussed Final Anesthetic Review NPO: Yes ASA Class: III Final Preanesthetic Review: No Changes in Pt Med Stat, Meds/Allgs Chart Reviewed, Consent Obtained/Reviewed and Anes Risks/Benef Reviewed Patient Risk: Intermediate Procedure Risk: Intermediate Anesthetic Plan Anesthetic Plan: GA, Spinal, Regional Block and Agree w/ Assess. and Plan Disposition: Standard PACU
[2025-01-31 14:19] LABS: MRSA Nasal PCR NEGATIVE (Negative); SA Nasal PCR NEGATIVE (Negative)
[2025-02-23 10:18] LABS: MANUAL DIFF FLAG NO
[2025-02-23 10:42] LABS: Hematocrit 43.0 % (42.0-52.0); Hemoglobin 14.8 g/dl (14.0-18.0); Imm Gran Abs Auto 0.01 X10*3/uL (0.00-0.03); Imm Gran Pct Auto 0.2 % (0.0-0.4); Lymphocytes Absolute Auto 1.4 X10*3/uL (1.2-4.9); Mean Corpuscular HGB Conc 34.4 g/dl (31.0-36.0); Mean Corpuscular Hemoglobin 29.8 pg (27.0-33.0); Mean Corpuscular Volume 86.7 fL (80.0-98.0); NRBC Abs Auto 0.000 X10*3/uL (0.0-0.012); NRBC Pct Auto 0.0 /100WBC (0.0-0.2); Platelet Count 161 X10*3/uL (160-400); Red Blood Count 4.96 X10*6/uL (4.60-5.80); White Blood Count 4.3 X10*3/uL (4.8-10.8)
[2025-02-23 11:26] LABS: Anion Gap 13 (12-20); Blood Urea Nitrogen 15 mg/dL (9-16); Calcium 8.7 mg/dL (8.4-10.2); Carbon Dioxide 25 mmol/L (22-29); Chloride 106 mmol/L (96-108); Creatinine Clr Calc Pharmacy 111.2; Estimated Glomerular Filt Rate > 60; Potassium 4.2 mmol/L (3.3-5.1); Sodium 140 mmol/L (135-145)
[2025-02-28] VITALS (18 sets, daily range): BP systolic 115–175; BP diastolic 55–88; PULSE 58–77; RESP 8–20; TEMP 36.2–37.1; O2SAT 94–99; BMI 44.7; BMI 45.6
--- NOTE | ~2025-02-28 | XR_ITS ---
EXAMINATION: XR KNEE, LEFT CLINICAL INFORMATION: LT TKA COMPARISON: September 12, 2024 TECHNIQUE: AP and lateral views of the left knee. FINDINGS: Since prior examination, total knee arthroplasty has been performed. There is gas in the suprapatellar pouch, with fluid. Skin jay are still in place anteriorly. Hardware appears anatomically positioned. XR/XR knee LT 2V IMPRESSION: Postoperative changes related to recent knee arthroplasty. Electronically signed by: Ha Reis MD 02/28/2025 12:30 PM EDT
[2025-02-28 07:32] LABS: Hematocrit 43.2 % (42.0-52.0); Hemoglobin 14.9 g/dl (14.0-18.0)
--- NOTE | 2025-02-28 07:42 | MHC.SHP ---
Pre-Procedural Eval Section A - 24 Hr Update-Section A only Date of Service: 02/28/25 The patient is an INPATIENT: No Changes since office visit: No Cold of Flu in the past 2 weeks, No New Medical Problems, No Changes in Medication and No Patient answered all questions The patient has been examined within 24 hours of the surgical procedure. The History & Physical has been completed within 30 days and I have reviewed it.: Yes Section B - Complete if H&P > 30 days Chief Complaint: Unilateral primary osteoarthritis, left knee Allergies: Allergies Allergy/AdvReac Type Severity Reaction Status Date / Time morphine Allergy Intermediate respiratory Verified 02/28/25 07:39 rate dropped seasonal Allergy Intermediate nasal Uncoded 02/28/25 07:39 congestion, affects hearing Plan I have reviewed the history and physical and performed a pertinent physical examination on my patient. No changes have occurred unless specified. Time Spent With Patient Time: Total time managing care of this patient today ____ minutes.
[2025-02-28] MEDS: Lactated Ringers 1,000 ML 100 ML IVCONT ×3 (08:04→22:17)
--- NOTE | 2025-02-28 08:34 | P.DS_ITS ---
DS: Providers Provider Date of Service: 03/01/25 Date of admission: 02/28/25 07:15 Date of discharge: 03/01/25 Primary care physician: Tom Saeed MD DS: Summary Hospital Course Hospital Course: The patient underwent a successful left total knee arthroplasty, they were transferred to PACU and then to the floor to recover. During their stay, their vitals were stable, afebrile at 97.5. Labs were unremarkable, H/H 12.3/35.5. POD 1 they were started on Aspirin 325mg po bid for DVT ppx, they also received Physical Therapy services twice a day. Prior to discharge, their dressing was clean dry and intact, and the plan was to be discharged home with VNA services. Time Attestation Discharge Coordination Time (in mins): 30 Quality: Safe Use of Opioids Does Pt have an Active Cancer Diagnosis on the Problem List?: No Quality: Stroke Does the patient have a stroke diagnosis?: No Physical Exam Vital Signs: Vital Signs: Last Vital Signs Temp 97.6 F 02/28/25 07:46 Pulse 65 02/28/25 07:46 Resp 16 02/28/25 07:46 BP 167/85 H 02/28/25 07:46 Pulse Ox 98 02/28/25 07:46 O2 Del Method Room Air 02/28/25 07:46 BMI result Body Mass Index 44.7 Const: General: cooperative, healthy appearing and no acute distress Resp: Effort & Inspection: normal respiratory effort and able to speak in complete sentences Cardio: Rate: regular rate Peripheral pulses: Peripheral pulses 2+ throughout GI: Palpation (GI): Soft to palpation Skin: Lesions: no lesions Rashes: no rashes Extrem: Other: lt knee dressing is c/d/i. Able to dorsi/plantar flex. Calf is supple and nontender. Sensation intact. Pedal pulse intact. DS: Data Data Completed and Pending Completed studies during hospitalization [Text1]: Procedures Replacement of Right Hip Joint with Synthetic Substitute, Uncemented, Open Approach (07/09/20) Labs on day of discharge: Laboratory Results - last 24 hr 02/28/25 07:27 Hgb 14.9 Hct 43.2 Discharge Plan Discharge Anticipated Discharge Date/Time: 03/01/25 11:32 Patient Disposition: Home Health Service Discharge Diagnosis: s/p LTKA Referrals: Penelope Mehta PA-C [Physician Hydropulper Operator, Orthopedics] - 03/16/25 3:15 pm Discharge Medications: New docusate sodium 100 mg Capsule 100 mg PO BID 7 Days Qty: 14 0RF aspirin 325 mg Tablet 325 mg PO BID 42 Days Qty: 84 0RF acetaminophen 325 mg Tablet 650 mg PO Q6H PRN (Reason: Pain, Mild 1-3,Fever,Headache) 30 Days Qty: 240 0RF oxycodone 5 mg Tablet 5 mg PO Q4H PRN (Reason: Pain, Moderate(Pain Scale 4-6)) 7 Days Qty: 42 0RF Rx Instructions: Partial Fill upon patient request. Continued (DME) walker Misc See Rx Instructions .MEDSUPPLY Qty: 1 0RF Rx Instructions: Folding Front wheeled walker losartan 50 mg tablet 50 mg PO DAILY Qty: 90 1RF rosuvastatin 10 mg tablet 10 mg PO BEDTIME Qty: 90 1RF multivitamin with iron Tablet 1 tab PO DAILY Discontinued acetaminophen 650 mg Tablet Extended Release 650 mg PO Q12H PRN (Reason: Pain) ibuprofen 600 mg tablet 600 mg PO Q8H PRN (Reason: Pain) Discharge Orders: Discharge Order (Routine); Ordered 03/01/25 Ordered By: Jessica Melendez Diet: Advance to usual diet Activity on Discharge: Use cane or walker Stand Alone Forms: Patient Portal Discharge page Print Language: Montserratian Care Plan Goals: Physical Therapy for ROM 0-120, quad strength, gait training. Use walker for ambulation Limit stair climbing, No shower, No tub bath, No driving Continue anticoagulant x 6 weeks Keep Aquacel dressing clean, dry and intact. Follow up with orthopedics in 2 weeks Health Concerns: None Plan of Treatment: Restore fxn to left knee Assessment: Stable for discharge
--- NOTE | 2025-02-28 08:35 | W.MHC.F2F ---
Service Date Service Date: 02/28/25 Encounter Date of encounter: 03/01/25 Reasons for Services Signs and symptoms assessed: s/p LTKA Pt. is considered homebound due to recent surgery. Unable to drive, poor balance, poor gait mechanics. Reason for physical therapy: home safety and mobility, therapeutic exercises, restore joint function, gait/transfer training and ADL training Homebound: Leaving the home is medically contraindicated at this time without the asist of a device and/or another person due th the listed conditions above and below. Reason homebound: unsteady gait / fall risk, leg weakness, pain with ambulation, poor balance / fall risk and unable to drive Certification: Based on the above findings, I certify that this patient is confined to the home and needs intermittent [facility] care, physical therapy and/or speech therapy, or continues to need occupational therapy. The patient is under my care, and I have initiated the establishment of the plan of care. The patient will be followed by a physician who will periodically review the plan of care. Time Spent With Patient Time: Total time managing care of this patient today ____ minutes.
--- NOTE | 2025-02-28 11:17 | PHA.MEDREC ---
Pharmacy Consult ? Medication Reconciliation Pharmacy has reviewed the medication reconciliation completed by nursing.
--- NOTE | 2025-02-28 11:18 | P.BOP_ITS ---
Brief Operative Note Date of Service: 02/28/25 Pre-op diagnosis: Left knee OA Post-op diagnosis: same Procedure: Left TKA Implants: [employer] Triathlon posterior stabilized press fir PA 11/12/10a Surgeon: Enoch Gonzalez MD Anesthesia: GETA and regional Was an Senior Officer used for this Procedure?: Yes Senior Officer: Penelope Mehta Estimated blood loss (mL): 50 Tourniquet time (min): 70 Pathology: other Condition: stable Disposition: PACU
--- NOTE | 2025-02-28 11:44 | W.PM.OPN ---
Operative Note Operative Note Date of Service: 02/28/25 Narrative: Date of Service: 02/28/25 Pre-op diagnosis: Left knee OA Post-op diagnosis: same Procedure: Left TKA Implants: [place] Triathlon posterior stabilized press fir PA 11/12/10 Surgeon: Enoch Gonzalez MD Anesthesia: GETA and regional Was an Gasoline Truck Crane Operator used for this Procedure?: Yes Gasoline Truck Crane Operator: Penelope Mehta Estimated blood loss (mL): 50 Tourniquet time (min): 70 Pathology: other Condition: stable Disposition: PACU Procedure in detail: The patient was brought to the operating room and prepped and draped in standard sterile fashion. A time-out was called to identify proper site proper procedure proper surgeon and IV antibiotics were administered. 1 g of IV tranexamic acid was administered. I began by making a midline incision to the retinaculum and performed a medial parapatellar arthrotomy. The patella was translated laterally and the knee was flexed up. My treasury assistant was used to hold two maura retractors in the medial and lateral gutters. The medial compartment was eburnated and the anterior compartment, specifically the patella, was deformed and had acetabularized. I performed a small medial peel and resected the infrapatellar fat pad. Lakeland's line was then used to drill my intramedullary femoral guide and my distal femur cut of 10 mm was made in 5 degrees of valgus while protecting the soft tissues. I then measured a # 4 femur and placed my cutting guide and made my anterior posterior and chamfer cuts protecting the soft tissues at all times. I then made my box but removing the PCL. Once I was satisfied with my cuts I turned my attention to the tibia. I removed the meniscus medially and laterally and , using an external cutting guide, in line with the tibial crest and the third ray, I made my distal tibial cut in 0 deg slope of while protecting the posterior soft tissues at all times. An extension block was used to confirm appropriate amount of bony resection. I then sized a #5 tibia and once I was satisfied that there was complete tibial coverage I placed my trial and with the trial femur in place took the knee through range of motion. I was satisfied with the extension and flexion as well as the balance at 0, 30 and 90 degrees. I then turned my attention to the patella where I removed 1 cm from the undersurface of the patella and then trialed a32a patellar button. Again the knee was taken through range of motion I was satisfied with the tracking. I then prepared the tibia with a drill and punch. The PCL was intact and the the bone quality was excellent so elected to press fit a CR knee. A femoral bone plug was placed and the knee was irrigated copiously. I then cemented the patella, tibia and femur in standard fashion. Axial compression and a clamp were used while the cement dried. Once the cement was hard on the back table all excess cement was removed and I trialed different inserts until I selected a #11 insert. The final insert was placed and local TXA was administered. The knee was then closed with a running Quill suture, a 3 0 Vicryl and jay on the skin. Patient was then placed in sterile dressing and brought to recovery room in stable condition there were no known complications.
--- NOTE | 2025-02-28 15:38 | HO.PM.IMCN ---
History of Present Illness Data of Consult Service Date: 02/28/25 Primary Care Provider: Tom Saeed MD HPI Reason for consult: Medical management 64-year-old male with a past medical history of hypertension, hyperlipidemia, anemia, history of skin cancer, LIANNA on CPAP. Patient underwent a left total knee replacement today with Dr. Gonzalez. Patient has had surgeries in the past including right shoulder repair, right hip replacement, right knee replacement, bilateral carpal tunnel, and history of L4-L5 microdiskectomy. Patient was followed by dermatology every 3-4 months due to melanoma that was removed on his abdomen. On exam he is awake and alert, positive CMS to his left knee, dressing clean dry and intact with no strike through drainage. He denies any shortness of breath, dizziness, lightheadedness or any other concerning symptoms. Denies any nausea or vomiting. Reports his pain is well controlled. 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 Mother No problems noted. Surgical History H/O repair of right rotator cuff H/O total hip arthroplasty S/P skin cancer resection History of bilateral carpal tunnel release S/P lumbar microdiscectomy Hx of nasal septoplasty History of vasectomy Hx of colonoscopy (~12/20/21) History of total right knee replacement Hx of esophagogastroduodenoscopy Social History Household Members: Spouse Household Members Other:: and daughter Housing: House Are you a primary director of career services to a significant other at home: No Do you presently have visiting nurse or other home services: No Alcohol intake: current Alcohol intake frequency: a few times a month Comment: COUNTS CORRECT Patient Tobacco Use Status: Never used Tobacco Use of substances other than those prescribed or required for medical reasons: No Have you been hit, kicked, punched, or otherwise hurt by someone within the past year? 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 Cognitive needs: No Hearing needs: No Vision needs: Yes (rx glasses) Meds Allergies Allergy/AdvReac Type Severity Reaction Status Date / Time morphine Allergy Intermediate respiratory Verified 02/28/25 07:39 rate dropped seasonal Allergy Intermediate nasal Uncoded 02/28/25 07:39 congestion, affects hearing Active Medications: Current Medications Acetaminophen (Acetaminophen 325 Mg Tablet) 650 mg PO Q6H PRN PRN Reason: Pain, Mild 1-3,fever,headache Aspirin (Aspirin 325 Mg Tablet) 325 mg PO BID [facility] Docusate Sodium (Docusate Sodium 100 Mg Capsule) 100 mg PO BID [facility] Hydromorphone HCl (Hydromorphone Hcl 0.5 Mg/0.5 Ml Syringe) 0.25 mg IVPUSH Q4H PRN; Protocol PRN Reason: Pain, Severe (Pain Scale 7-10) Lactated Ringer's (Lr) 1,000 mls @ 100 mls/hr IVCONT .Q10H ALFRED Stop: 03/01/25 08:00 Last Admin: 02/28/25 13:27 Dose: 100 mls/hr Ondansetron HCl (Ondansetron Hcl 4 Mg/2 Ml Vial) 4 mg IVPUSH Q8H PRN PRN Reason: Nausea and Vomiting Oxycodone HCl (Oxycodone Hcl Immed Release 5 Mg Tablet) 5 mg PO Q4H PRN PRN Reason: Pain, Moderate(Pain Scale 4-6) Oxycodone HCl (Oxycodone Hcl Er 10 Mg Tab.Er.12h) 10 mg PO BID [facility] Sodium Chloride (0.9 % Sodium Chloride Flush 3 Ml Syringe) 3 ml IVFLUSH QSHIFT [facility] Home Medications ?Medication ?Instructions ?Recorded ?Confirmed ?Last Taken ?Type ibuprofen 600 mg tablet 600 mg PO Q8H PRN Pain 01/30/25 02/28/25 02/21/25 History acetaminophen 650 mg 650 mg PO Q12H PRN Pain 01/31/25 02/28/25 Unknown History tablet,extended release multivitamin with iron 1 tab PO DAILY 01/31/25 02/28/25 02/21/25 History Physical Exam Vital Signs and Narrative: Vital Signs: Last Vital Signs Temp 97.6 F 02/28/25 14:28 Pulse 65 02/28/25 14:28 Resp 16 02/28/25 14:28 BP 156/69 H 02/28/25 14:28 Pulse Ox 95 02/28/25 14:28 O2 Del Method Nasal Cannula 02/28/25 14:28 O2 Flow Rate 2 02/28/25 14:28 FiO2 45 02/28/25 13:50 BMI result Body Mass Index 45.6 CONST: Alert and oriented, in NAD. Well nourished HEENT: Normocephalic, atraumatic, MMM, Eyes clear, Neck supple RESP: Lungs clear, RRR even and regular HEART:,RRR, S1, S2. Nno edema GI:Abdomen Soft NT, ND. + BS times four. Obese abdomen :Deferred SKIN: Warm dry and intact, dressing to left knee clean dry and intact NEURO:CN II-XII Intact bilaterally, Sensation intact. Speech clear PSYCH: Normal affect Results Labs 02/28/25 07:27 02/23/25 10:16 Imaging Radiologist's Impressions: Impressions Knee X-Ray 02/28/25 12:00 IMPRESSION: Postoperative changes related to recent knee arthroplasty. 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 Left total knee replacement Treatment plan per Orthopedics Hypertension/hyperlipidemia Resume losartan in a.m., continue rosuvastatin or generic equivalent LIANNA on CPAP Continue CPAP
[2025-02-28] MEDS: oxyCODONE HCl Immed Release 5 MG TABLET PO (17:47)
[2025-02-28] MEDS: oxyCODONE HCl ER 10 MG TAB.ER.12H PO (22:15)
[2025-03-01 04:00] VITALS: BP 122/60; PULSE 61; RESP 16; TEMP 36.4; O2SAT 97
[2025-03-01] MEDS: oxyCODONE HCl Immed Release 5 MG TABLET PO ×2 (04:10→07:40)
[2025-03-01 05:48] LABS: MANUAL DIFF FLAG NO
[2025-03-01 05:59] LABS: Hematocrit 35.3 % (42.0-52.0); Hemoglobin 12.3 g/dl (14.0-18.0); Imm Gran Abs Auto 0.04 X10*3/uL (0.00-0.03); Imm Gran Pct Auto 0.4 % (0.0-0.4); Lymphocytes Absolute Auto 1.1 X10*3/uL (1.2-4.9); Mean Corpuscular HGB Conc 34.8 g/dl (31.0-36.0); Mean Corpuscular Hemoglobin 29.9 pg (27.0-33.0); Mean Corpuscular Volume 85.9 fL (80.0-98.0); NRBC Abs Auto 0.000 X10*3/uL (0.0-0.012); NRBC Pct Auto 0.0 /100WBC (0.0-0.2); Platelet Count 144 X10*3/uL (160-400); Red Blood Count 4.11 X10*6/uL (4.60-5.80); White Blood Count 9.4 X10*3/uL (4.8-10.8)
[2025-03-01 06:07] LABS: Anion Gap 11 (12-20); Blood Urea Nitrogen 17 mg/dL (9-16); Calcium 8.3 mg/dL (8.4-10.2); Carbon Dioxide 24 mmol/L (22-29); Chloride 106 mmol/L (96-108); Creatinine Clr Calc Pharmacy 103.0; Estimated Glomerular Filt Rate > 60; Potassium 3.7 mmol/L (3.3-5.1); Sodium 137 mmol/L (135-145)
[2025-03-01 07:34] VITALS: BP 126/58; PULSE 62; RESP 18; TEMP 36.4; O2SAT 97
[2025-03-01] MEDS: oxyCODONE HCl ER 10 MG TAB.ER.12H PO (07:40)
--- NOTE | 2025-03-01 07:44 | P.PNOP_ITS ---
Subjective Subjective Date of Service: 03/01/25 Interval history: POD1 s/p LTKA Patient is resting in bed comfortably No overnight events Pain is managed No additional complaints Physical Exam Vital Signs: Vital Signs: Last Vital Signs Temp 97.6 F 03/01/25 07:34 Pulse 62 03/01/25 07:34 Resp 18 03/01/25 07:34 BP 126/58 L 03/01/25 07:34 Pulse Ox 97 03/01/25 07:34 O2 Del Method Room Air 03/01/25 07:34 O2 Flow Rate 2 02/28/25 20:00 FiO2 45 02/28/25 13:50 BMI result Body Mass Index 45.6 Const: General: cooperative, healthy appearing and no acute distress Resp: Effort & Inspection: normal respiratory effort and able to speak in complete sentences Cardio: Rate: regular rate Peripheral pulses: Peripheral pulses 2+ throughout GI: Palpation (GI): Soft to palpation Skin: Lesions: no lesions Rashes: no rashes Extrem: Other: lt knee dressing is c/d/i. Able to dorsi/plantar flex. Calf is supple and non tender. Sensation intact. Pedal pulse intact. Procedures Date of Service Date of Service: 03/01/25 Progress Note: A&P Assessment and plan (1) Status post total left knee replacement: Status: Acute Plan Continue pain mgmnt Begin ASA for dvt ppx begin PT for LTKA Dispo planning-Pending PT eval, pain mgmnt Time Spent With Patient Time: Total time managing care of this patient today ____ minutes. Quality Stroke Does the patient have a stroke diagnosis?: No VTE Prior VTE?: No VTE Risk Level:: Medical - moderate - high VTE Device Contraindication: N/A - Device Ordered VTE Drug Contraindication: N/A - Med Ordered
--- NOTE | 2025-03-01 08:57 | HO.POSTANES ---
Post Anesthesia Evaluation Post Anesthesia Evaluation Date of Service: 02/28/25 Vital Signs: Vital Signs Temp Pulse Resp BP Pulse Ox O2 Del Method 03/01/25 07:34 97.6 F 62 18 126/58 L 97 Room Air 03/01/25 04:00 97.5 F 61 16 122/60 97 CPAP 02/28/25 23:59 97.1 F 61 12 115/74 98 CPAP Anesthesia: Nerve Block and General Mental Status: Awake Pain Control: Satisfactory Nausea/Vomiting: None Hydration: Adequate Anesthesia-Related Issues: No Anes. Related Issues
--- NOTE | 2025-03-01 11:34 | MHC.CM.PN ---
Patient dc'd home via private transport w/ services in place prior to CM assessment. Per chart review, patient lives in a home w/ and daughter. Functionally independent and has a walker that he has used w/ previous joint replacement. PCP Tom Saeed MD No HCP on file. [facility] was already arranged by ortho nurse navigator. They report that they have already pre-scheduled w/ patient. Attempted to contact patient via telephone to discuss. Left message w/ reminder that [facility] will provide PT.
[2025-03-01 11:45] VITALS: BP 147/68; PULSE 77; RESP 18; TEMP 36.7; O2SAT 97
== END 2025-03-01 11:28 | disposition home or self-care (01) ==
LOC: HO.SSS 07:00 → HO.SSSA 08:34 → HO.S3 03-01 11:12
PROVIDERS: Physician Assistant; PCP Internal Medicine; Visit Provider Orthopaedic Surgery
PROC: (CPT 27447; principal; 2025-02-28 09:50)
DX: M17.12 Unilateral primary osteoarthritis, left knee (principal); I10 Essential (primary) hypertension; E78.5 Hyperlipidemia, unspecified; D64.9 Anemia, unspecified; Z85.820 Personal history of malignant melanoma of skin; G47.33 Obstructive sleep apnea (adult) (pediatric); J30.2 Other seasonal allergic rhinitis; Z79.1 Long term (current) use of non-steroidal anti-inflammatories (NSAID); Z79.899 Other long term (current) drug therapy; Z99.89 Dependence on other enabling machines and devices; Z96.651 Presence of right artificial knee joint; Z96.641 Presence of right artificial hip joint; Z98.890 Other specified postprocedural states; Z88.5 Allergy status to narcotic agent
CPT/HCPCS: 27447; 36415; 73560; 80048; 85014; 85018; 85025; 86850; 86900; 86901; 87640; 87641; 88305; 88311; 97161; C1776; J0131; J0665; J0690; J1100; J1171; J1920; J2003; J2004; J2250; J2405; J2704; J2795; J3010; J7120

== ENCOUNTER 2025-02-28 07:15 | Outpatient (BNV) | payer OTHER, SELFPAY | END 2025-02-28 11:34 | PROVIDERS: Admitting Provider Physician Assistant; PCP Internal Medicine; Visit Provider Radiology Diagnostic Radiology | DX: M25.462 Effusion, left knee (principal) | CPT/HCPCS: 73560 ==

== ENCOUNTER → 2025-02-28 07:15 | Outpatient (BNV) | payer OTHER, SELFPAY | PROVIDERS: Admitting Provider Physician Assistant; PCP Internal Medicine; Visit Provider Orthopaedic Surgery | DX: Z47.1 Aftercare following joint replacement surgery (principal); Z96.652 Presence of left artificial knee joint; M17.12 Unilateral primary osteoarthritis, left knee | CPT/HCPCS: 27447; 99024; G0180 ==

== ENCOUNTER → 2025-02-28 07:15 | Outpatient (BNV) | payer OTHER, SELFPAY | PROVIDERS: Admitting Provider Physician Assistant; PCP Internal Medicine; Visit Provider Nurse Practitioner Family | DX: I10 Essential (primary) hypertension (principal) | CPT/HCPCS: 99222 ==

== ENCOUNTER 2025-03-16 15:01 | Outpatient (AMB) | payer OTHER, SELFPAY ==
--- OUTSIDE RECORDS SUMMARY | 2025-03-16 15:05 | XMS_ITS | Patient Health Record ---
Author Organization [facility] Address [address] [place] [address] Care Team Providers Care Energy Analyst Name Role Phone PRINCESS BRANTLEY Primary Care Provider Eligio Jordan Jr [phone] Allergies Allergen (clinical drug ingredient) Drug/Non Drug [...] W/U Status Risk Notes Problem Screening colonoscopy (427430388) Encounter for screening colonoscopy (Z12.11) Active confirmed Problem Pre-procedure evaluation check (762037593) Encounter for other preprocedural examination (Z01.818) Active confirmed Problem [id number] Gastroesophageal reflux disease without esophagitis (K21.9) Active confirmed Problem Personal history of adenomatous and serrated colon polyps (Z86.0101) Active confirmed Vital Signs Temperature 97.7 degrees Fahrenheit 12/21/2024 Blood pressure diastolic 01 mm Hg 12/21/2024 Height 67.5 in 12/21/2024 Blood pressure systolic 001 mm Hg 12/21/2024 Weight 281.4 lbs 12/21/2024 BMI 43.42 kg/m2 12/21/2024 Encounters Encounter Location Date Provider Diagnosis [facility] [address] [place] [address] 12/21/2024 Eligio Guillen Jr Encounter for screening colonoscopy Z12.11 ; Encounter for other preprocedural examination Z01.818 and Personal history of adenomatous and serrated colon polyps Z86.0101 [facility] [address] [place] [address] 12/27/2024 Eligio Guillen Jr Assessments Encounter Date [...] Provider Name:Eligio chase Jr, 05/23/2025 07:30:00 AM, [address] [place] [address] , [place], [place], [id number], Insurance Providers Payer Name Payer Address Payer Phone Subscriber Number Group Number Insured Name Patient Relationship to Insured Coverage Start Date Coverage End Date [facility] [address] [place] [phone] [id number] [employer] Self - patient is the insured Medical (General) History Medical History History ICD Code elevated cholesterol arthritis involving the back and hip Denies NM,DM,CVA,Lung disease,renal dise ase sleep apnea-cpap machine Surgical History Surgery Date(Month/Year) left knee replacement right hip replacement skin cancer abd removed right knee replacement on 10/10/13 vasectomy carpal tunnel bilateral deviated septum repair back surgery
--- OUTSIDE RECORDS SUMMARY | 2025-03-16 15:06 | XMS_ITS | Clinical Summary ---
Author Organization [facility] Address [address] [place] [address] Phone Care Team Providers Care Neighborhood Aide Name Role Phone Tom Saeed MD Primary Care Provider +1- [phone] Allergies Active Allergy Reactions Criticality Noted Date Comments Morphine 10/26/2021 Medications rosuvastatin (CRESTOR) 10 MG tablet Take 10 mg by mouth daily. Active ciprofloxacin HCl (CILOXAN) 0.3 % ophthalmic solution Administer 1 drop, every 2 hours, while awake, for 2 days. Then 1 drop, every 4 hours, while awake, for the next 5 days. Left eye 5 mL Active Active Problems Problem Noted Date Diagnosed Date Gastroesophageal reflux disease without esophagi tis 12/14/2023 Colon cancer screening 12/14/2023 Encounters Date Type Department Care Team Description 02/24/2025 Transcribe Orders [facility] [address] [place] [address] Palmira Glass Encounter for rehabilitation (Primary Dx) 01/30/2025 Orders Only [facility] [address] [place] [id number] Homehealth, Interface ProviderMD from Last 3 Months Immunizations Immunization Administration Dates Next Due Td (adult),2 Lf Tetanus Toxoid, PF, Adsorbed Social History Tobacco Use Types Packs/Day Years Used Date Smoking Tobacco: Never Smokeless Tobacco: Never Tobacco Cessation:Counseling Given: Not Answered Education Answer Date Recorded Are you interested in more education? Not on koby e 12/05/2022 Are you concerned about learning? Not on file 12/05/2022 No 12/05/2022 No 12/05/2022 Digital Access Answer Date Recorded No 01/03/2023 No 01/03/2023 Reliable internet access at home? Not on file 01/03/2023 Device with a working camera? Not on file Sex and Gender Information Value Date Recorded Sex Assigned at Not on file Legal Sex Male 9:46 PM EDT Gender Identity Not on file Sexual Orientation Not on file Last Filed Vital Signs Vital Sign Reading Time Taken Comments Blood Pressure 148/89 12/14/2023 9:03 AM EDT Pulse 76 12/14/2023 8:42 AM EDT Temperature 36.6 C (97.9 F) 12/14/2023 8:42 AM EDT Respiratory Rate 18 12/14/2023 8:42 AM EDT Oxygen Saturation 97% 12/14/2023 8:42 AM EDT Inhaled Oxygen Concentration - - Weight 117.9 kg (260 lb) 10/26/2021 9:46 AM EDT Height 172.7 cm (5' 8 ) 10/26/2021 9:46 AM EDT Body Mass Index 39.53 10/26/2021 9:46 AM EDT Plan of Treatment Upcoming Encounters Date Type Department Care Team (Late st Contact Info) Description 03/20/2025 12:45 PM EDT Office Visit [address] [address] Penelope Mehta PA [address] [place] [address] Palmira Lazo, PT [address] [place] [address] [email or web address] 03/22/2025 12:45 PM EDT Office Visit [address] [address] Penelope Mehta PA [address] [place] [address] Palmira Lazo, PT [address] [place] [address] [email or web address] 04/03/2025 12:45 PM EDT Office Visit [facility] [address] [place] [address] Penelope Mehta PA [address] [place] [address] Palmira Lazo, PT [address] [place] [address] [email or web address] 04/05/2025 12:45 PM EDT Office Visit [address] [address] Penelope Mehta PA [address] [place] [address] Palmira Lazo, PT [address] [place] [address] [email or web address] 04/11/2025 12:45 PM EDT Office Visit [address] [address] Penelope Mehta PA [address] [place] [address] Palmira Lazo, PT [address] [place] [address] [email or web address] 04/13/2025 12:45 PM EDT Office Visit [address] [address] Penelope Mehta PA [address] [place] [address] Palmira Lazo, PT [address] [place] [address] [email or web address] 04/17/2025 12:45 PM EDT Office Visit [facility] [address] [place] [address] Penelope Mehta PA [address] [place] [address] Palmira Lazo, PT [address] [place] [address] [email or web address] 04/20/2025 11:30 AM EDT Office Visit [address] [address] Penelope Mehta PA [address] [place] [address] Palmira Lazo, PT [address] [place] [address] [email or web address] 04/24/2025 12:45 PM EDT Office Visit [address] [address] Penelope Mehta PA [address] [place] [address] Palmira Lazo, PT [address] [place] [address] [email or web address] 04/26/2025 11:30 AM EDT Office Visit [address] [address] Penelope Mehta PA [address] [place] [address] Palmira Lazo, PT [address] [place] [address] [email or web address] 05/01/2025 11:30 AM EDT Office Visit [facility] [address] [place] [address] Penelope Mehta PA [address] [place] [address] Palmira Lazo, PT [address] [place] [address] [email or web address] 05/04/2025 12:45 PM EDT Office Visit [facility] [address] [place] [address] Penelope Mehta PA [address] [place] [address] Palmira Lazo, PT [address] [place] [address] [email or web address] 05/08/2025 11:30 AM EDT Office Visit [address] [address] Penelope Mehta PA [address] [place] [address] Palmira Lazo, PT [address] [place] [address] [email or web address] 05/10/2025 11:30 AM EDT Office Visit [address] [address] Penelope Mehta PA [address] [place] [address] Palmira Lazo, PT [address] [place] [address] [email or web address] Health Maintenance Due Date Last Done Comments LIPID PANEL 1961 DEPRESSION SCREENING 1973 HEPATITIS C SCREENING 1979 HIV ONE-TIME SCREENING (18-6 5 YEARS) 1979 COLOGUARD 2006 COLONOSCOPY 2006 COLORECTAL CANCER SCREENING 2006 FIT TEST 2006 FOBT 2006 SIGMOIDOSCOPY 2006 VIRTUAL COLONOSCOPY 2006 PNEUMOCOCCAL VACCINES (50+ years) (1 of 1 - PCV) 2011 ZOSTER VACCINES (1 of 2) 2011 COVID-19 VACCINE ( - 2023-2 5 season) 2024 08/18/2021, 02/06/2021, 01/16/2021 Adult Td,Tdap Booster 08/07/2026 08/07/2016 RSV VACCINE (1 - 1-dose 75+ series) 2036 SMOKING STATUS SCREENING (On ce After 26 Yrs) Completed 12/14/2023 HEPATITIS A VACCINES Aged Out No long er eligible based on patient's age to complete this topic HIB VACCINES Aged Out No longer eligi ble based on patient's age to complete this topic MENINGOCOCCAL VACCINES (ACWY) Aged Out No longer eligible based on patient's age to complete this topic MENINGOCOCCAL VACCINES (B) Aged Out N o longer eligible based on patient's age to complete this topic Medical Devices Not on file Insurance [facility] HMO [facility] [place] [address] [place], [place] [address]O [facility] [address] [place], [place] [address] [place], [place] [address]O [facility] HMO Care Teams Neighborhood Aide Relationship Specialty Start Date End Date Tom Saeed MD [address] [place] [address] PCP - General Internal Medicine 08/12/19 Additional Source Comments The information contained in this document represents components of the legal health record. It is not the complete legal health record.[facility]
--- NOTE | 2025-03-16 15:08 | MHC.OFFVIS ---
Intake Visit Reasons: 2WKPO: L TKA w/NE 02/28/25 Intake Note: Aquilino is a 64 year old male who presents today for a post operative visit after undergoing a left total knee arthroplasty on 02/28/[address] Gonzalez. Patient reports he is doing well, stating his pain has been tolerable. He states no pain after Thursday. Allergies morphine Allergy (Intermediate, Verified 03/16/25 15:27) respiratory rate dropped seasonal Allergy (Intermediate, Uncoded 03/16/25 15:27) nasal congestion, affects hearing HPI HPI 2WKPO: L TKA w/NE 02/28/25: Details: 64 yo male returns to the office today s/p LT TKA 02/28/25 with NE. Patient states he is doing well working with physical therapy. He has discontinued ambulatory devices. 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 Mother No problems noted. 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 Range of motion is 0-95 degrees calf supple and nontender neurovascularly intact. Assessment & Plan Assessment & Plan (1) Status post total left knee replacement: Code(s): Z96.652 - Presence of left artificial knee joint Category: Surgical Plan: [place] removed Steri-Strips applied. He will continue to work with physical therapy and transition to outpatient physical therapy. He will continue his anticoagulant for another 4 weeks. He will see us back in [address] Gonzalez, sooner if needed. Coding Level of Care Code Global (75336) Diagnoses Status post total left knee replacement Z96.652
== END 2025-03-16 15:47 | disposition home or self-care (01) ==
LOC: HO.HOS 15:02
PROVIDERS: PCP Internal Medicine; Visit Provider Physician Assistant
DX: Z96.652 Presence of left artificial knee joint (principal)
CPT/HCPCS: 99024

== ENCOUNTER 2025-04-06 11:45 | Outpatient (REF) | payer OTHER, SELFPAY ==
--- OUTSIDE RECORDS SUMMARY | 2025-04-03 12:45 | XMS_ITS | Encounter Summary ---
Author Organization [facility] Address [address] [place] [address] Phone Care Team Providers Care Sales Professional Bilingual Name Role Phone Tom Saeed MD Primary Care Provider +1- [phone] Reason for Visit * Physical Therapy (Within 2 weeks) - Authorized Specialty Diagnoses / Procedures Referred By Contac t Referred To Contact Physical Therapy Diagnoses -S/PLeft TKA Penelope Mehta PA [address] [place] [address] Phone: tel: fax: [address] [address] Phone: tel: Referral ID Status Reason Start Date Expiration Date V isits Requested Visits Authorized [id number] Authorized 02/24/2025 02/06/2026 60 60 Encounter Details Date Type Department Care Team (Latest Contact Info) Description 04/03/2025 12:45 PM EDT Office Visit [facility] [address] [place] [address] Penelope Mehta PA [address] [place] [address] Palmira Lazo, PT [address] [place] [address] [email or web address] Acute postoperative pain of left knee (Primary Dx) Social History Tobacco Use Types Packs/Day Years Used Date Smoking Tobacco: Never Smokeless Tobacco: Never Education Answer Date Recorded Are you interested [...] on file Sexual Orientation Not on file documented as of this encounter Progress Notes * Palmira Lazo, PT - 04/03/2025 12:45 PM EDT Subject Line: Treatment Note Physical Therapy Treatment Note Patient Name: Aquilino Feliciano Date of : 1960 Referring MD: Penelope Mehta PA [address] [place] [address] [address] [place] [address] Evaluation Date: SOC Date: 03/20/25 Diagnosis: Acute postoperative pain of left knee [G89.18, M25.562] Precautions/ Safety: none This patient has attended 4 visits since the onset Physical Therapy. SUBJECTIVE: Pt reports L knee discomfort at night at L medial knee is improving. Pt states he has less swellingtoday. Pt would like to go to the gym to do some light work outs. OBJECTIVE: Range of Motion: Lower Extremity ROM- EVAL 03/20/25 KNEE AROM Right Left Flexion 130 110 Extension 0 -6 Treatment Interventions: See encounter report for minutes associated with each intervention. Therapeutic Exercise: Recumbent bike 5 mins L=1-4 Stretching 30 sec x 3 ea: standing gastroc, standing quad, seated hamstring Step ups L on step 10x Lateral step downs L on step 20x Forward step downs L on 6 step 10x Total gym B leg press 10x L=22 Total gym B heel raises 10x L=22 Total gym U leg press 10x ea L=18 Total gym U heel raises 10x ea L=18 Total gym B ham curls 10x L=5 Manual Therapy: L patellar mobs STM L posterior knee/ gastroc/ hamstring Home Exercise Program: Stretching 30 sec x 3 ea: standing gastroc, standing quad, seated hamstring U heel raises Standing ham curls SLR Sidelying hip abd Prone hip ext Bridging Wall slides Sit to stand Sidestepping (will add bands) Step ups/ lateral downs/ progress to forward step downs Not Performed Today but will be used in future visits: L heel raises 10x Standing L ham curls 10x L SLR 10x Sidelying L hip abd 10x Prone L hip ext 10x Bridging 10x Wall slides 10x Sidestepping with GTB 15' each way Retrograde edema massage L lower leg/ knee ASSESSMENT: Pt performed therex with good form with min cues. Much improvement in L knee extension during therex and walking. PLAN: Continue POC- manual therapy and modalities as needed, stretching, ROM, strengthening, gait, functional activities [place], [place] [id number] documented in this encounter Plan of Treatment Upcoming Encounters Date Type Department Care Team (Late st Contact Info) Description 04/11/2025 12:45 PM EDT Office Visit [address] [address] Penelope Mehta PA [address] [place] [address] Palmira Lazo, PT [address] [place] [address] [email or web address] 04/13/2025 12:45 PM EDT Office Visit [address] [address] Penelope Mehta PA [address] [place] [address] Palmira Lazo, PT [address] [place] [address] [email or web address] 04/17/2025 12:45 PM EDT Office Visit [address] [address] Penelope Mehta PA [address] [place] [address] Palmira Lazo, PT [address] [place] [address] [email or web address] 04/20/2025 11:30 AM EDT Office Visit [address] [address] Penelope Mehta PA [address] [place] [address] Palmira Lazo, PT [address] [place] [address] [email or web address] 04/24/2025 12:45 PM EDT Office Visit [address] [address] Penelope Mehta PA [address] [place] [address] Palmira Lazo, PT [address] [place] [address] [email or web address] 04/26/2025 11:30 AM EDT Office Visit [address] [address] Penelope Mehta PA [address] [place] [address] Palmira Lazo, PT [address] [place] [address] [email or web address] 05/01/2025 11:30 AM EDT Office Visit [address] [address] Penelope Mehta PA [address] [place] [address] Palmira Lazo, PT [address] [place] [address] [email or web address] 05/04/2025 12:45 PM EDT Office Visit [facility] [address] [place] [address] Penelope Mehta PA [address] [place] [address] Palmira Lazo, PT [address] [place] [address] [email or web address] 05/08/2025 11:30 AM EDT Office Visit [address] [address] Penelope Mehta PA [address] [place] [address] Palmira Lazo, PT [address] [place] [address] [email or web address] 05/10/2025 11:30 AM EDT Office Visit [address] [address] Penelope Mehta PA [address] [place] [address] Palmira Lazo, PT [address] [place] [address] [email or web address] documented as of this encounter Visit Diagnoses Diagnosis Acute postoperative pain of left knee- Primary documented in this encounter Care Teams Sales Professional Bilingual Relationship Specialty Start Date End Date Tom Saeed MD [address] [place] [address] PCP - General Internal Medicine 08/12/19 documented as of this encounter Additional Source Comments The information contained in this document represents components of the legal health record. It is not the complete legal health record.[facility]
--- OUTSIDE RECORDS SUMMARY | 2025-04-05 12:45 | XMS_ITS | Encounter Summary ---
Author Organization [facility] Address [address] [place] [address] Phone Care Team Providers Care Commercial Manager Name Role Phone Tom Saeed MD Primary Care Provider [phone]- [phone] Reason for Visit * Physical Therapy (Within 2 weeks) - Authorized Specialty Diagnoses / Procedures Referred By Contac t Referred To Contact Physical Therapy Diagnoses -S/PLeft TKA Penelope Mehta PA [address] [place] [address] Phone: tel: fax: [address] [address] Phone: tel: Referral ID Status Reason Start Date Expiration Date V isits Requested Visits Authorized [id number] Authorized 02/24/2025 02/06/2026 60 60 Encounter Details Date Type Department Care Team (Latest Contact Info) Description 04/05/2025 12:45 PM EDT Office Visit [facility] [address] [place] [address] Penelope Mehta PA [address] [place] [address] Palmira Lazo, PT [address] [place] [address] [email or web address] Acute postoperative pain of left [...] Progress Notes * Palmira Lazo, PT - 04/05/2025 12:45 PM EDT Subject Line: Treatment Note Physical Therapy Treatment Note Patient Name: Aquilino Feliciano Date of : 1960 Referring MD: Penelope Mehta PA [address] [place] [address] [address] [place] [address] Evaluation Date: SOC Date: 03/20/25 Diagnosis: Acute postoperative pain of left knee [G89.18, M25.562] Precautions/ Safety: none This patient has attended 5 visits since the onset Physical Therapy. SUBJECTIVE: Pt reports L medial knee discomfort at night. Pt is still considering going to the gym. OBJECTIVE: Range of Motion: Lower Extremity ROM- 04/05/25 KNEE AROM PROM Right Left Left Flexion 130 125 130 Extension 0 0 0 Strength: Lower Extremity Strength MMT- 04/05/25 HIP Right Left Flexion 5/5 4+/5 Extension 5/5 5/5 Abduction 5/5 5/5 Internal Rotation 5/5 5/5 External Rotation 5/5 5/5 KNEE Right Left Flexion 5/5 4+/5 Extension 5/5 4+/5 ANKLE Right Left Dorsiflexion 5/5 5/5 Plantarflexion 5/5 4/5 Inversion 5/5 5/5 Eversion 5/5 5/5 Range of Motion: Lower Extremity ROM- EVAL 03/20/25 KNEE AROM Right Left Flexion 130 110 Extension 0 -6 Treatment Interventions: See encounter report for minutes associated with each intervention. Therapeutic Exercise: Recumbent bike 5 mins L=1-4 Stretching 30 sec x 3 ea: standing gastroc, standing quad, seated hamstring Total gym B leg press 10x L=23 Total gym B heel raises 10x L=23 Total gym U leg press 10x ea L=20 Total gym U heel raises 10x ea L=20 Total gym B ham curls 10x L=5 [...] Retrograde edema massage L lower leg/ knee Step ups L on step 10x Lateral step downs L on step 20x Forward step downs L on 6 step 10x ASSESSMENT: Pt performed therex with good form with min cues. L knee ROM and LE strength greatly improved. Pt continues with L knee swelling and pain at night, intermittent antalgic gait especially when he firststands up. PLAN: Continue POC- manual therapy and modalities as needed, stretching, ROM, strengthening, gait, functional activities Palmira Lazo, [place] [id number] documented in this encounter Plan of Treatment Upcoming Encounters Date Type Department Care Team (Late st Contact Info) Description 04/11/2025 12:45 PM EDT Office Visit [address] [address] Penelope Mehta PA [address] [place] [address] Palmira Lazo, PT [address] [place] [address] [email or web address] 04/13/2025 12:45 PM EDT Office Visit [address] [address] Penelope Mehta PA [address] [place] [address] Palmira Lazo, PT [address] [place] [address] [email or web address] 04/17/2025 12:45 PM EDT Office Visit [address] [address] Penelope Mehta PA [address] [place] [address] Palmira Lazo, PT [address] [place] [address] [email or web address] 04/20/2025 11:30 AM EDT Office Visit [address] [address] Penelope Mehta PA [address] [place] [address] Palmira Lazo, PT 10 [place] [address] [email or web address] 04/24/2025 12:45 PM EDT Office Visit [address] [address] Penelope Mehta PA [address] [place] [address] Palmira Lazo, PT [address] [place] [address] [email or web address] 04/26/2025 11:30 AM EDT Office Visit [address] [address] Penelope eMhta PA [address] [place] [address] Palmira Lazo, PT 10 [place] [address] [email or web address] 05/01/2025 11:30 AM EDT Office Visit [address] [address] Penelope Mehta PA [address] [place] [address] Palmira Lazo, PT [address] [place] [address] [email or web address] 05/04/2025 12:45 PM EDT Office Visit [address] [address] Penelope Mehta PA [address] [place] [address] Palmira Lazo, PT [address] [place] [address] [email or web address] 05/08/2025 11:30 AM EDT Office Visit [address] [address] Penelope Mehta PA [address] [place] [address] Palmira Lazo, PT 10 [place] [address] [email or web address] 05/10/2025 11:30 AM EDT Office Visit [address] [address] Penelope Mehta PA [address] [place] [address] Palmira Lazo, PT [address] [place] [address] [email or web address] documented as of this encounter Visit Diagnoses Diagnosis Acute postoperative pain of left knee- Primary documented in this encounter Care Teams Commercial Manager Relationship Specialty Start Date End Date Tom Saeed MD [address] [place] [address] PCP - General Internal Medicine 08/12/19 documented as of this encounter Additional Source Comments The information contained in this document represents components of the legal health record. It is not the complete legal health record.[facility]
--- NOTE | ~2025-04-06 | XR_ITS ---
EXAMINATION: XR KNEE, LEFT CLINICAL INFORMATION: M25.562 - Pain in left knee COMPARISON: Left knee February 28, 2025 and September 12, 2024 TECHNIQUE: Three views of the left knee. FINDINGS: Total knee arthroplasty has been performed bilaterally. Since the prior, there is decreased bone density medial and lateral to the femoral component likely from stress showing. There is anatomic alignment. There is a joint effusion. There are 2 globular ossific densities medial and posterior to the tibial plateau. These were present on the prior immediately post op and preoperative x-ray. Total knee arthroplasty on the right. There is a transversely oriented lucency through the patellar component centrally that extends to the lateral margin that was visible on the prior. XR/XR knee LT 3V IMPRESSION: Left total knee arthroplasty. There is decreasing bone density medial and lateral to the femoral component probably related to stress shielding. Right knee arthroplasty with suspected crack involving the patellar component. There is lucency extending from the central region to the lateral margin. Electronically signed by: Ha Reis MD 04/06/2025 02:01 PM EDT
--- OUTSIDE RECORDS SUMMARY | 2025-04-06 12:57 | XMS_ITS | Clinical Summary ---
Author Organization [facility] Address [address] [place] [address] Phone Care Team Providers Care Vessel Liner Name Role Phone Tom Saeed MD Primary Care Provider +1- [phone] Allergies Active Allergy Reactions Criticality Noted Date [...] Encounters Date Type Department Care Team Description 04/05/2025 12:45 PM EDT Office Visit [address] [address] Penelope Mehta PA Menard-Johnston, Erin, PT Acute postoperative pain of left knee (Primary Dx) 04/03/2025 12:45 PM EDT Office Visit [address] [address] Penelope Mehta PA Menard-Johnston, Erin, PT Acute postoperative pain of left knee (Primary Dx) 03/28/2025 9:15 AM EDT Office Visit [address] [address] Penelope Mehta PA Menard-Johnston, Erin, PT Acute postoperative pain of left knee (Primary Dx) 03/22/2025 12:45 PM EDT Office Visit [address] [address] Penelope Mehta PA Menard-Johnston, Erin, PT Acute postoperative pain of left knee (Primary Dx) 03/20/2025 12:45 PM EDT Office Visit [address] [address] Penelope Mehta PA Menard-Johnston, Palmira, PT Acute postoperative pain of left knee (Primary Dx) 02/24/2025 Transcribe Orders [facility] [address] [place] [address] Palmira Glass Encounter for rehabilitation (Primary Dx) 01/30/2025 Orders Only [facility] [address] [place] [id number] Homehealth, Interface ProviderMD from Last 3 Months [...] Description 04/11/2025 12:45 PM EDT Office Visit [address] [address] Penelope Mehta PA [address] [place] [address] Palmira Lazo, PT [address] [place] [address] [email or web address] 04/13/2025 12:45 PM EDT Office Visit [address] [address] Penelope Mehta PA [address] [place] [address] Palmira Lazo, PT [address] [place] [address] [email or web address] 04/17/2025 12:45 PM EDT Office Visit [address] [address] Penelope Mehta PA [address] [place] [address] Palmira Lazo, PT [address] [place] [address] [email or web address] 04/20/2025 11:30 AM EDT Office Visit [facility] [address] [place] [address] Penelope Mehta PA [address] [place] [address] Palmira Lazo, PT [address] [place] [address] [email or web address] 04/24/2025 12:45 PM EDT Office Visit [facility] [address] [place] [address] Penelope Mehta PA [address] [place] [address] Palmira Lazo, PT [address] [place] [address] [email or web address] 04/26/2025 11:30 AM EDT Office Visit [facility] [address] [place] [address] Penelope Mehta PA [address] [place] [address] Palmira Lazo, PT [address] [place] [address] [email or web address] 05/01/2025 11:30 AM EDT Office Visit [address] [address] Penelope Mehta PA [address] [place] [address] Palmira Lazo, PT [address] [place] [address] [email or web address] 05/04/2025 12:45 PM EDT Office Visit [facility] [address] [place] [address] Penelope Mehta PA [address] [place] [address] Palmira Lazo, PT [address] [place] [address] [email or web address] 05/08/2025 11:30 AM EDT Office Visit [facility] [address] [place] [address] Penelope Mehta PA [address] [place] [address] Palmira Lazo, PT [address] [place] [address] [email or web address] 05/10/2025 11:30 AM EDT Office Visit [facility] [address] [place] [address] Penelope Mehta PA [address] [place] [address] Palmira Lazo, PT [address] [place] [address] [email or web address] Health Maintenance Due Date Last Done Comments LIPID PANEL 1960 DEPRESSION SCREENING 1973 HEPATITIS C SCREENING 1979 HIV ONE-TIME SCREENING (18-6 5 YEARS) 1979 COLOGUARD 2006 COLONOSCOPY 2006 COLORECTAL CANCER SCREENING 2006 FIT TEST 2006 FOBT 2006 SIGMOIDOSCOPY 2006 VIRTUAL COLONOSCOPY 2006 PNEUMOCOCCAL VACCINES (50+ years) (1 of 1 - PCV) 2011 ZOSTER VACCINES (1 of 2) 2011 COVID-19 VACCINE (2023-2 5 season) 2024 08/18/2021, 02/06/2021, 01/16/2021 Adult [...] topic Medical Devices Not on file Insurance O O [facility] [address] [place], [place] [address]O [facility] [address] [place], [place] [address] [place], [place] [address]O [facility] HMO Care Teams Vessel Liner Relationship Specialty Start Date End Date Tom Saeed MD [address] [place] [address] PCP - General Internal Medicine 08/12/19 Additional Source Comments The information contained in this document represents components of the legal health record. It is not the complete legal health record.[facility]
--- OUTSIDE RECORDS SUMMARY | 2025-04-06 12:57 | XMS_ITS | Patient Health Record ---
Author Organization [facility] Address [address] [place] [address] Care Team Providers Care Director Of Retail Marketing Name Role Phone PRINCESS BRANTLEY Primary Care [...] W/U Status Risk Notes Problem Screening colonoscopy ([id number]) Encounter for screening colonoscopy (Z12.11) Active confirmed Problem Pre-procedure evaluation check ([id number]) Encounter for other preprocedural examination (Z01.818) Active confirmed Problem [id number] Gastroesophageal reflux disease without esophagitis (K21.9) Active confirmed Problem Personal history of adenomatous and serrated colon polyps (Z86.0101) Active confirmed Vital Signs Temperature 97.7 degrees Fahrenheit 12/21/2024 Blood pressure diastolic 01 mm Hg 12/21/2024 Height 67.5 in 12/21/2024 Blood pressure systolic 001 mm Hg 12/21/2024 Weight 281.4 lbs 12/21/2024 BMI 43.42 kg/m2 12/21/2024 Encounters Encounter Location Date Provider Diagnosis [facility] [address] [place] [address] 12/21/2024 Eligio Guillen Jr Encounter for screening colonoscopy Z12.11 ; Encounter for other preprocedural examination Z01.818 and Personal history of adenomatous and serrated colon polyps Z86.0101 [facility] [address] [place] [address] 12/27/2024 Eligio Guillen Jr Assessments Encounter Date [...] Provider Name:Eligio chase Jr, 05/23/2025 07:30:00 AM, [address] [place] [address] , [place], [place], [phone], Insurance Providers Payer Name Payer Address Payer Phone Subscriber Number Group Number Insured Name Patient Relationship to Insured Coverage Start Date Coverage End Date [facility] [address] [place] [address] [phone] [id number] ANTIONETTE STRANGE Self - patient is the insured Medical (General) History Medical History History ICD Code elevated cholesterol arthritis involving the back and hip Denies NV,DM,CVA,Lung disease,renal dise ase sleep apnea-cpap machine Surgical History Surgery Date(Month/Year) left knee replacement right hip replacement skin cancer abd removed right knee replacement on 10/10/13 vasectomy carpal tunnel bilateral deviated septum repair back surgery
== END 2025-04-06 11:46 | disposition home or self-care (01) ==
LOC: HO.HOSX 11:45
PROVIDERS: Visit Provider Orthopaedic Surgery
DX: Z47.1 Aftercare following joint replacement surgery (principal); M25.562 Pain in left knee; Z96.652 Presence of left artificial knee joint
CPT/HCPCS: 73562

== ENCOUNTER 2025-04-06 12:11 | Outpatient (AMB) | payer OTHER, SELFPAY ==
--- NOTE | 2025-04-06 12:30 | A.OFFVIS_ITS ---
Intake Visit Reasons: 6WKPO: L TKA w/NE 02/28/25 Intake Note: Aquilino is a 64 year old male who presents today for a post operative visit about 6 weeks s/p left total knee arthroplasty on 02/28/25. He is attending outpatient physical therapy at [facility]. Patient reports that he is doing well, he has no pain and has not had pain since the first week. He is asking to return to return to work sooner, he is asking to return to work on May 08. 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 Allergies morphine Allergy (Intermediate, Verified 03/16/25 15:27) respiratory rate dropped seasonal Allergy (Intermediate, Uncoded 03/16/25 15:27) nasal congestion, affects hearing HPI HPI 6WKPO: L TKA w/NE 02/28/25: Details: Aquilino is a 64 year old male who presents today for a post operative visit about 6 weeks s/p left total knee arthroplasty on 02/28/25. He is attending outpatient physical therapy at [facility]. Patient reports that he is doing well, he has no pain and has not had pain since the first week. He is asking to return to return to work sooner, he is asking to return to work on May 08. 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 Mother No problems noted. 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 0-125 degrees of motion. Stable to varus and valgus stress. Walking comfortably. Results Reviewed Results Reviewed: I personally reviewed relevant radiographs. Left total knee arthroplasty in expected post operative position with no hardware complications or evidence of loosening Assessment & Plan Assessment & Plan (1) Status post total left knee replacement: Code(s): Z96.652 - Presence of left artificial knee joint Category: Surgical Plan: Aquilino is doing well 5 weeks status post left knee replacement. He is doing extremely well. At this point I think it is reasonable that he returned to work and another 5 weeks. I would like to see him back in 4 weeks and we will give him the formal okay to proceed forward but he is doing exceptionally well and I see no reason why he will not be able to return to work. In the meantime we reviewed his aspirin prophylaxis and exercises and recommend that he continue both of these and see me in 4 weeks. Orders: Orders XR knee LT 3V 04/06/25 M25.562 - Pain in left knee Coding Level of Care Code Global (66030) Diagnoses Status post total left knee replacement Z96.652
== END 2025-04-06 13:13 | disposition home or self-care (01) ==
LOC: HO.HOS 12:11
PROVIDERS: PCP Internal Medicine; Visit Provider Orthopaedic Surgery
DX: Z96.652 Presence of left artificial knee joint (principal)
CPT/HCPCS: 99024

== ENCOUNTER → 2025-04-06 12:21 | Outpatient (BNV) | payer OTHER, SELFPAY | PROVIDERS: Visit Provider Radiology Diagnostic Radiology | DX: M25.562 Pain in left knee (principal); Z96.652 Presence of left artificial knee joint | CPT/HCPCS: 73562 ==

== ENCOUNTER 2025-05-08 11:40 | Outpatient (AMB) | payer OTHER, SELFPAY ==
--- OUTSIDE RECORDS SUMMARY | 2025-05-05 04:10 | XMS_ITS ---
Author Organization [facility] Address [address] [place] [address] Care Team Providers Care Capsule Maker Name Role Phone PRINCESS BRANTLEY Primary Care Provider Hardeep Guillen Jr, Eligio Rahman REASON FOR VISIT screening Encounters Encounter Location Date Provider Diagnosis [facility] [address] [place] [phone] 05/05/2025 Eligio Guillen Jr Plan Of Treatment Next Appt Details Provider Name:Eligio chase Jr, 05/23/2025 07:30:00 AM, [address] [place] [address], [phone], Progress Notes * ANTIONETTE STRANGEDOB:1960 (64 yo M)Acc No.[id number]:05/05/2025 COLON WITH MAC Patient: ANTIONETTE PRADHAN Provider: Marleni Guillen MD :1960 A ge:64 Y S ex:Male Date:05/05/2025 Address:[address] [place] [address] Pcp:PRINCESS BRANTLEY Subjective: * Chief Complaints: * 1 . Screening. * Medical History: Objective: * Vitals: Assessment: Plan: * Treatment: * * The named appointment provid er may or may not be the originator of this progress note, and it is not deemed complete until electronically signed by the appointment provider. Sign off status: Pending * Provider: Marleni Guillen MD Date: 0 05/05/2025 Generated for Donald perez/Jose/Yolette on: 0 05/08/2025 01:09 PM EDT
--- NOTE | 2025-05-08 11:42 | A.OFFVIS_ITS ---
Intake Visit Reasons: PO: L TKA w/NE 02/28/25 per NE Intake Note: Aquilino is a 64 year old male who presents today for a post operative visit about 6 weeks s/p left total knee arthroplasty on 02/28/25. Hehas been discharged from outpatient physical therapy at [facility] in [place]. 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 Patient reorts that he is doing well with no concerns. Allergies morphine Allergy (Intermediate, Verified 03/16/25 15:27) respiratory rate dropped seasonal Allergy (Intermediate, Uncoded 03/16/25 15:27) nasal congestion, affects hearing HPI HPI PO: L TKA w/NE 02/28/25 per NE: Details: Aquilino is a 64 year old male who presents today for a post operative visit about 6 weeks s/p left total knee arthroplasty on 02/28/25. Hehas been discharged from outpatient physical therapy at [facility] in [place]. 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 Patient reorts that he is doing well with no concerns. 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 Mother No problems noted. 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 Continue activity as tolerated. May return to work. Follow up 9 months. Dental prophylaxis discussed. Coding Level of Care Code Global (34836) Diagnoses Status post total left knee replacement Z96.652
--- OUTSIDE RECORDS SUMMARY | 2025-05-08 13:09 | XMS_ITS | Clinical Summary ---
Author Organization [facility] Address [address] [place] [id number] Phone Care Team Providers Care Maintenance Planner Name Role Phone Tom Saeed MD Primary Care Provider [phone]- [phone] Allergies Active Allergy Reactions Criticality Noted Date [...] Encounters Date Type Department Care Team Description 04/20/2025 11:30 AM EDT Office Visit [address] [address] Penelope Mehta PA Menard-Johns ton, Erin, PT Acute postoperative pain of left knee (Primary Dx) 04/11/2025 12:45 PM EDT Office Visit [address] [address] Penelope Mehta PA Menard-Johns ton, Erin, PT Acute postoperative pain of left knee (Primary Dx) 04/05/2025 12:45 PM EDT Office Visit [address] [address] Penelope Mehta, ALFONZO Barajas ton, [place], PT Acute postoperative pain of left knee (Primary Dx) 04/03/2025 12:45 PM EDT Office Visit [address] [address] Penelope Mehta, ALFONZO Barajas ton, [place], PT Acute postoperative pain of left knee (Primary Dx) 03/28/2025 9:15 AM EDT Office Visit [address] [address] Penelope Mehta, ALFONZO Barajas ton, [place], PT Acute postoperative pain of left knee (Primary Dx) 03/22/2025 12:45 PM EDT Office Visit [address] [address] Penelope Mehta, ALFONZO Barajas ton, [place], PT Acute postoperative pain of left knee (Primary Dx) 03/20/2025 12:45 PM EDT Office Visit [address] [address] Penelope Mehta, ALFONZO Barajas ton, [place], PT Acute postoperative pain of left knee (Primary Dx) 02/24/2025 Transcribe Orders [address] [place] [address] Palm[place] Glass Encounter for rehabilitation (Primary Dx) from Last 3 Months Immunizations Immunization Administration [...] 10/26/2021 9:46 AM EDT Plan of Treatment Health Maintenance Due Date Last Done Comments LIPID PANEL 1961 DEPRESSION SCREENING 1973 HEPATITIS C SCREENING 1979 HIV ONE-TIME SCREENING (18-6 5 YEARS) 1979 COLOGUARD 2006 COLONOSCOPY 2006 COLORECTAL CANCER SCREENING 2006 FIT TEST 2006 FOBT 2006 SIGMOIDOSCOPY 2006 VIRTUAL COLONOSCOPY 2006 PNEUMOCOCCAL VACCINES (50+ years) (1 of 1 - PCV) 2011 ZOSTER VACCINES (1 of 2) 2011 INFLUENZA VACCINE (#1) 2025 COVID-19 VACCINE (4 - 2024-2 6 season) 2025 08/18/2021, 02/06/2021, 01/16/2021 Adult Td,Tdap Booster 08/07/2026 [...] topic Medical Devices Not on file [place] [address] [place] [address] [place] [address] [place] [address] [place], [place] [address] [place], [place] [address] HMO Care Teams Maintenance Planner Relationship Specialty Start Date End Date Tom Saeed MD [address] [place] [id number] PCP - General Internal Medicine 08/12/19 Additional Source Comments The information contained in this document represents components of the legal health record. It is not the complete legal health record.[facility]
--- OUTSIDE RECORDS SUMMARY | 2025-05-08 13:09 | XMS_ITS | Patient Health Record ---
Author Organization [facility] Address [address] [place] [address] Care Team Providers Care Pipe Fittings Molder Name Role Phone PRINCESS BRANTLEY Primary Care [...] W/U Status Risk Notes Problem Screening colonoscopy (352924401) Encounter for screening colonoscopy (Z12.11) Active confirmed Problem Pre-procedure evaluation check (688066669) Encounter for other preprocedural examination (Z01.818) Active confirmed Problem 301876323 Gastroesophageal reflux disease without esophagitis (K21.9) Active confirmed Problem Personal history of adenomatous and serrated colon polyps (Z86.0101) Active confirmed Vital Signs Temperature 97.7 degrees Fahrenheit 12/21/2024 Blood pressure diastolic 01 mm Hg 12/21/2024 Height 67.5 in 12/21/2024 Blood pressure systolic 001 mm Hg 12/21/2024 Weight 281.4 lbs 12/21/2024 BMI 43.42 kg/m2 12/21/2024 Encounters Encounter Location Date Provider Diagnosis [facility] [address] [place] [address] 12/21/2024 Eligio Guillen Jr Encounter for screening colonoscopy Z12.11 ; Encounter for other preprocedural examination Z01.818 and Personal history of adenomatous and serrated colon polyps Z86.0101 [facility] [address] [place] [address] 12/27/2024 Eligio Guillen Jr Assessments Encounter Date [...] Provider Name:Eligio chase Jr, 05/23/2025 07:30:00 AM, [address] [place] [address] , [place], [place], [id number], Insurance Providers Payer Name Payer Address Payer Phone Subscriber Number Group Number Insured Name Patient Relationship to Insured Coverage Start Date Coverage End Date [facility] [address] [place] [address] [phone] [id number] [employer] Self - patient is the insured Medical (General) History Medical History History ICD Code elevated cholesterol arthritis involving the back and hip Denies CO,DM,CVA,Lung disease,renal dise ase sleep apnea-cpap machine Surgical History Surgery Date(Month/Year) left knee replacement right hip replacement skin cancer abd removed right knee replacement on 10/10/13 vasectomy carpal tunnel bilateral deviated septum repair back surgery
== END 2025-05-08 11:53 | disposition home or self-care (01) ==
LOC: HO.HOS 11:41
PROVIDERS: PCP Internal Medicine; Visit Provider Orthopaedic Surgery
DX: Z96.652 Presence of left artificial knee joint (principal)
CPT/HCPCS: 99024

== ENCOUNTER 2025-05-23 06:19 | Day surgery (SDC) | payer OTHER, SELFPAY ==
--- OUTSIDE RECORDS SUMMARY | 2025-03-31 07:59 | XMS_ITS | Patient Health Record ---
Author Organization [facility] Address [address] [place] [address] Care Team Providers Care Movement Therapist Name Role Phone PRINCESS BRANTLEY Primary Care Provider Eligio Jordan Jr Allergies Allergen (clinical drug ingredient) Drug/Non Drug [...] W/U Status Risk Notes Problem Screening colonoscopy (350861138) Encounter for screening colonoscopy (Z12.11) Active confirmed Problem Pre-procedure evaluation check (339213895) Encounter for other preprocedural examination (Z01.818) Active confirmed Problem [id number] Gastroesophageal reflux disease without esophagitis (K21.9) Active confirmed Problem Personal history of adenomatous and serrated colon polyps (Z86.0101) Active confirmed Vital Signs Temperature 97.7 degrees Fahrenheit 12/21/2024 Blood pressure diastolic 01 mm Hg 12/21/2024 Height 67.5 in 12/21/2024 Blood pressure systolic 001 mm Hg 12/21/2024 Weight 281.4 lbs 12/21/2024 BMI 43.42 kg/m2 12/21/2024 Encounters Encounter Location Date Provider Diagnosis [facility] [address] [place] [address] 12/21/2024 Eligio Guillen Jr Encounter for screening colonoscopy Z12.11 ; Encounter for other preprocedural examination Z01.818 and Personal history of adenomatous and serrated colon polyps Z86.0101 [facility] [address] [place] [address] 12/27/2024 Eligio Guillen Jr Assessments Encounter Date [...] Provider Name:Eligio chase Jr, 05/23/2025 07:30:00 AM, [address] [place] [address] , [place], [place], [id number], Insurance Providers Payer Name Payer Address Payer Phone Subscriber Number Group Number Insured Name Patient Relationship to Insured Coverage Start Date Coverage End Date [facility] [address] [place] [address] [id number] ANTION[employer]TE STRANGE Self - patient is the insured Medical (General) History Medical History History ICD Code elevated cholesterol arthritis involving the back and hip Denies KS,DM,CVA,Lung disease,renal dise ase sleep apnea-cpap machine Surgical History Surgery Date(Month/Year) left knee replacement right hip replacement skin cancer abd removed right knee replacement on 10/10/13 vasectomy carpal tunnel bilateral deviated septum repair back surgery
--- OUTSIDE RECORDS SUMMARY | 2025-03-31 07:59 | XMS_ITS | Clinical Summary ---
Author Organization [facility] Address [address] [place] [address] Phone Care Team Providers Care Backup Administrative Coordinator Name Role Phone Tom Saeed MD Primary Care Provider +1- [phone] Allergies Active Allergy Reactions Criticality Noted Date [...] Encounters Date Type Department Care Team Description 03/28/2025 9:15 AM EDT Office Visit [address] [address] Penelope Mehta PA Menard-Johnston, Erin, PT Acute postoperative pain of left knee (Primary Dx) 03/22/2025 12:45 PM EDT Office Visit [address] [address] Penelope Mehta PA Menard-Johnston, Erin, PT Acute postoperative pain of left knee (Primary Dx) 03/20/2025 12:45 PM EDT Office Visit [address] [address] Penelope Gallegos PA Menard-Johnston, Erin, PT Acute postoperative pain of left knee (Primary Dx) 02/24/2025 Transcribe Orders [facility] [address] [place] [address] Palmira Glass Encounter for rehabilitation (Primary Dx) 01/30/2025 Orders Only [facility] [address] [place] [address] Homehealth, Interface ProviderMD from Last 3 Months [...] Care Team (Late st Contact Info) Description 04/03/2025 12:45 PM EDT Office Visit [facility] [address] [place] [address] Penelope Mehta PA [address] [place] [address] Palmira Lazo, PT [address] [place] [address] [email or web address] 04/05/2025 12:45 PM EDT Office Visit [facility] [address] [place] [address] Penelope Mehta PA [address] [place] [address] Palmira Lazo, PT [address] [place] [address] [email or web address] 04/11/2025 12:45 PM EDT Office Visit [facility] [address] [place] [address] Penelope Mehta PA [address] [place] [address] Palmira Lazo, PT [address] [place] [address] [email or web address] 04/13/2025 12:45 PM EDT Office Visit [facility] [address] [place] [address] Penelope Mehta PA [address] [place] [address] Palmira Lazo, PT [address] [place] [address] [email or web address] 04/17/2025 12:45 PM EDT Office Visit [facility] [address] [place] [address] Penelope Mehta PA [address] [place] [address] Palmira Lazo, PT [address] [place] [address] [email or web address] 04/20/2025 11:30 AM EDT Office Visit [facility] [address] [place] [address] Penelope Mehta PA [address] [place] [address] Palmira Lazo, PT [address] [place] [address] [email or web address] 04/24/2025 12:45 PM EDT Office Visit [facility] [address] [place] [address] Penelope Mehta PA [address] [place] [address] Palmira Lazo, PT [address] [place] [address] [email or web address] 04/26/2025 11:30 AM EDT Office Visit [facility] [address] [place] [address] Penelope Mehta PA [address] [place] [address] Palmira Lazo, PT [address] [place] [address] [email or web address] 05/01/2025 11:30 AM EDT Office Visit [facility] [address] [place] [address] Penelope Mehta PA [address] [place] [address] Palmira Lazo, PT [address] [place] [address] [email or web address] 05/04/2025 12:45 PM EDT Office Visit [facility] [address] [place] [address] Penelope Mehta PA [address] [place] [address] Palmira Lazo, PT [address] [place] [address] [email or web address] 05/08/2025 11:30 AM EDT Office Visit [facility] [address] [place] [address] Penelope Mehta PA [address] [place] [address] Palmira Lazo, PT [address] [place] [address] [email or web address] 05/10/2025 11:30 AM EDT Office Visit [address] [address] Penelope Mehta PA [address] [place] [address] Palmira Lazo, PT [address] [place] [address] [email or web address] Health Maintenance Due Date Last Done Comments LIPID PANEL 1961 DEPRESSION SCREENING 1973 HEPATITIS C SCREENING 1979 HIV ONE-TIME SCREENING (18-6 5 YEARS) 1979 COLOGUARD 2006 COLONOSCOPY 2006 COLORECTAL CANCER SCREENING 2006 FIT TEST 2006 FOBT 2006 SIGMOIDOSCOPY 2006 VIRTUAL COLONOSCOPY 2006 PNEUMOCOCCAL VACCINES (50+ years) (1 of 1 - PCV) 2011 ZOSTER VACCINES (1 of 2) 2011 COVID-19 VACCINE (4 - 2023-2 5 season) 2024 08/18/2021, 02/06/2021, [...] topic Medical Devices Not on file Insurance [address] [place], [place] [address] [place] [place] [address] HMO [facility] [address] [place] [address] [facility] Care Teams Backup Administrative Coordinator Relationship Specialty Start Date End Date Tom Saeed MD [address] [place] [address] PCP - General Internal Medicine 08/12/19 Additional Source Comments The information contained in this document represents components of the legal health record. It is not the complete legal health record.[facility]
[2025-05-18 11:50] VITALS: BMI 43.4
[2025-05-23 06:45] VITALS: BMI 43.0
[2025-05-23 06:53] VITALS: BP 135/82; PULSE 67; RESP 16; TEMP 36.2; O2SAT 98
[2025-05-23] MEDS: Lactated Ringers 1,000 ML 100 ML IVCONT (06:55)
--- NOTE | 2025-05-23 07:17 | HO.ANESPROP2 ---
Documented by User: Talisha Perry NP 05/19/25 08:17 HPI - Anesthesia Eval Consult details Narrative: 64yo M for Colonoscopy BMI 43 PMFSH Active Problems Active Problems: All Active Problems Status post total left knee replacement (Acute) Osteoarthritis of left knee (Acute) S/P right rotator cuff repair (Acute 06/30/23) Internal derangement of right shoulder (Acute) Shoulder weakness (Acute) Status post total hip replacement, right (Acute) Anemia (Acute) Pre-op evaluation (Acute) Establishing care with new doctor, encounter for (Acute) Skin cancer (Acute) Seasonal allergies (Acute) Arthritis (Acute) High cholesterol (Acute) LIANNA on CPAP (Acute) Past Medical History Medical History (Updated 05/18/25 @ 11:52 by Rae Mansfield RN) Hx of melanoma of skin Hypertension Anemia Establishing care with new doctor, encounter for 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 Mother No problems noted. Family history of problems with anesthesia: No Surgical History Surgical History (Updated 05/18/25 @ 11:49 by Rae Mansfield RN) History of total left knee replacement H/O repair of right rotator cuff H/O total hip arthroplasty S/P skin cancer resection History of bilateral carpal tunnel release S/P lumbar microdiscectomy Hx of nasal septoplasty History of vasectomy Hx of colonoscopy (~12/20/21) History of total right knee replacement Hx of esophagogastroduodenoscopy History of Problems with Anesthesia: No Social History Social History Household Members: Spouse Household Members Other:: and daughter Housing: House Are you a primary adult caregiver to a significant other at home: No Do you presently have visiting nurse or other home services: No Alcohol intake: current Alcohol intake frequency: a few times a month Comment: COUNTS CORRECT Patient Tobacco Use Status: Never used Tobacco Use of substances other than those prescribed or required for medical reasons: No Advance Directives: No Advance Directives Information Provided: Yes service: No Current occupational status: employed and retired 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 Cognitive needs: No Hearing needs: No Vision needs: Yes (rx glasses) Meds Allergies Allergy/AdvReac Type Severity Reaction Status Date / Time morphine Allergy Intermediate respiratory Verified 03/16/25 15:27 rate dropped seasonal Allergy Intermediate nasal Uncoded 03/16/25 15:27 congestion, affects hearing Home Medications ?Medication ?Instructions ?Recorded ?Confirmed ?Last Taken ?Type multivitamin with iron 1 tab PO DAILY 01/31/25 05/18/25 02/21/25 History Exam Height,Weight and Vital Signs: Height 5 ft 7.5 in Weight 127.641 kg Assessment and Plan Assessment Anesthesia Assessment: Chart Reviewed Final Anesthetic Review Family History of Problems with Anesthesia: No History of Problems with Anesthesia: No Documented by User: Paulina Bell DO 05/23/25 07:18 [facility] Past Medical History Medical History (Updated 05/18/25 @ 11:52 by Rae Mansfield RN) Hx of melanoma of skin Hypertension Anemia Establishing care with new doctor, encounter for 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 Mother No problems noted. Family history of problems with anesthesia: No Surgical History Surgical History (Updated 05/18/25 @ 11:49 by Rae Mansfield RN) History of total left knee replacement H/O repair of right rotator cuff H/O total hip arthroplasty S/P skin cancer resection History of bilateral carpal tunnel release S/P lumbar microdiscectomy Hx of nasal septoplasty History of vasectomy Hx of colonoscopy (~12/20/21) History of total right knee replacement Hx of esophagogastroduodenoscopy History of Problems with Anesthesia: No Social History Social History Household Members: Spouse Household Members Other:: and daughter Housing: House Are you a primary adult caregiver to a significant other at home: No Do you presently have visiting nurse or other home services: No Alcohol intake: current Alcohol intake frequency: a few times a month Comment: COUNTS CORRECT Patient Tobacco Use Status: Never used Tobacco Use of substances other than those prescribed or required for medical reasons: No Advance Directives: No Advance Directives Information Provided: Yes service: No Current occupational status: employed and retired 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 Cognitive needs: No Hearing needs: No Vision needs: Yes (rx glasses) Meds Allergies Allergy/AdvReac Type Severity Reaction Status Date / Time morphine Allergy Intermediate respiratory Verified 03/16/25 15:27 rate dropped seasonal Allergy Intermediate nasal Uncoded 03/16/25 15:27 congestion, affects hearing Home Medications ?Medication ?Instructions ?Recorded ?Confirmed ?Last Taken ?Type multivitamin with iron 1 tab PO DAILY 01/31/25 05/18/25 02/21/25 History Exam Exam Date and Time: 05/23/25 0710 Height,Weight and Vital Signs: Height 5 ft 7.5 in Weight 127.641 kg Vital Signs Temperature 97.1 F 05/23/25 06:53 Pulse Rate 67 05/23/25 06:53 Respiratory Rate 16 05/23/25 06:53 Blood Pressure 135/82 05/23/25 06:53 Pulse Oximetry 98 05/23/25 06:53 Oxygen Delivery Method Room Air 05/23/25 06:53 Temperature 97.1 F 05/23/25 06:53 Pulse Rate 67 05/23/25 06:53 Respiratory Rate 16 05/23/25 06:53 Blood Pressure 135/82 05/23/25 06:53 Pulse Oximetry 98 05/23/25 06:53 Oxygen Delivery Method Room Air 05/23/25 06:53 Airway Mallampati Class: III TM Dist: <=3cm Neck ROM: Full Loose/Missing/Broken Teeth: No (patient denies any loose or broken teeth) Heart: S1S2 Lungs: CTAB Assessment and Plan Assessment Anesthesia Assessment: Anesthesia Plan Discussed and Chart Reviewed Final Anesthetic Review Family History of Problems with Anesthesia: No History of Problems with Anesthesia: No NPO: Yes ASA Class: III Final Preanesthetic Review: No Changes in Pt Med Stat, Meds/Allgs Chart Reviewed, Consent Obtained/Reviewed and Anes Risks/Benef Reviewed Patient Risk: Low Procedure Risk: Low Anesthetic Plan Anesthetic Plan: MAC: and Agree w/ Assess. and Plan Disposition: Standard PACU
--- NOTE | 2025-05-23 07:22 | MHC.SHP ---
Pre-Procedural Eval Section A - 24 Hr Update-Section A only Date of Service: 05/23/25 Section B - Complete if H&P > 30 days Chief Complaint: screening Details of Present Illness: see H&P no changes Relevant Family History (Specify if Yes): No Relevant Social History: None Present Medications: see Short Stay Collaborative assessment Medical History: No relevant PMH History of Previous Operations: No relevant previous surgery Allergies: Allergies Allergy/AdvReac Type Severity Reaction Status Date / Time morphine Allergy Intermediate respiratory Verified 03/16/25 15:27 rate dropped seasonal Allergy Intermediate nasal Uncoded 03/16/25 15:27 congestion, affects hearing Review of Systems Sugical H&P ROS: Negative: Constitution, Cardiovascular, Respiratory, Neurological, Psychiatric, Hem-Onc, Allergic/Immunologic, Gastrointestinal, Genitourinary, Musculoskeletal, Integumentary, Endocrine and Eyes/Ears/Nose/Throat Exam Surgical H&P Exam: Normal: HEENT, Normal: Heart, Normal: Lungs, Normal: Extremities, Normal: Abdomen, Normal: Skin and Normal: Neurological Plan Diagnosis/Plan: Unchanged I have reviewed the history and physical and performed a pertinent physical examination on my patient. No changes have occurred unless specified. Time Spent With Patient Time: Total time managing care of this patient today ____ minutes.
[2025-05-23 07:59] VITALS: BP 131/78; PULSE 67; RESP 16; TEMP 36.4; O2SAT 95
[2025-05-23 08:14] VITALS: BP 131/78; PULSE 64; RESP 18; TEMP 36.1; O2SAT 97
--- NOTE | 2025-05-23 09:13 | OP_ITS ---
DATE OF SERVICE: 05/23/2025 SURGEON: Eligio Guillen MD INDICATIONS: Colon cancer screening and prior history of adenomatous colon polyps. PREOPERATIVE DIAGNOSIS: POSTOPERATIVE DIAGNOSIS: PROCEDURE PERFORMED: Colonoscopy to the terminal ileum with biopsy. ESTIMATED BLOOD LOSS: COMPLICATIONS: ANESTHESIA: Monitored anesthesia care. ASSISTANTS: SPECIMENS: DESCRIPTION OF PROCEDURE: A history and physical was performed. The risks and benefits of the procedure were explained to the patient and informed consent was obtained. The patient was placed in the left lateral decubitus position. A digital rectal exam was performed and was found to be normal. The Olympus pediatric video colonoscope was introduced into the rectum and advanced to the cecum. The cecum was identified by transillumination, palpation, and identification of ileocecal valve. Examination was performed. The scope was removed. He tolerated the procedure well and was returned to the recovery area in stable condition. FINDINGS: The terminal ileum was examined and appeared normal. The visualized colonic mucosa was normal. The quality of the prep was good. In the right colon were 3 less than 5 mm sessile polyps, which were removed with a biopsy forceps. No other polyps were identified. Retroflexed examination showed small internal hemorrhoids. IMPRESSION: Colon polyps. RECOMMENDATION: Follow up the biopsy results. MD HARINI Benoit/JAMESL / [id number]
== END 2025-05-23 08:29 | disposition home or self-care (01) ==
PROVIDERS: PCP Internal Medicine; Visit Provider Internal Medicine Gastroenterology
PROC: 0DJD8ZZ Inspection of Lower Intestinal Tract, Via Natural or Artificial Opening Endoscopic (ICD-10-PCS; CPT 45378; principal; 2025-05-23 07:30)
DX: Z12.11 Encounter for screening for malignant neoplasm of colon (principal); Z86.0101 Personal history of adenomatous and serrated colon polyps; Z80.0 Family history of malignant neoplasm of digestive organs; K64.8 Other hemorrhoids; D12.2 Benign neoplasm of ascending colon; K63.5 Polyp of colon
CPT/HCPCS: 45380; 88305; J2704